=== PATIENT | male | born 1935 | race Caucasian/White ===

== ENCOUNTER 2016-10-11 15:30 | Inpatient (IN) | payer MEDICARE, BC ==
[~2016-10-11] VITALS: Ht 170.2 cm; Wt 95.9 kg
[~2016-10-11 15:30] MED LIST: ALBU6.7H INH; ASPI325T PO; CEFT500T PO; DIGO0.25 PO; FURO1TAB93; GLUC500C3 PO; GLUC750T22 OR; GLUCTAB PO; METO25 PO; NEXI20CA; POTA-243; PRIN10TA; SIMV20TA PO; SPACER; SPIR25TA PO; WARF1TAB PO; ZITH500T PO
[2016-10-11 15:45] VITALS: BP 123/58; PULSE 80; RESP 18; TEMP 97.7; O2SAT 92
--- NOTE | 2016-10-11 15:57 | PD ---
HPI . Low back pain Chief Complaint: Fall Time Seen by Provider: 15:46 Travel History International Travel<30 days: No Contact w/Intl Traveler<30days: No Traveled to known affect area: No History of Present Illness HPI Patient presents with low back pain following a fall. He states that he was up a ladder trimming some trees when the ladder swayed causing him to fall. He estimates that he fell about 10 feet. He is not sure if he landed on his back or on his buttocks. He comes in complaining with low back pain. He denies any other injuries. He describes a sharp pain that is "real bad." He reports neuropathy in his feet. Reports no change in the numbness since the fall. PFSH Past Medical History Atrial Fibrillation: Yes Blood Disorders: No Heart Rhythm Problems: Yes (AFIB) Cancer: Yes (h/o prostate) Cardiovascular Problems: Yes High Cholesterol: Yes Diabetes: Yes Diminished Hearing: No Endocrine: No GERD: Yes Genitourinary: Yes (FREQUENT AND SMALL AMOUNT) Hypertension: Yes (ran out of lisinopril x 2 weeks ago) Immune Disorder: No Musculoskeletal: No Neurologic: No Psychiatric: No Respiratory: No Sleep Apnea: Yes (C-PAP AT HOME) PNEUMOCCOCAL Vaccine (Year): 2009 Past Surgical History Abdominal Surgery: No Body Medical Devices: vantus implant 04/06 Cardiac Surgery: No Prostatectomy: Yes (radical 1998) Other Surgery: Yes (PILONIDAL CYST 1965, PROSTATECTOMY/RADICAL 1998) Social History Alcohol Use: No Tobacco Use: No Substance Use: No Allergies-Medications (Allergen,Severity, Reaction): Coded Allergies: No Known Allergies (Verified , 10/11/16) Reported Meds & Prescriptions Reported Meds & Active Scripts Active Reported Fish Oil ([place]-3 Fatty Acids) 500 Mg Cap Unknown Dose PO TID Vitamin B Complex (B-Complex Vitamins) 1 Tab 1 Tab PO DAILY Warfarin 1 Mg Tab 0.5 Mg PO DAILY@1600 Metoprolol Tartrate 25 Mg Tab 25 Mg PO BID Warfarin 6 Mg Tab 6 Mg PO DAILY@1600 Simvastatin 20 Mg Tab 20 Mg PO DAILY Gabapentin 100 Mg Cap 100 Mg PO TID Aldactone (Spironolactone) 25 Mg Tab 25 Mg PO DAILY Lisinopril 10 Mg Tab 10 Mg PO HS Metformin (Metformin HCl) 500 Mg Tab 500 Mg PO BID With meals Ranitidine (Ranitidine HCl) 150 Mg Tab 150 Mg PO BID K-Tab (Potassium Chloride) 10 Meq Tab 10 Meq PO DAILY Lasix (Furosemide) 40 Mg Tab 40 Mg PO DAILY Review of Systems Except as stated in HPI: all other systems reviewed are Neg HENT: No: Headaches, Lightheadedness Cardiovascular: No: Chest Pain or Discomfort Respiratory: No: Shortness of Breath Gastrointestinal: No: Nausea, Vomiting, Diarrhea, Abdominal Pain Genitourinary: No: Incontinence Musculoskeletal: Positive: Myalgias, Arthralgias Neurologic: Positive: Paresthesia (in his feet) Physical Exam Narrative GENERAL: Healthy-appearing older man in no acute distress. SKIN: Warm and dry. HEAD: Atraumatic. Normocephalic. EYES: Pupils equal and round. Extraocular movements are intact. ENT: No nasal bleeding or discharge. Mucous membranes pink and moist. NECK: Trachea midline. Neck is supple. CARDIOVASCULAR: Regular rate and rhythm. Heart sounds are normal. RESPIRATORY: No accessory muscle use. Lungs are clear with full air movement throughout. GASTROINTESTINAL: Abdomen soft, non-tender, nondistended. MUSCULOSKELETAL: No obvious deformities. No edema. Tender in the low back. Decreased range of motion. NEUROLOGICAL: Awake and alert. No obvious cranial nerve deficits. Motor grossly within normal limits. Normal speech. PSYCHIATRIC: Appropriate mood and affect; insight and judgment normal. Data Data Last Documented VS Vital Signs Date Time Temp Pulse Resp B/P Pulse Ox O2 Delivery O2 Flow Rate FiO2 10/11/16 15:45 97.7 80 18 123/[address] Lumb Spine W/O Contrast (10/11/16 15:50) ^ Saline Lock (10/11/16 15:50) Morphine Inj (Morphine Inj) (10/11/16 16:00) Ondansetron Inj (Zofran Inj) (10/11/16 16:00) Morphine Inj (Morphine Inj) (10/11/16 16:00) Ondansetron Odt (Zofran Odt) (10/11/16 16:00) MDM Medical Decision Making Medical Screen Exam Complete: Yes Emergency Medical Condition: Yes Differential Diagnosis Differential diagnosis includes but is not limited to muscular low back pain, DDD, spinal stenosis, epidural abscess, sciatica, kidney infection or stone. Narrative Course Patient presents complaining with a low back injury secondary to a 10 foot fall. I have ordered an L-spine CT and morphine for pain. L spine CT CONCLUSION: 1. Moderate to severe compression/burst fracture of L2 that appears acute. Mild retropulsion and mild fracture-associated spinal stenosis, slightly eccentric towards the left. No epidural hematoma. 2. Mild chronic appearing wedge deformity of T12 and L1. 3. Mild multilevel degenerative changes as above. No high-grade foraminal or spinal stenosis demonstrated. Physician Communication Physician Communication Dr. Perez, neurosurgery, was consulted. He feels that the patient should have been a trauma alert and requests trauma consult. Diagnosis Primary Impression: L2 vertebral fracture Qualified Code: S32.021A - Closed stable burst fracture of second lumbar vertebra, initial encounter Admitting Information Admitting Physician Requests: Admit Condition: Stable Joanna Norton MD Oct 11, 2016 15:57
[2016-10-11] MEDS ORDERED: MORPHINE SULFATE 8 MG/ML INJ IM ONE (16:00)
[2016-10-11] MEDS ORDERED: MORPHINE SULFATE 8 MG/ML INJ IV PUSH ONE (16:00)
[2016-10-11] MEDS ORDERED: ONDANSETRON HCL 4 MG/2 ML VIAL IV PUSH ONE (16:00)
[2016-10-11] MEDS ORDERED: ONDANSETRON ODT 4 MG TAB PO ONE (16:00)
[2016-10-11] MEDS ORDERED: SIMV20TA PO (16:48)
[2016-10-11] MEDS ORDERED: FURO1TAB60 PO (16:48)
[2016-10-11] MEDS ORDERED: METO25TA3 PO (16:48)
[2016-10-11] MEDS ORDERED: LISI10TA3 PO (16:48)
[2016-10-11] MEDS ORDERED: GABA100C4 PO (16:48)
[2016-10-11] MEDS ORDERED: K-TA10TA PO (16:48)
[2016-10-11] MEDS ORDERED: METF500T PO (16:48)
[2016-10-11] MEDS ORDERED: WARF-60 PO (16:48)
[2016-10-11] MEDS ORDERED: RANI150T PO (16:48)
[2016-10-11] MEDS ORDERED: SPIR25 PO (16:48)
[2016-10-11] MEDS ORDERED: WARF4TAB52 PO (16:59)
[2016-10-11] MEDS ORDERED: FISH500C PO (17:01)
[2016-10-11] MEDS ORDERED: VITATAB11 PO (17:01)
--- NOTE | 2016-10-11 18:37 | RADRPT ---
EXAM DATE/TIME: 10/11/2016 17:24 [facility] COMPARISON: No previous studies available for comparison. INDICATIONS : Fell off ladder today,lower back pain. RADIATION DOSE: 28.77 CTDIvol (mGy) MEDICAL HISTORY : Cardiovascular disease. Hypertension. Carcinoma, prostate.Diabetes SURGICAL HISTORY : Prostatectomy. ENCOUNTER: Initial ACUITY: 1 day PAIN SCALE: 8/10 LOCATION: Lumbar TECHNIQUE: Volumetric scanning of the lumbar spine was performed. Multiplanar reconstructions in the sagittal, coronal and oblique axial planes were performed. Using automated exposure control and adjustment of the mA and/or kV according to patient size, radiation dose was kept as low as reasonably achievable t o obtain optimal diagnostic quality images. FINDINGS: Moderate to severe, acute appearing compression/burst fracture seen of the L2 vertebral body. There i s about 4 mm of retropulsion causing mild fracture-associated spinal stenosis. There is no significan t fracture-associated foraminal stenosis at L1/L2 or L2/L3. Mild, chronic appearing anterior wedging seen of the T12 and L1 vertebral bodies without cortical nabila ak or trabecular disruption. There is a moderate-sized left paracentral disc protrusion at T12/L1 causing mild spinal stenosis but doubt conus compression or transiting nerve root impingement. There are small, broad posterior disc protrusions at the other levels. Mild bilateral foraminal stenosis seen from L2/L3-L5/S1. No signific ant spinal stenosis demonstrated. No evidence of an epidural hematoma. Incidentally seen moderate to large hiatal hernia. CONCLUSION: 1. Moderate to severe compression/burst fracture of L2 that appears acute. Mild retropulsion and mild fracture-associated spinal stenosis, slightly eccentric towards the left. No epidural hematoma. 2. Mild chronic appearing wedge deformity of T12 and L1. 3. Mild multilevel degenerative changes as above. No high-grade foraminal or spinal stenosis demonstr ated. Jm Chong MD on October 11, 2016 at 18:28 Board Certified Radiologist. This report was verified electronically.
[2016-10-11 19:25] LABS: AUTOMATED NEUTROPHIL # 12.2 TH/MM3 (1.8-7.7); BASOPHIL % 0.3 % (0.0-2.0); HEMATOCRIT 38.8 % (39.0-51.0); HEMO FLAGS DIFF FINAL; LYMPH % 10.1 % (9.0-44.0); LYMPHOCYTE # 1.5 TH/MM3 (1.0-4.8); MEAN CELL VOLUME 84.7 FL (80.0-100.0); MEAN CORPUSCULAR HEMOGLOBIN 28.5 PG (27.0-34.0); MEAN CORPUSCULAR HGB CONC 33.7 % (32.0-36.0); MONO % 4.8 % (0.0-8.0); NEUT % 84.8 % (16.0-70.0); PLATELET COUNT 257 TH/MM3 (150-450); RED BLOOD COUNT 4.59 MIL/MM3 (4.50-5.90); RED CELL DISTRIBUTION WIDTH 14.4 % (11.6-17.2); WHITE BLOOD COUNT 14.4 TH/MM3 (4.0-11.0)
--- NOTE | 2016-10-11 19:31 | RADRPT ---
EXAM DATE/TIME: 10/11/2016 19:07 [facility] COMPARISON: No previous studies available for comparison. INDICATIONS : Trauma to chest post fall from ladder today MEDICAL HISTORY : None. SURGICAL HISTORY : None. ENCOUNTER: Initial ACUITY: 1 day PAIN SCORE: 0/10 LOCATION: Bilateral chest FINDINGS: Dense consolidation seen laterally at the left lung base, nonspecific but in the setting of trauma ma y indicate pulmonary contusion and/or hemothorax. A don't see a pneumothorax. Right lung reasonably c lear. Mild cardiomegaly noted. Thoracic aorta is tortuous. No clearly see a fracture. CONCLUSION: Nonspecific opacification laterally of the left lung base. A CT of the chest is suggested, preferably with intravenous contrast. Please see above. Right lung is clear. Jm Chong MD on October 11, 2016 at 19:28 Board Certified Radiologist. This report was verified electronically.
--- NOTE | 2016-10-11 19:33 | RADRPT ---
EXAM DATE/TIME: 10/11/2016 19:04 [facility] COMPARISON: No previous studies available for comparison. INDICATIONS : Trauma to chest post fall from ladder today MEDICAL HISTORY : None. SURGICAL HISTORY : Prostatectomy. ENCOUNTER: Initial ACUITY: 1 day PAIN SCORE: 0/10 LOCATION: Bilateral pelvis FINDINGS: A single frontal view of the pelvis demonstrates no evidence of fracture. The bony pelvic ring is in tact. Bony mineralization is normal. The soft tissues are intact. CONCLUSION: Intact pelvis. Jm Chong MD on October 11, 2016 at 19:31 Board Certified Radiologist. This report was verified electronically.
[2016-10-11 19:38] LABS: INTERNATIONAL NORMALIZED RATIO 2.5 RATIO; PROTHROMBIN TIME - PATIENT 29.1 SEC (9.8-11.6)
[2016-10-11 19:47] VITALS: BP 99/55; PULSE 90; RESP 18; O2SAT 92
[2016-10-11 19:49] LABS: BICARBONATE 25.6 MEQ/L (21.0-32.0); POTASSIUM 4.6 MEQ/L (3.5-5.1)
--- NOTE | 2016-10-11 19:52 | PD.CONS ---
[facility] Service Neurosurgery Consult Requested By Dr Hummel Reason for Consult Fall from a ladder > 10 feet Primary Care Physician Dante Manning, DO History of Present Illness This is a 81 year old male who was up a ladder trimming some trees when the ladder swayed causing him to fall. He estimates that he fell about 10 feet. He is not sure if he landed on his back or on his buttocks. Sudden onset of low back pain. No LOC. N sezire activity. No tongue bitting. Nop incontnence of stool or urine. He comes to the emergency department complaining of severe low back pain. His pain is located in the upper lumbar and thoracolumbar region. Severity 10/10. He describes a sharp, stabbing pain. he has numbness in his lower eextremities and feet, which is chronic. CT lumbar spine showed a L2 fracture. Neurosurtgical consultation was requested. Review of Systems Constitutional: DENIES: Diaphoretic episodes, Fatigue, Fever, Weight gain, Weight loss, Chills, Dizziness, Change in appetite, Night Sweats Endocrine: DENIES: Heat/cold intolerance, Polydipsia, Polyuria, Polyphagia Eyes: DENIES: Blurred vision, Diplopia, Eye inflammation, Eye pain, Vision loss , Photosensitivity, Double Vision Ears, nose, mouth, throat: DENIES: Tinnitus, Hearing loss, Vertigo, Nasal discharge, Oral lesions, Throat pain, Hoarseness, Ear Pain, Running Nose, Epistaxis, Sinus Pain, Toothache, Odynophagia Respiratory: DENIES: Apneas, Cough, Snoring, Wheezing, Hemoptysis, Sputum production, Shortness of breath Cardiovascular: DENIES: Chest pain, Palpitations, Syncope, Dyspnea on Exertion , PND, Lower Extremity Edema, Orthopnea, Claudication Genitourinary: DENIES: Sexual dysfunction, Urinary frequency, Urinary incontinence, Urgency, Hematuria, Dysuria, Nocturia, Penile Discharge, Testicular Pain, Testicular Swelling Musculoskeletal: COMPLAINS OF: Joint pain, Muscle aches, Back pain, DENIES: Stiffness, Joint Swelling, Neck pain Integumentary: DENIES: Abnormal pigmentation, Nail changes, Pruritus, Rash Hematologic/lymphatic: DENIES: Bruising, Lymphadenopathy Immunologic/allergic: DENIES: Eczema, Urticaria Neurologic: COMPLAINS OF: Abnormal gait, Paresthesias, DENIES: Headache, Localized weakness, Seizures, Speech Problems, Tremor, Poor Balance Psychiatric: DENIES: Anxiety, Confusion, Mood changes, Depression, Hallucinations, Agitation, Suicidal Ideation, Homicidal Ideation, Delusions Past Family Social History Allergies: Coded Allergies: No Known Allergies (Verified , 10/11/16) Past Medical History Atrial Fibrillation AFIB prostate Ca High Cholesterol Diabetes mellitus GERD Hypertension Sleep Apnea, C-PAP AT HOME Past Surgical History Prostatectomy PILONIDAL CYST Reported Medications Fish Oil ([place]-3 Fatty Acids) 500 Mg Cap Unknown Dose PO TID Vitamin B Complex (B-Complex Vitamins) 1 Tab 1 Tab PO DAILY Warfarin 1 Mg Tab 0.5 Mg PO DAILY@1600 Metoprolol Tartrate 25 Mg Tab 25 Mg PO BID Warfarin 6 Mg Tab 6 Mg PO DAILY@1600 Simvastatin 20 Mg Tab 20 Mg PO DAILY Gabapentin 100 Mg Cap 100 Mg PO TID Aldactone (Spironolactone) 25 Mg Tab 25 Mg PO DAILY Lisinopril 10 Mg Tab 10 Mg PO HS Metformin (Metformin HCl) 500 Mg Tab 500 Mg PO BID With meals Ranitidine (Ranitidine HCl) 150 Mg Tab 150 Mg PO BID K-Tab (Potassium Chloride) 10 Meq Tab 10 Meq PO DAILY Lasix (Furosemide) 40 Mg Tab 40 Mg PO DAILY Active Ordered Medications Current Medications Morphine Sulfate (Morphine Inj) 8 mg ONCE ONCE IV PUSH ; Start 10/11/16 at 16: 00; Stop 10/11/16 at 16:00; Status DC Ondansetron HCl (Zofran Inj) 4 mg ONCE ONCE IV PUSH ; Start 10/11/16 at 16:00; Stop 10/11/16 at 16:00; Status DC Morphine Sulfate (Morphine Inj) 8 mg ONCE ONCE IM Last administered on 16:47; Start 10/11/16 at 16:00; Stop 10/11/16 at 16:01; Status DC Ondansetron HCl (Zofran Odt) 4 mg ONCE ONCE PO Last administered on 16:47; Start 10/11/16 at 16:00; Stop 10/11/16 at 16:01; Status DC Coumadin Family History Non contributory Social History Alcohol Use: No Tobacco Use: No Substance Use: No Physical Exam Vital Signs Vital Signs Date Time Temp Pulse Resp B/P Pulse Ox O2 Delivery O2 Flow Rate FiO2 10/11/16 15:45 97.7 80 18 123/58 92 Physical Exam He is alert, awake and oriented to time, place and person. Speech is fluent. Higher cognitive functions are normal. Cranial nerve examination demonstrates the pupils to be equal, round, and reactive to light. Extra-ocular movements are intact. Facial motor and sensory function are normal and symmetrical. Gross hearing is intact, bilaterally. The uvula is midline and elevates symmetrically with the soft palate. Sternocleidomastoid and trapezius muscles have normal and symmetrical strength. Other cranial nerves are intact. Neck is soft and supple. Cervical spine has a full range of motion in anterior flexion, extension, lateral bending, and rotation without pain. There is no tenderness to palpation to the spinous processes or paraspinal muscles. Muscle testing reveals normal bulk and tone overall without rigidity, spasticity , fasciculations, or atrophy. Muscle strength is 5/5 in all muscle groups of both upper extremities including deltoid, biceps, triceps, brachioradialis, wrist extension and manager title. In the lower extremities, strength examination is limited with giveaway due to pain. Good strenght in iliopsoas, quadriceps, hamstrings, plantar flexion, dorsiflexion, and extensor hallicus longus. Sensory examination is decreased in both feet Deep tendon reflexes are 2+ and symmetrical in the biceps, triceps, and brachioradialis, bilaterally, in the upper extremities. In the lower extremities , the patellar and Achilles are 2+, bilaterally. There is a bilateral plantar flexion response. Hoffmanns sign is negative. There is no clonus or other abnormal reflexes noted. Cerebellar examination is intact to [id number] test, rapid rhythmic alternating motion. There is no dysmetria, dysdiadochokinesia, truncal ataxia, or tremor. Laboratory Laboratory Tests Test 10/11/16 19:15 White Blood Count 14.4 Red Blood Count 4.59 Hemoglobin 13.1 Hematocrit 38.8 Mean Corpuscular Volume 84.7 Mean Corpuscular Hemoglobin 28.5 Mean Corpuscular Hemoglobin 33.7 Concent Red Cell Distribution Width 14.4 Platelet Count 257 Mean Platelet Volume 7.3 Neutrophils (%) (Auto) 84.8 Lymphocytes (%) (Auto) 10.1 Monocytes (%) (Auto) 4.8 Eosinophils (%) (Auto) 0.0 Basophils (%) (Auto) 0.3 Neutrophils # (Auto) 12.2 Lymphocytes # (Auto) 1.5 Monocytes # (Auto) 0.7 Eosinophils # (Auto) 0.0 Basophils # (Auto) 0.0 CBC Comment DIFF FINAL Differential Comment Result Diagram: 10/11/16 1915 Imaging Last Impressions Chest X-Ray 10/11/16 1854 Signed Impressions: Service Date/Time: Tuesday, October 11, 2016 19:07 - CONCLUSION: Nonspecific opacification laterally of the left lung base. A CT of the chest is suggested, preferably with intravenous contrast. Please see above. Right lung is clear. Jm Chong MD Lumbar Spine CT 10/11/16 1550 Signed Impressions: Service Date/Time: Tuesday, October 11, 2016 17:24 - CONCLUSION: 1. Moderate to severe compression/burst fracture of L2 that appears acute. Mild retropulsion and mild fracture-associated spinal stenosis, slightly eccentric towards the left. No epidural hematoma. 2. Mild chronic appearing wedge deformity of T12 and L1. 3. Mild multilevel degenerative changes as above. No high-grade foraminal or spinal stenosis demonstrated. Jm Chong MD Assessment and Plan Assessment and Plan 1. Severe burst fracture of L2, acute. Mild retropulsion and mild fracture- associated spinal stenosis 2. chronic appearing wedge deformity of T12 and L1. Attending Statement I have reviewed his clinical and radiological studies. This patient clearly meets trauma alert criteria, almost 82 years old, fell from 10 feet with clinical evidence of a spinal fracture. Start neuro checks in a serial fashion. I am concerned that the fracture likely is unstable. Recommend admision to SICU. Follow up MRI ordered. Please consult trauma surgeon as the mechanism of trauma is concerning for other potential missed internal injuries, pulmonary contusion, etc He is anticoagulated with warfarin His INR is elevated. he will need to be corrected for potential surgery Respiratory. pulmonary toilette, nasotracheal suction, and breathing treatments with nebulizers. Lumbar fractures. Recommend a MRI lumbar spine [facility] PT and OT eval Nutrition. Oral diet Renal. monitor closely urine output, BUN and creatinine Endocrine. Monitor serial Acu checks and SSI for tight control ID monitor for signs of infection Protonix for stress ulcer prophylaxis Nicolas hose and SCD's for DVT prophylaxis Further recommendations depending on his clinical evaluation and follow up radiologic studies Mj Perez MD Oct 11, 2016 19:52
[2016-10-11 20:43] VITALS: BP 141/71; PULSE 87; RESP 18; O2SAT 93
[2016-10-11] MEDS ORDERED: IOHEXOL 350 MG/ML 10 ML VIAL (for RAD DIAG) IV ONE (21:14)
[2016-10-11] MEDS ORDERED: CHLORHEXIDINE GLUCONATE 2 % 1 PACK (2 CLOTHS) TOP PRN (21:15)
[2016-10-11] MEDS ORDERED: MISCELLANEOUS NURSING INFORMATION XX SCH (21:15)
[2016-10-11] MEDS ORDERED: SODIUM CHLORIDE 0.9% FLUSH 10 ML FLUSH IV FLUSH PRN (21:15)
--- NOTE | 2016-10-11 21:25 | RADRPT ---
EXAM DATE/TIME: 10/11/2016 21:09 [facility] COMPARISON: No previous studies available for comparison. INDICATIONS : Trauma. Fell off ladder today. RADIATION DOSE: 56.37 CTDIvol (mGy) MEDICAL HISTORY : Cardiovascular disease. Hypertension. Diabetes mellitus type 2. SURGICAL HISTORY : Prostatectomy. ENCOUNTER: Initial ACUITY: 1 day PAIN SCALE: 2/10 LOCATION: cranial TECHNIQUE: Multiple contiguous axial images were obtained of the head. Using automated exposure control and adj ustment of the mA and/or kV according to patient size, radiation dose was kept as low as reasonably a chievable to obtain optimal diagnostic quality images. FINDINGS: CEREBRUM: The ventricles are normal for age. No evidence of midline shift, mass lesion, hemorrhage or acute in farction. No extra-axial fluid collections are seen. POSTERIOR FOSSA: The cerebellum and brainstem are intact. The 4th ventricle is midline. The cerebellopontine angle i s unremarkable. EXTRACRANIAL: The visualized portion of the orbits is intact. SKULL: The calvaria is intact. No evidence of skull fracture. CONCLUSION: No bleed or other acute intracranial abnormality. Jm Chong MD on October 11, 2016 at 21:23 Board Certified Radiologist. This report was verified electronically.
--- NOTE | 2016-10-11 21:31 | RADRPT ---
EXAM DATE/TIME: 10/11/2016 21:09 [facility] COMPARISON: No previous studies available for comparison. INDICATIONS : Trauma. Fell off ladder today RADIATION DOSE: 26.70 CTDIvol (mGy) MEDICAL HISTORY : Cardiovascular disease. Hypertension. Diabetes mellitus type 2. SURGICAL HISTORY : Prostatectomy. ENCOUNTER: Initial ACUITY: 1 day PAIN SCALE: 2/10 LOCATION: neck TECHNIQUE: Volumetric scanning of the cervical spine was performed. Multiplanar reconstructions in the sagittal, coronal and oblique axial planes were performed. Using automated exposure control and adjustment o f the mA and/or kV according to patient size, radiation dose was kept as low as reasonably achievable to obtain optimal diagnostic quality images. FINDINGS: A couple millimeters of degenerative appearing retrolisthesis seen at C3/C4. No fracture or acute reno earing malalignment demonstrated. Moderate disc space narrowing with uncovertebral and facet osteoarthritis seen at each level from C3/ C4-C6/C7. There is moderate right foraminal stenosis at C3/C4 and C4/C5, mild foraminal stenosis at t he other levels. No significant spinal stenosis demonstrated CONCLUSION: Degenerative changes of the cervical spine as above. No fracture or acute malalignment. Jm Chong MD on October 11, 2016 at 21:27 Board Certified Radiologist. This report was verified electronically.
--- NOTE | 2016-10-11 21:35 | RADRPT ---
EXAM DATE/TIME: 10/11/2016 21:17 [facility] COMPARISON: No previous studies available for comparison. INDICATIONS : Trauma. Fell off ladder today IV CONTRAST: 95 cc Omnipaque 350 (iohexol) IV ; Cumulative dose for multiple exams. RADIATION DOSE: 18.52 CTDIvol (mGy) ; Combined studies - Thorax/Abdomen/Pelvis MEDICAL HISTORY : Cardiovascular disease. Hypertension. Diabetes mellitus type 2. SURGICAL HISTORY : Prostatectomy. ENCOUNTER: Initial ACUITY: 1 day PAIN SCALE: 2/10 LOCATION: Bilateral chest TECHNIQUE: Volumetric scanning of the chest was performed. Using automated exposure control and adjustment of t he mA and/or kV according to patient size, radiation dose was kept as low as reasonably achievable to obtain optimal diagnostic quality images. FINDINGS: Old, healed left rib fractures are present. Modestly exuberant callus formation and there is associat ed mild chronic appearing pleural thickening. No acute fracture demonstrated. Mild, bibasilar atelect asis noted. There is panchamber enlargement of the heart. Right and left-sided coronary artery calcification note d. No mediastinal hematoma. There is a moderate-sized hiatal hernia. CONCLUSION: 1. Other than trace bibasilar atelectasis, no acute abnormality demonstrated. 2. Old, healed left rib fractures with callus formation and mild deformity as well as mild, chronic p leural thickening. No acute fracture. 3. Moderate hiatal hernia. 4. Cardiomegaly and coronary artery calcification. Jm Chong MD on October 11, 2016 at 21:30 Board Certified Radiologist. This report was verified electronically.
--- NOTE | 2016-10-11 21:40 | RADRPT ---
EXAM DATE/TIME: 10/11/2016 21:17 [facility] COMPARISON: No previous studies available for comparison. INDICATIONS : Trauma. Fell off ladder today. IV CONTRAST: 95 cc Omnipaque 350 (iohexol) IV ; Cumulative dose for multiple exams. ORAL CONTRAST: No oral contrast ingested. RADIATION DOSE: 18.52 CTDIvol (mGy) ; Combined studies - Thorax/Abdomen/Pelvis MEDICAL HISTORY : Cardiovascular disease. Hypertension. Diabetes mellitus type 2. SURGICAL HISTORY : Prostatectomy. ENCOUNTER: Initial ACUITY: 1 day PAIN SCALE: 8/10 LOCATION: middle back and abdomen TECHNIQUE: Volumetric scanning of the abdomen and pelvis was performed. Using automated exposure control and ad justment of the mA and/or kV according to patient size, radiation dose was kept as low as reasonably achievable to obtain optimal diagnostic quality images. FINDINGS: LOWER LUNGS: The visualized lower lungs are clear. LIVER: Homogeneous density without lesion. There is no dilation of the biliary tree. No calcified gallston es. SPLEEN: Normal size without lesion. PANCREAS: Within normal limits. KIDNEYS: Normal in size and shape. There is no mass, stone or hydronephrosis. ADRENAL GLANDS: Within normal limits. VASCULAR: There is no aortic aneurysm. BOWEL/MESENTERY: The stomach, small bowel, and colon demonstrate no acute abnormality. There is no free intraperitone al air or fluid. ABDOMINAL WALL: Within normal limits. RETROPERITONEUM: There is no lymphadenopathy. BLADDER: 19 mm posterior nodular soft tissue opacities seen, series 6 image 88. REPRODUCTIVE: Previous prostatectomy. INGUINAL: Bilateral fat-containing inguinal hernias are present. The appendix is partly herniated on the right. No other bowel herniation demonstrated. MUSCULOSKELETAL: There is an L2 compression fracture. No other acute abnormalities are seen of the visualized osseous structures. CONCLUSION: 1. No visceral organ injury or other acute abnormality within the abdomen or pelvis. 2. Acute L2 burst fracture. 3. Nodular focus posteriorly of the urinary bladder. This is nonspecific. Patient has had previous pr ostatectomy and a localized area of mildly masslike scarring possible. True mass not excludable by th e CT appearance. Direct visualization with cystoscopy recommended when clinically feasible. 4. Bilateral inguinal hernias containing fat and the appendix on the right and containing fat only on the left. No acute complication demonstrated. Jm Chong MD on October 11, 2016 at 21:34 Board Certified Radiologist. This report was verified electronically.
[2016-10-11] MEDS: HYDROmorphone HCL PF 1 MG/ML VIAL IV PUSH PRN (21:44)
[2016-10-11] MEDS: ONDANSETRON HCL 4 MG/2 ML VIAL IV PRN (21:44)
--- NOTE | 2016-10-11 22:09 | HHI.HP ---
History of Present Illness Primary Care Physician Dante Manning, DO Admission Diagnosis L2 burst fx Diagnoses: (1) L2 vertebral fracture Diagnosis: Principal (2) Hypertension Diagnosis: Secondary (3) Diabetes mellitus Diagnosis: Secondary History of Present Illness pt was trimming trees on a ladder when he lost his balance and fell to the ground injuring his lower back ED xrays show burst fx of L2 Review of Systems Musculoskeletal: COMPLAINS OF: Back pain Past Family Social History Allergies: Coded Allergies: No Known Allergies (Verified , 10/11/16) Past Medical History hypertension a-fib type II diabetes Past Surgical History TURP Vasectomy Active Ordered Medications Current Medications Medications (Trade) Dose Ordered Sig/Rachel Route PRN Reason Start Time Stop Time Status Last Admin Dose Admin Sodium Chloride (NS 1000 ml Inj) 1,000 ml @ 100 mls/hr Q10H IV 10/11/16 21:02 Sodium Chloride (NS Flush) 2 ml UNSCH PRN IV FLUSH FLUSH AFTER USING IV ACCESS 10/11/16 21:15 Sodium Chloride (NS Flush) 2 ml BID IV FLUSH 10/11/16 21:15 Ondansetron HCl (Zofran Inj) 4 mg Q6H PRN IV NAUSEA OR VOMITING 10/11/16 21:15 10/11/16 21:44 Lactulose (Lactulose Liq) 30 ml DAILY PO 10/12/16 09:00 Miscellaneous Information 1 Q361D XX 10/11/16 21:15 Chlorhexidine Gluconate (Chlorhexidine 2% Cloth) 3 pack Taper DAILY@04 TOP 10/12/16 04:00 10/08/17 03:59 Chlorhexidine Gluconate (Chlorhexidine 2% Cloth) 3 pack UNSCH PRN TOP HYGIENIC CARE 10/11/16 21:15 Hydromorphone HCl (Dilaudid Pf Inj) 0.5 mg Q3HR PRN IV PUSH PAIN SCALE 5 TO 10 10/11/16 21:15 10/11/16 21:44 Hydromorphone HCl (Dilaudid Pf Inj) 0.2 mg Q3HR PRN IV PUSH PAIN SCALE 1 TO 5 10/11/16 21:15 Family History father of an [place] mother of old age Social History non smoker rare drinker Physical Exam Vital Signs Vital Signs Date Time Temp Pulse Resp B/P Pulse Ox O2 Delivery O2 Flow Rate FiO2 10/11/16 20:43 87 18 141/71 93 Room Air 10/11/16 19:47 90 18 99/55 92 Nasal Cannula 2 10/11/16 15:45 97.7 80 18 123/58 92 Physical Exam GENERAL: This is a well-nourished, well-developed patient, in no apparent distress. SKIN: No rashes, ecchymoses or lesions. Cool and dry. HEAD: Atraumatic. Normocephalic. No temporal or scalp tenderness. EYES: Pupils equal round and reactive. Extraocular motions intact. No scleral icterus. No injection or drainage. ENT: Nose without bleeding, purulent drainage or septal hematoma. Throat without erythema, tonsillar hypertrophy or exudate. Uvula midline. Airway patent. NECK: Trachea midline. No JVD or lymphadenopathy. Supple, nontender, no meningeal signs. CARDIOVASCULAR: Regular rate and rhythm without murmurs, gallops, or rubs. RESPIRATORY: Clear to auscultation. Breath sounds equal bilaterally. No wheezes , rales, or rhonchi. GASTROINTESTINAL: Abdomen soft, non-tender, nondistended. No hepato-splenomegaly , or palpable masses. No guarding. MUSCULOSKELETAL: Extremities without clubbing, cyanosis, or edema. No joint tenderness, effusion, or edema noted. No calf tenderness. Negative Homans sign bilaterally.pain in lumbar spine non radiating moves both lower extremities well no paeresthesias noted NEUROLOGICAL: Awake and alert. Cranial nerves II through XII intact. Motor and sensory grossly within normal limits. Five out of 5 muscle strength in all muscle groups. Normal speech. Laboratory Laboratory Tests Test 10/11/16 19:15 White Blood Count 14.4 Red Blood Count 4.59 Hemoglobin 13.1 Hematocrit 38.8 Mean Corpuscular Volume 84.7 Mean Corpuscular Hemoglobin 28.5 Mean Corpuscular Hemoglobin 33.7 Concent Red Cell Distribution Width 14.4 Platelet Count 257 Mean Platelet Volume 7.3 Neutrophils (%) (Auto) 84.8 Lymphocytes (%) (Auto) 10.1 Monocytes (%) (Auto) 4.8 Eosinophils (%) (Auto) 0.0 Basophils (%) (Auto) 0.3 Neutrophils # (Auto) 12.2 Lymphocytes # (Auto) 1.5 Monocytes # (Auto) 0.7 Eosinophils # (Auto) 0.0 Basophils # (Auto) 0.0 CBC Comment DIFF FINAL Differential Comment Prothrombin Time 29.1 Prothromb Time International 2.5 Ratio Activated Partial 38.0 Thromboplast Time Sodium Level 137 Potassium Level 4.6 Chloride Level 103 Carbon Dioxide Level 25.6 Anion Gap 8 Blood Urea Nitrogen 20 Creatinine 0.89 Estimat Glomerular Filtration 82 Rate Random Glucose 130 Calcium Level 9.0 Result Diagram: 10/11/16191410/11/161914 Imaging Last 24 hours Impressions Pelvis X-Ray 10/11/161853 Signed Impressions: Service Date/Time: Tuesday, October 11, 2016 19:04 - CONCLUSION: Intact pelvis. Jm Chong MD Chest X-Ray 10/11/161853 Signed Impressions: Service Date/Time: Tuesday, October 11, 2016 19:07 - CONCLUSION: Nonspecific opacification laterally of the left lung base. A CT of the chest is suggested, preferably with intravenous contrast. Please see above. Right lung is clear. Jm Chong MD Lumbar Spine CT 10/11/16 1550 Signed Impressions: Service Date/Time: Tuesday, October 11, 2016 17:24 - CONCLUSION: 1. Moderate to severe compression/burst fracture of L2 that appears acute. Mild retropulsion and mild fracture-associated spinal stenosis, slightly eccentric towards the left. No epidural hematoma. 2. Mild chronic appearing wedge deformity of T12 and L1. 3. Mild multilevel degenerative changes as above. No high-grade foraminal or spinal stenosis demonstrated. Jm Chong MD Head CT 10/11/16 0000 Signed Impressions: Service Date/Time: Tuesday, October 11, 2016 21:09 - CONCLUSION: No bleed or other acute intracranial abnormality. Jm Chong MD Chest CT 10/11/16 0000 Signed Impressions: Service Date/Time: Tuesday, October 11, 2016 21:17 - CONCLUSION: 1. Other than trace bibasilar atelectasis, no acute abnormality demonstrated. 2. Old, healed left rib fractures with callus formation and mild deformity as well as mild, chronic pleural thickening. No acute fracture. 3. Moderate hiatal hernia. 4. Cardiomegaly and coronary artery calcification. Jm Chong MD Cervical Spine CT 10/11/16 0000 Signed Impressions: Service Date/Time: Tuesday, October 11, 2016 21:09 - CONCLUSION: Degenerative changes of the cervical spine as above. No fracture or acute malalignment. Jm Chong MD Abdomen/Pelvis CT 10/11/16 0000 Signed Impressions: Service Date/Time: Tuesday, October 11, 2016 21:17 - CONCLUSION: 1. No visceral organ injury or other acute abnormality within the abdomen or pelvis. 2. Acute L2 burst fracture. 3. Nodular focus posteriorly of the urinary bladder. This is nonspecific. Patient has had previous prostatectomy and a localized area of mildly masslike scarring possible. True mass not excludable by the CT appearance. Direct visualization with cystoscopy recommended when clinically feasible. 4. Bilateral inguinal hernias containing fat and the appendix on the right and containing fat only on the left. No acute complication demonstrated. Jm Chong MD Course pts pain stabilized neuro surgery and trauma consulted pts INR up 2.5 may require FFP if going to OR tonight Assessment and Plan Problem List: (1) L2 vertebral fracture Status: Acute (2) Hypertension Status: Acute (3) Diabetes mellitus Status: Acute (4) A-fib Status: Chronic Plan: fully anticoagulated now on coumadin with inr 2,5 Assessment and Plan neurosurgical consult for L2 burst fx may require FFP if to surgery tonight Discussed Condition With pt and son Discharge Planning may need [facility] term snf [facility] Problem Qualifiers (1) L2 vertebral fracture: Qualified Code: S32.021A - Closed stable burst fracture of second lumbar vertebra, initial encounter (2) Diabetes mellitus: (3) A-fib: Qualified Code: I48.2 - Chronic atrial fibrillation Dante Manning DO Oct 11, 2016 22:09
[2016-10-11 22:17] LABS: BLOOD, URINE NEG (NEG); COMMENT (UR) CULT NOT INDICATED; CULTURE IF INDICATED CULT NOT INDICATED; GLUCOSE,URINE NEG (NEG); KETONE, URINE NEG (NEG); MUCUS URINE FEW /lpf (OCC); NITRITE,URINE NEG (NEG); SQUAMOUS EPITHELIAL CELL URINE <1 /hpf (0-5); URINE COLOR YELLOW (YELLW/STRAW)
[2016-10-11] MEDS: SODIUM CHLOR 0.9% 1000 ML INJ 1,000 ML IV SCH (22:27)
--- NOTE | 2016-10-11 22:27 | HHI.HP ---
History of Present Illness Primary Care Physician Dante Manning, DO Admission Diagnosis L2 burst fx Diagnoses: History of Present Illness Pat was trimming trees on a ladder when he lost his balance and fell to the ground injuring his lower back ED xrays show burst fx of L2.Already seen by the neurosurgeon and trauma assessment requested. Review of Systems Constitutional: DENIES: Diaphoretic episodes, Fatigue, Fever, Weight gain, Weight loss, Chills, Dizziness, Change in appetite, Night Sweats Endocrine: DENIES: Heat/cold intolerance, Polydipsia, Polyuria, Polyphagia Eyes: DENIES: Blurred vision, Diplopia, Eye inflammation, Eye pain, Vision loss , Photosensitivity, Double Vision Ears, nose, mouth, throat: DENIES: Tinnitus, Hearing loss, Vertigo, Nasal discharge, Oral lesions, Throat pain, Hoarseness, Ear Pain, Running Nose, Epistaxis, Sinus Pain, Toothache, Odynophagia Respiratory: DENIES: Apneas, Cough, Snoring, Wheezing, Hemoptysis, Sputum production, Shortness of breath Cardiovascular: DENIES: Chest pain, Palpitations, Syncope, Dyspnea on Exertion , PND, Lower Extremity Edema, Orthopnea, Claudication Gastrointestinal: DENIES: Abdominal pain, Black stools, Bloody stools, Constipation, Diarrhea, Nausea, Vomiting, Difficulty Swallowing, Anorexia Genitourinary: DENIES: Sexual dysfunction, Urinary frequency, Urinary incontinence, Urgency, Hematuria, Dysuria, Nocturia, Penile Discharge, Testicular Pain, Testicular Swelling Musculoskeletal: DENIES: Joint pain, Muscle aches, Stiffness, Joint Swelling, Back pain, Neck pain Integumentary: DENIES: Abnormal pigmentation, Nail changes, Pruritus, Rash Hematologic/lymphatic: DENIES: Bruising, Lymphadenopathy Immunologic/allergic: DENIES: Eczema, Urticaria Neurologic: DENIES: Abnormal gait, Headache, Localized weakness, Paresthesias, Seizures, Speech Problems, Tremor, Poor Balance Psychiatric: DENIES: Anxiety, Confusion, Mood changes, Depression, Hallucinations, Agitation, Suicidal Ideation, Homicidal Ideation, Delusions Past Family Social History Allergies: Coded Allergies: No Known Allergies (Verified , 10/11/16) Past Medical History afib Past Surgical History TURP Reported Medications coumadin Active Ordered Medications Last 24 hours Impressions Pelvis X-Ray 10/11/16 6286 Signed Impressions: Service Date/Time: SundayOctober 11, 2016 19:04 - CONCLUSION: Intact pelvis. Jm Chong MD Chest X-Ray 10/11/16 1524 Signed Impressions: Service Date/Time: Tuesday, October 11, 2016 19:07 - CONCLUSION: Nonspecific opacification laterally of the left lung base. A CT of the chest is suggested, preferably with intravenous contrast. Please see above. Right lung is clear. Jm Chong MD Lumbar Spine CT 10/11/16 1550 Signed Impressions: Service Date/Time: Tuesday, October 11, 2016 17:24 - CONCLUSION: 1. Moderate to severe compression/burst fracture of L2 that appears acute. Mild retropulsion and mild fracture-associated spinal stenosis, slightly eccentric towards the left. No epidural hematoma. 2. Mild chronic appearing wedge deformity of T12 and L1. 3. Mild multilevel degenerative changes as above. No high-grade foraminal or spinal stenosis demonstrated. Jm Chong MD Head CT 10/11/16 0000 Signed Impressions: Service Date/Time: Tuesday, October 11, 2016 21:09 - CONCLUSION: No bleed or other acute intracranial abnormality. Jm Chong MD Chest CT 10/11/16 0000 Signed Impressions: Service Date/Time: Tuesday, October 11, 2016 21:17 - CONCLUSION: 1. Other than trace bibasilar atelectasis, no acute abnormality demonstrated. 2. Old, healed left rib fractures with callus formation and mild deformity as well as mild, chronic pleural thickening. No acute fracture. 3. Moderate hiatal hernia. 4. Cardiomegaly and coronary artery calcification. Jm Chong MD Cervical Spine CT 10/11/16 0000 Signed Impressions: Service Date/Time: Tuesday, October 11, 2016 21:09 - CONCLUSION: Degenerative changes of the cervical spine as above. No fracture or acute malalignment. Jm Chong MD Abdomen/Pelvis CT 10/11/16 0000 Signed Impressions: Service Date/Time: Tuesday, October 11, 2016 21:17 - CONCLUSION: 1. No visceral organ injury or other acute abnormality within the abdomen or pelvis. 2. Acute L2 burst fracture. 3. Nodular focus posteriorly of the urinary bladder. This is nonspecific. Patient has had previous prostatectomy and a localized area of mildly masslike scarring possible. True mass not excludable by the CT appearance. Direct visualization with cystoscopy recommended when clinically feasible. 4. Bilateral inguinal hernias containing fat and the appendix on the right and containing fat only on the left. No acute complication demonstrated. Jm Chong MD Family History father [place] Social History no etoh Physical Exam Vital Signs Vital Signs Date Time Temp Pulse Resp B/P Pulse Ox O2 Delivery O2 Flow Rate FiO2 10/11/16 20:43 87 18 141/71 93 Room Air 10/11/16 19:47 90 18 99/55 92 Nasal Cannula 2 10/11/16 15:45 97.7 80 18 123/58 92 Physical Exam GENERAL: This is a well-nourished, well-developed patient, in no apparent distress. SKIN: No rashes, ecchymoses or lesions. Cool and dry. HEAD: Atraumatic. Normocephalic. No temporal or scalp tenderness. EYES: Pupils equal round and reactive. Extraocular motions intact. No scleral icterus. No injection or drainage. ENT: Nose without bleeding, purulent drainage or septal hematoma. Throat without erythema, tonsillar hypertrophy or exudate. Uvula midline. Airway patent. NECK: Trachea midline. No JVD or lymphadenopathy. Supple, nontender, no meningeal signs. CARDIOVASCULAR: Regular rate and rhythm without murmurs, gallops, or rubs. RESPIRATORY: Clear to auscultation. Breath sounds equal bilaterally. No wheezes , rales, or rhonchi. GASTROINTESTINAL: Abdomen soft, non-tender, nondistended. No hepato-splenomegaly , or palpable masses. No guarding. MUSCULOSKELETAL: back tenderness-upper lumbar spine NEUROLOGICAL: Awake and alert. Cranial nerves II through XII intact. Motor and sensory grossly within normal limits. Five out of 5 muscle strength in all muscle groups. Normal speech. Laboratory Laboratory Tests Test 10/11/16 10/11/16 19:15 21:50 White Blood Count 14.4 Red Blood Count 4.59 Hemoglobin 13.1 Hematocrit 38.8 Mean Corpuscular Volume 84.7 Mean Corpuscular Hemoglobin 28.5 Mean Corpuscular Hemoglobin 33.7 Concent Red Cell Distribution Width 14.4 Platelet Count 257 Mean Platelet Volume 7.3 Neutrophils (%) (Auto) 84.8 Lymphocytes (%) (Auto) 10.1 Monocytes (%) (Auto) 4.8 Eosinophils (%) (Auto) 0.0 Basophils (%) (Auto) 0.3 Neutrophils # (Auto) 12.2 Lymphocytes # (Auto) 1.5 Monocytes # (Auto) 0.7 Eosinophils # (Auto) 0.0 Basophils # (Auto) 0.0 CBC Comment DIFF FINAL Differential Comment Prothrombin Time 29.1 Prothromb Time International 2.5 Ratio Activated Partial 38.0 Thromboplast Time Sodium Level 137 Potassium Level 4.6 Chloride Level 103 Carbon Dioxide Level 25.6 Anion Gap 8 Blood Urea Nitrogen 20 Creatinine 0.89 Estimat Glomerular Filtration 82 Rate Random Glucose 130 Calcium Level 9.0 Urine Color YELLOW Urine Turbidity CLEAR Urine pH 5.0 Urine Specific [place] 1.034 Urine Protein NEG Urine Glucose (UA) NEG Urine Ketones NEG Urine Occult Blood NEG Urine Nitrite NEG Urine Bilirubin NEG Urine Urobilinogen LESS THAN 2.0 Urine Leukocyte Esterase NEG Urine RBC 6 Urine WBC 1 Urine Squamous Epithelial <1 Cells Urine Mucus FEW Microscopic Urinalysis Comment CULT NOT INDICATED Result Diagram: 10/11/16191410/11/161914 Imaging Last 24 hours Impressions Pelvis X-Ray 10/11/161853 Signed Impressions: Service Date/Time: Tuesday, October 11, 2016 19:04 - CONCLUSION: Intact pelvis. Jm Chong MD Chest X-Ray 10/11/161853 Signed Impressions: Service Date/Time: Tuesday, October 11, 2016 19:07 - CONCLUSION: Nonspecific opacification laterally of the left lung base. A CT of the chest is suggested, preferably with intravenous contrast. Please see above. Right lung is clear. Jm Chong MD Lumbar Spine CT 10/11/16 1550 Signed Impressions: Service Date/Time: Tuesday, October 11, 2016 17:24 - CONCLUSION: 1. Moderate to severe compression/burst fracture of L2 that appears acute. Mild retropulsion and mild fracture-associated spinal stenosis, slightly eccentric towards the left. No epidural hematoma. 2. Mild chronic appearing wedge deformity of T12 and L1. 3. Mild multilevel degenerative changes as above. No high-grade foraminal or spinal stenosis demonstrated. Jm Chong MD Head CT 10/11/16 0000 Signed Impressions: Service Date/Time: Tuesday, October 11, 2016 21:09 - CONCLUSION: No bleed or other acute intracranial abnormality. Jm Chong MD Chest CT 10/11/16 Signed Impressions: Service Date/Time: Tuesday, October 11, 2016 21:17 - CONCLUSION: 1. Other than trace bibasilar atelectasis, no acute abnormality demonstrated. 2. Old, healed left rib fractures with callus formation and mild deformity as well as mild, chronic pleural thickening. No acute fracture. 3. Moderate hiatal hernia. 4. Cardiomegaly and coronary artery calcification. Jm Chong MD Cervical Spine CT 10/11/16 Signed Impressions: Service Date/Time: Tuesday, October 11, 2016 21:09 - CONCLUSION: Degenerative changes of the cervical spine as above. No fracture or acute malalignment. Jm Chong MD Abdomen/Pelvis CT 10/11/16 Signed Impressions: Service Date/Time: Tuesday, October 11, 2016 21:17 - CONCLUSION: 1. No visceral organ injury or other acute abnormality within the abdomen or pelvis. 2. Acute L2 burst fracture. 3. Nodular focus posteriorly of the urinary bladder. This is nonspecific. Patient has had previous prostatectomy and a localized area of mildly masslike scarring possible. True mass not excludable by the CT appearance. Direct visualization with cystoscopy recommended when clinically feasible. 4. Bilateral inguinal hernias containing fat and the appendix on the right and containing fat only on the left. No acute complication demonstrated. Jm Chong MD Assessment and Plan Assessment and Plan L2 burst fx neuro intact no other injuries inr 2.5 -coumadin admit to ICU NS on boards MRI L spine pending spinal precautions Pati Berumen MD Oct 11, 2016 22:27
[2016-10-11] MEDS: SODIUM CHLORIDE 0.9% FLUSH 10 ML FLUSH IV FLUSH SCH (22:28)
--- NOTE | 2016-10-11 22:58 | RADRPT ---
EXAM DATE/TIME: 10/11/2016 22:04 [facility] COMPARISON: CT LUMBAR SPINE W/O CONTRAST, October 11, 2016, 17:24. INDICATIONS : Pain. Fell from ladder today, abnormal CT results. MEDICAL HISTORY : Carcinoma, prostate. Diabetes mellitus type 2. Hypertension. Sleep Apnea, Afib, High Cholesterol SURGICAL HISTORY : Prostatectomy. ENCOUNTER: Initial ACUITY: 1 day PAIN SCORE: 8/10 LOCATION: Lumbar TECHNIQUE: Multiplanar multisequence MRI of the lumbar spine was performed without contrast. FINDINGS: Moderate to severe acute superior endplate compression/burst fracture seen of L2. There is about 4 mm of retropulsion contributing to mild spinal stenosis, slightly eccentric towards the left. No eviden ce of transiting nerve root impingement. There is no fracture-associated foraminal or spinal stenosis . The conus is clearly seen, terminates at the level of L1, well above the fracture. Within the theca l sac beginning at the tip of the conus and extending to approximately L2/L3 is intermediate signal i ntensity material and obscuration of the filum terminale. I believe this is related to an intrathecal hematoma. No large epidural hematoma is demonstrated.. T12-L1: The disc is desiccated and has mild loss of height. There is a small posterior disc osteophyte comple x and mild bilateral facet osteoarthritis. Slight effacement of the intra-aspect of the thecal sac wi thout conus or transiting nerve root impingement. Foramina are patent. L1-L2: There is bulging of the disc annulus and mild bilateral facet osteoarthritis without significant fora lois or spinal stenosis. A couple millimeters of degenerative retrolisthesis noted at this level. L2-L3: The disc is desiccated and has slight loss of height. There is a small, broad/diffuse disc protrusion and mild to moderate bilateral facet osteoarthritis. No significant foraminal or spinal stenosis. L3-L4: The disc is desiccated and has mild loss of height. There is a small, broad/diffuse disc protrusion a nd mild to moderate bilateral facet osteoarthritis. Mild encroachment on the lateral recesses, mainly on the left, but no transiting nerve root impingement seen. There is mild bilateral foraminal stenos is. L4-L5: The disc is desiccated and has mild loss of height. There is diffuse bulging of the disc annulus and mild to moderate bilateral facet osteoarthritis. There is mild bilateral foraminal stenosis. L5-S1: The disc is desiccated and has slight loss of height. There is a small posterior disc protrusion and mild to moderate bilateral facet osteoarthritis. Mild bilateral foraminal stenosis. CONCLUSION: 1. Moderate to severe acute compression/burst fracture superiorly of the L2 vertebral body without si gnificant fracture-associated foraminal or spinal stenosis. Very indistinct thecal sac contents from L1 to L2/L3 suggesting intradural blood. No large epidural hematoma. Conus terminus is just below T12 /L1 and above the fracture and presumed intrathecal blood. 2. Other findings are chronic/degenerative without significant foraminal or spinal stenosis. Jm Chong MD on October 11, 2016 at 22:44 Board Certified Radiologist. This report was verified electronically.
[2016-10-11] MEDS ORDERED: FUROSEMIDE 20 MG/2 ML VIAL IV ONE (23:15)
[2016-10-11] MEDS ORDERED: SODIUM CHLOR 0.9% 250 ML INJ 250 ML IV ONE (23:15)
[2016-10-11] MEDS ORDERED: POTASSIUM PHOSPHATE INJ 30 MMOL in SODIUM CHLOR 0.9% 250 ML INJ 250 ML IV PRN (23:45)
[2016-10-11] MEDS ORDERED: MAGNESIUM OXIDE 400 MG TAB PO PRN (23:45)
[2016-10-11] MEDS ORDERED: POTASSIUM CHLORIDE 25 MEQ EFFERVESCENT TAB PO PRN (23:45)
[2016-10-11] MEDS ORDERED: MAGNESIUM SULFATE INJ 2 GM in SODIUM CHLORIDE 0.9% INJ 96 ML IV PRN (23:45)
[2016-10-11] MEDS ORDERED: SODIUM PHOSPHATE INJ 30 MMOL in SODIUM CHLOR 0.9% 250 ML INJ 240 ML IV PRN (23:45)
[2016-10-11] MEDS ORDERED: POTASSIUM CHLOR 40 MEQ PREMIX 100 ML IV PRN ×2 (23:45)
[2016-10-11] MEDS ORDERED: POTASSIUM PHOSPHATE MONOBASIC 500 MG TAB PO PRN (23:45)
[2016-10-11] MEDS ORDERED: MAGNESIUM SULFATE INJ 4 GM in SODIUM CHLORIDE 0.9% INJ 92 ML IV PRN (23:45)
[2016-10-11] MEDS ORDERED: POTASSIUM CHLOR 20 MEQ PREMIX 100 ML IV PRN ×2 (23:45)
[2016-10-11] MEDS ORDERED: POTASSIUM PHOSPHATE MONOBASIC 500 MG TAB PO/TUBE PRN (23:45)
--- NOTE | 2016-10-11 23:47 | PD.CONS ---
[facility] Service Critical Care Medicine Consult Requested By Dr. Berumen Reason for Consult Critical care management following fall from ladder with L2 burst fracture Primary Care Physician Dante Manning, DO History of Present Illness 81-year-old male with past medical history of atrial fibrillation on chronic anticoagulation with warfarin, hypertension, diabetes, peripheral neuropathy, prostate cancer who states that he fell off a ladder at around 11 AM on 10/11 while he was trimming palm trees. He states that he fell forward and is uncertain exactly how he landed but developed low back pain after the fall. He laid down on the couch for several hours but to had persistent pain so presents to the emergency department for evaluation. He does have chronic numbness of his feet related to peripheral neuropathy but states he has no numbness or paresthesias beyond baseline. He was able to ambulate. He does not believe he hit his head or lost consciousness. Dr. Perez was consulted and will provided recommendations. Trauma workup including CT brain/Cspine/Chest/ abd pelvis negative for acute traumatic injury. Past Family Social History Allergies: Coded Allergies: No Known Allergies (Verified , 10/11/16) Past Medical History Atrial fibrillation on chronic N correlation with warfarin Hypertension Diabetes mellitus Hyperlipidemia Peripheral neuropathy GERD Prostate cancer probable Mild dementia He denies history of coronary artery disease or CHF though he is on Lasix and spironolactone. Past Surgical History Prostatectomy in 1999 Pilonidal cyst removal Reported Medications Lisinopril 10 mg by mouth daily at bedtime Warfarin 7 mg by mouth daily Gabapentin 100 g by mouth 3 times a day Metoprolol 25 mg by mouth twice a day Metformin 500 mg by mouth twice a day Ranitidine 150 mg by mouth twice a day Simvastatin 20 mill grams by mouth daily Lasix 40 mg by mouth daily Spironolactone 25 mg by mouth daily Potassium chloride 10 mEq by mouth daily Vitamin D one by mouth daily Family History He is not aware of any significant family medical history. Social History He lives alone. His son and [id number] live in town. He smokes cigarettes for 20 years but quit "a long time ago" Drinks alcohol occasionally Physical Exam Vital Signs Vital Signs Date Time Temp Pulse Resp B/P Pulse Ox O2 Delivery O2 Flow Rate FiO2 10/11/16 20:43 87 18 141/71 93 Room Air 10/11/16 19:47 90 18 99/55 92 Nasal Cannula 2 10/11/16 15:45 97.7 80 18 123/58 92 Physical Exam GENERAL: Very pleasant elderly male who is laying in ED stretcher. SKIN: Warm and dry. HEAD: Atraumatic. Normocephalic. EYES: Pupils equal and round. No scleral icterus. No injection or drainage. ENT: No nasal bleeding or discharge. Mucous membranes pink and moist. Dentures in place. NECK: Trachea midline. No JVD. CARDIOVASCULAR: irregular, afib on monitor, rate 70-80s. No murmurs rubs or gallops. RESPIRATORY: No accessory muscle use. Clear to auscultation. Breath sounds equal bilaterally. GASTROINTESTINAL: Abdomen soft, non-tender, nondistended. bowel sounds present. : No saddle parasthesias. MUSCULOSKELETAL: Extremities without clubbing, cyanosis, or edema. NEUROLOGICAL: Awake and alert. No obvious cranial nerve deficits. sensation decreased in feet bilaterally up to ankles. Normal sensation upper leg. No saddle parasthesias. Strength 5/5 throughout. Oriented to self, hospital, year, president. Has difficulty with memory and appears to have mild dementia; family states he is at baseline Laboratory Laboratory Tests Test 10/11/16 10/11/16 19:15 21:50 White Blood Count 14.4 Red Blood Count 4.59 Hemoglobin 13.1 Hematocrit 38.8 Mean Corpuscular Volume 84.7 Mean Corpuscular Hemoglobin 28.5 Mean Corpuscular Hemoglobin 33.7 Concent Red Cell Distribution Width 14.4 Platelet Count 257 Mean Platelet Volume 7.3 Neutrophils (%) (Auto) 84.8 Lymphocytes (%) (Auto) 10.1 Monocytes (%) (Auto) 4.8 Eosinophils (%) (Auto) 0.0 Basophils (%) (Auto) 0.3 Neutrophils # (Auto) 12.2 Lymphocytes # (Auto) 1.5 Monocytes # (Auto) 0.7 Eosinophils # (Auto) 0.0 Basophils # (Auto) 0.0 CBC Comment DIFF FINAL Differential Comment Prothrombin Time 29.1 Prothromb Time International 2.5 Ratio Activated Partial 38.0 Thromboplast Time Sodium Level 137 Potassium Level 4.6 Chloride Level 103 Carbon Dioxide Level 25.6 Anion Gap 8 Blood Urea Nitrogen 20 Creatinine 0.89 Estimat Glomerular Filtration 82 Rate Random Glucose 130 Calcium Level 9.0 Urine Color YELLOW Urine Turbidity CLEAR Urine pH 5.0 Urine Specific [place] 1.034 Urine Protein NEG Urine Glucose (UA) NEG Urine Ketones NEG Urine Occult Blood NEG Urine Nitrite NEG Urine Bilirubin NEG Urine Urobilinogen LESS THAN 2.0 Urine Leukocyte Esterase NEG Urine RBC 6 Urine WBC 1 Urine Squamous Epithelial <1 Cells Urine Mucus FEW Microscopic Urinalysis Comment CULT NOT INDICATED Result Diagram: 10/11/16191410/11/161914 Assessment and Plan Assessment and Plan NEURO: Fall from 10 foot ladder L2 burst fracture Peripheral neuropathy at baseline Probable Mild dementia CT brain 10/10no acute abnormality CT C-spine 10/10degenerative changes. No fracture CT lumbar spine 10/10 - monitor to severe compression burst fracture of L2. Mild retropulsion of fracture with spinal stenosis. No epidural hematoma. Chronic wedge deformity of T12 and L1. CT MRI lumbar4/11L2 burst fracture without factors associated spinal stenosis. Indistinct thecal sac at L1 to L3 suggest intradural blood. No large epidural hematoma. The conus terminus is at T12/L1 and is above the intrathecal blood. Continue gabapentin 100 mg by mouth 3 times a day Neurochecks every one hour, change to q2 now per discussion with Dr. Perez RESP: Nasal cannula wean as tolerated. Incentive spirometry every hour awake CV: Hypertension Hyperlipidemia Chronic atrial fibrillation on chronic and coagulation with warfarin Cardiomegaly Continue metoprolol 25 mg by mouth twice a day Continue spironolactone 25 mg by mouth daily Continue lisinopril 10 monos by mouth daily at bedtime Continue pravastatin 40 mg by mouth daily Obtain 2-D echo. Obtain baseline EKG Echo 12/16/2006 aortic insufficiency. LV function grossly normal. GI: Reducible Bilateral inguinal hernia Hiatal hernia GERD Nothing by mouth Pepcid as per below FEN/RENAL: Bourne in place. Monitor intake and output. Monitor I/O. Monitor creatinine. Replace electrolytes as indicated per ICU electrolyte replacement protocol. ID: Leukocytosis, probable leukemoid reaction due to trauma UA negative for evidence of infection Monitor for signs and symptoms of infection. HEME: History of prostate cancer status post prostatectomy Coagulopathy, warfarin-induced Hold warfarin. FFP 3 units IV. Follow with Lasix 20 mg IV and monitor respiratory status closely Follow-up INR in a.m. follow-up CBC in a.m. ENDO: Diabetes mellitus Hold metformin Low-dose insulin sliding scale at bedside glucose ac/hs PROPH: He is currently fully anticoagulated on warfarin. SCDs for DVT prophylaxis. Holding warfarin and giving FFP due to acute traumatic injury with intrathecal blood noted on MRI. Famotidine 20 mill grams by mouth twice a day. ACCESS: Peripheral IV providing adequate access at this time. Patient states he wishes for his [id number] Indu Terry to make medical decisions on his behalf if he is unable. She states she has healthcare surrogate form. Patient, son, and daughter in law updated about expected plan of care. Discussed with Dr. Berumen and Dr. Perez Full code Level III consult Mary Salas MD Oct 11, 2016 23:47
[2016-10-12] VITALS (15 sets, daily range): BP systolic 112–139; BP diastolic 58–75; PULSE 80–101; RESP 18–23; TEMP 97.9–99.1; O2SAT 90–98
[2016-10-12] MEDS ORDERED: HYDROmorphone HCL PF 1 MG/ML VIAL IVP PRN
[2016-10-12] MEDS ORDERED: MISCELLANEOUS NURSING INFORMATION XX SCH
[2016-10-12] MEDS ORDERED: SODIUM CHLORIDE 0.9% FLUSH 10 ML FLUSH IV FLUSH PRN
[2016-10-12] MEDS ORDERED: CHLORHEXIDINE GLUCONATE 2 % 1 PACK (2 CLOTHS) TOP PRN
[2016-10-12] MEDS ORDERED: ACETAMINOPHEN/HYDROcodone 325 MG/5 MG TAB PO PRN ×2
[2016-10-12] MEDS ORDERED: ONDANSETRON HCL 4 MG/2 ML VIAL IV PRN
[2016-10-12] MEDS: HYDROmorphone HCL PF 1 MG/ML VIAL IV PUSH PRN ×6 (03:09→23:41)
[2016-10-12] MEDS: ONDANSETRON HCL 4 MG/2 ML VIAL IV PRN (03:09)
[2016-10-12] MEDS ORDERED: CHLORHEXIDINE GLUCONATE 2 % 1 PACK (2 CLOTHS) TOP SCH (04:00)
[2016-10-12] MEDS: CHLORHEXIDINE GLUCONATE 2 % 1 PACK (2 CLOTHS) TOP SCH (04:00)
[2016-10-12] MEDS: INSULIN NovoLIN REGULAR SUPPLEMENTAL SCALE SQ SCH ×4 (06:46→21:00)
[2016-10-12] MEDS: SODIUM CHLOR 0.9% 1000 ML INJ 1,000 ML IV SCH ×3 (07:02→23:00)
[2016-10-12] MEDS: FUROSEMIDE 40 MG TAB PO SCH (07:55)
[2016-10-12] MEDS: METOPROLOL TARTRATE 25 MG TAB PO SCH ×2 (07:56→22:24)
[2016-10-12] MEDS: FAMOTIDINE 20 MG TAB PO SCH ×2 (07:56→22:24)
[2016-10-12] MEDS: GABAPENTIN 100 MG CAP PO SCH ×3 (07:56→17:25)
[2016-10-12] MEDS: POTASSIUM CHLORIDE 10 MEQ CONTROLLED RELEASE TAB PO SCH (07:56)
[2016-10-12] MEDS: LACTULOSE SYRUP 20 GM/30 ML CUP PO SCH (07:56)
[2016-10-12] MEDS: PRAVASTATIN SOD 40 MG TAB PO SCH (07:56)
[2016-10-12] MEDS: SPIRONOLACTONE 25 MG TAB PO SCH (07:56)
[2016-10-12] MEDS: SODIUM CHLORIDE 0.9% FLUSH 10 ML FLUSH IV FLUSH SCH ×2 (07:57→22:24)
[2016-10-12 08:36] LABS: AUTOMATED NEUTROPHIL # 8.5 TH/MM3 (1.8-7.7); BASOPHIL % 0.2 % (0.0-2.0); EOSINOPHIL # 0.1 TH/MM3 (0-0.4); EOSINOPHIL % 1.4 % (0.0-4.0); HEMATOCRIT 34.3 % (39.0-51.0); HEMO FLAGS DIFF FINAL; LYMPH % 9.6 % (9.0-44.0); MEAN CELL VOLUME 84.5 FL (80.0-100.0); MEAN CORPUSCULAR HEMOGLOBIN 28.9 PG (27.0-34.0); MEAN CORPUSCULAR HGB CONC 34.2 % (32.0-36.0); MONO % 7.6 % (0.0-8.0); NEUT % 81.2 % (16.0-70.0); PLATELET COUNT 211 TH/MM3 (150-450); RED BLOOD COUNT 4.06 MIL/MM3 (4.50-5.90); RED CELL DISTRIBUTION WIDTH 14.6 % (11.6-17.2); WHITE BLOOD COUNT 10.5 TH/MM3 (4.0-11.0)
[2016-10-12] MEDS: VITAMIN B COMPLEX/VIT C TAB PO SCH (08:51)
[2016-10-12 08:59] LABS: APTT (PATIENT) 37.2 SEC (24.3-30.1); INTERNATIONAL NORMALIZED RATIO 1.5 RATIO; PROTHROMBIN TIME - PATIENT 17.3 SEC (9.8-11.6)
[2016-10-12] MEDS ORDERED: metFORMIN HCL 500 MG TAB PO SCH (09:00)
[2016-10-12] MEDS: DOCUSATE SODIUM 100 MG CAP PO SCH ×2 (09:00→22:24)
[2016-10-12 09:18] LABS: BICARBONATE 29.2 MEQ/L (21.0-32.0); POTASSIUM 3.5 MEQ/L (3.5-5.1)
--- NOTE | 2016-10-12 12:40 | EC ---
Study Study Date:10/12/2016 STUDY CONCLUSIONS SUMMARY - Left ventricle: The cavity size was normal. Wall thickness was at the upper limits of normal. Systolic function was normal. The estimated ejection fraction was in the range of 55% to 60%. Wall motion was normal; there were no regional wall motion abnormalities. - Aortic valve: Mild regurgitation. - Mitral valve: Mild regurgitation. - Left atrium: The atrium was moderately dilated. - Right atrium: The atrium was moderately dilated. - Tricuspid valve: Mild regurgitation. - Pulmonary arteries: Systolic pressure was severely increased. PA peak pressure: 64mm Hg (S). If LV function is below 40, please consider prescribing an ACEI or ARB or document rationale for non-use. PROCEDURE DATA STUDY STATUS: Elective. Procedure: Transthoracic echocardiography. Image quality was good. Scanning was performed from the parasternal, apical, and subcostal acoustic windows. Study completion: The patient tolerated the procedure well. Transthoracic echocardiography. M-mode, complete 2D, complete spectral Doppler, and color Doppler. Patient status: Inpatient. CARDIAC ANATOMY LEFT VENTRICLE: The cavity size was normal. Wall thickness was at the upper limits of normal. Systolic function was normal. The estimated ejection fraction was in the range of 55% to 60%. Wall motion was normal; there were no regional wall motion abnormalities. AORTIC VALVE: Trileaflet; normal thickness leaflets. Doppler: Transvalvular velocity was within the normal range. There was no stenosis. Mild regurgitation. AORTA: Aortic root: The aortic root was normal in size. MITRAL VALVE: Structurally normal valve. Doppler: Transvalvular velocity was within the normal range. There was no evidence for stenosis. Mild regurgitation. Peak gradient: 3mm Hg (D). LEFT ATRIUM: The atrium was moderately dilated. RIGHT VENTRICLE: The cavity size was normal. Wall thickness was normal. PULMONIC VALVE: Doppler: Transvalvular velocity was within the normal range. There was no evidence for stenosis. No regurgitation. TRICUSPID VALVE: Structurally normal valve. Doppler: Transvalvular velocity was within the normal range. Mild regurgitation. PULMONARY ARTERY: Systolic pressure was severely increased. RIGHT ATRIUM: The atrium was moderately dilated. PERICARDIUM: There was no pericardial effusion. SYSTEMIC VEINS: Inferior vena cava: The vessel was dilated. BASIC MEASUREMENTS ADULT Normal Left ventricle LV internal dimension, ED, chordal level, 48 mm 43-52 PLAX LV internal dimension, ES, chordal level, 34.4 mm 23-38 PLAX Fractional shortening, chordal level, PLAX *28 % >29 LV posterior wall thickness, ED 8.39 mm IVS/LVPW ratio, ED *1.32 <1.3 Ventricular septum Septal thickness, ED 11.1 mm Aortic valve Leaflet separation 22 mm 15-26 Left atrium Anterior-posterior dimension 38 mm Right ventricle RV internal dimension, ED, PLAX 22.3 mm 19-38 BASIC MEASUREMENTS ADULT Normal Aortic valve Leaflet separation 22 mm 15-26 Aorta Root diameter, ED 31 mm 20-37 DOPPLER MEASUREMENTS ADULT Normal Main pulmonary artery Pressure, S *64 mm Hg =30 Mitral valve Peak E-wave velocity 84.9 cm/s Peak gradient, D 3 mm Hg Tricuspid valve Regurgitant peak velocity 383 cm/s Peak RV-RA gradient, S 59 mm Hg Maximal regurgitant velocity 383 cm/s Systemic veins Estimated CVP 5 mm Hg Right ventricle RV pressure, S *64 mm Hg <30 Pulmonic valve Acceleration time 113 ms LEGEND: Mean values are shown as u=mean value. Asterisk (*) aviles values outside specified normal range. Prepared and signed by Edward Ramirez [id number]
--- NOTE | 2016-10-12 15:56 | HHI.NSPN ---
(Kiara Luna) Note Status Status: Progress Note (Kiara Luna) Interval History Interval History This is a 81 year old male who was up a ladder trimming some trees when the ladder swayed causing him to fall. He estimates that he fell about 10 feet. He is not sure if he landed on his back or on his buttocks. Sudden onset of low back pain. No LOC. N sezire activity. No tongue bitting. No incontnence of stool or urine. He comes to the emergency department complaining of severe low back pain. His pain is located in the upper lumbar and thoracolumbar region. Severity 10/10. He describes a sharp, stabbing pain. he has numbness in his lower extremities and feet, which is chronic. CT lumbar spine showed a L2 fracture. Neurosurgical consultation was requested. 10/12: pain stable when not moving. denies new neuro complaint. MRI L spine completed. Received FFP last night as he was previously anticoagulated on Coumadin. (Kiara Luna) Labs, Micro, & Vital Signs Results Date Time Temp Pulse Resp B/P Pulse Ox O2 Delivery O2 Flow Rate FiO2 10/12/16 14:00 86 10/12/16 12:00 97.9 84 18 131/71 90 10/12/16 12:00 84 10/12/16 10:00 90 10/12/16 08:00 84 10/12/16 08:00 98.1 84 23 114/61 90 10/12/16 07:00 92 Nasal Cannula 4.00 10/12/16 06:13 94 Nasal Cannula 4.00 10/12/16 06:13 88 10/12/16 06:13 97.9 99 23 133/68 93 10/12/16 04:39 98.0 86 18 131/75 96 Nasal Cannula 2 10/12/16 04:05 97.9 84 21 137/75 95 Room Air 10/12/16 02:51 98.5 98 20 125/66 98 Nasal Cannula 2 10/12/16 01:47 98.0 93 20 139/70 94 Nasal Cannula 2 10/11/16 20:43 87 18 141/71 93 Room Air 10/11/16 19:47 90 18 99/55 92 Nasal Cannula 2 10/12/16 07:00 Intake Total 1009 ml Output Total 1400 ml Balance -391 ml Constitutional Vital Signs Date Time Temp Pulse Resp B/P Pulse Ox O2 Delivery O2 Flow Rate FiO2 10/12/16 14:00 86 10/12/16 12:00 97.9 84 18 131/71 90 10/12/16 12:00 84 10/12/16 10:00 90 10/12/16 08:00 84 10/12/16 08:00 98.1 84 23 114/61 90 10/12/16 07:00 92 Nasal Cannula 4.00 10/12/16 06:13 94 Nasal Cannula 4.00 10/12/16 06:13 88 10/12/16 06:13 97.9 99 23 133/68 93 10/12/16 04:39 98.0 86 18 131/75 96 Nasal Cannula 2 10/12/16 04:05 97.9 84 21 137/75 95 Room Air 10/12/16 02:51 98.5 98 20 125/66 98 Nasal Cannula 2 10/12/16 01:47 98.0 93 20 139/70 94 Nasal Cannula 2 10/11/16 20:43 87 18 141/71 93 Room Air 10/11/16 19:47 90 18 99/55 92 Nasal Cannula 2 10/12/16 07:00 Intake Total 1009 ml Output Total 1400 ml Balance -391 ml (Kiara Luna) Review of Systems/Exam Exam Mr. Terry is alert, awake and oriented x 3. Speech is fluent. Cranial nerve examination demonstrates the pupils equal, round, and reactive to light. Extra-ocular movements are intact. Facial motor and sensory function are normal and symmetrical. Sternocleidomastoid and trapezius muscles have normal and symmetrical strength. Other cranial nerves are intact. Neck is soft and supple. Muscle strength is 5/5 in all muscle groups of both upper extremities including deltoid, biceps, triceps, brachioradialis, wrist extension and transit bus driver. In the lower extremities, strength examination is limited with giveaway due to pain. Good strength in iliopsoas, quadriceps, hamstrings, plantar flexion, dorsiflexion, and extensor hallicus longus. Sensory examination is decreased in both feet which he reports is chronic due to neuropathy DTRs: In the lower extremities, the patellar and Achilles are 1+, bilaterally. There is a bilateral plantar flexion response. Hoffmanns sign is negative. There is no clonus or other abnormal reflexes noted. Cerebellar examination is intact to [id number] test (Kiara Luna) Medications Current Medications Current Medications Medications (Trade) Dose Ordered Sig/Rachel Route PRN Reason Start Time Stop Time Status Last Admin Dose Admin Sodium Chloride (NS 1000 ml Inj) 1,000 ml @ 100 mls/hr Q10H IV 10/11/16 21:02 10/12/16 07:02 Sodium Chloride (NS Flush) 2 ml UNSCH PRN IV FLUSH FLUSH AFTER USING IV ACCESS 10/11/16 21:15 Sodium Chloride (NS Flush) 2 ml BID IV FLUSH 10/11/16 21:15 10/12/16 07:57 Ondansetron HCl (Zofran Inj) 4 mg Q6H PRN IV NAUSEA OR VOMITING 10/11/16 21:15 10/12/16 03:09 Lactulose (Lactulose Liq) 30 ml DAILY PO 10/12/16 09:00 10/12/16 07:56 Miscellaneous Information 1 [id number] XX 10/11/16 21:15 10/11/16 22:28 Chlorhexidine Gluconate (Chlorhexidine 2% Cloth) 3 pack Taper DAILY@04 TOP 10/12/16 04:00 10/08/17 03:59 Chlorhexidine Gluconate (Chlorhexidine 2% Cloth) 3 pack UNSCH PRN [facility] 10/11/16 21:15 Hydromorphone HCl (Dilaudid Pf Inj) 0.5 mg Q3HR PRN IV PUSH PAIN SCALE 5 TO 10 10/11/16 21:15 10/12/16 05:49 Hydromorphone HCl (Dilaudid Pf Inj) 0.2 mg Q3HR PRN IV PUSH PAIN SCALE 1 TO 5 10/11/16 21:15 10/12/16 07:57 Furosemide (Lasix) 40 mg DAILY PO 10/12/16 09:00 10/12/16 07:55 Gabapentin (Neurontin) 100 mg TID PO 10/12/16 09:00 10/12/16 12:53 Lisinopril (Prinivil) 10 mg HS PO 10/12/16 21:00 Metoprolol Tartrate (Lopressor) 25 mg BID PO 10/12/16 09:00 10/12/16 07:56 Potassium Chloride (KCl) 10 meq DAILY PO 10/12/16 09:00 10/12/16 07:56 Spironolactone (Aldactone) 25 mg DAILY PO 10/12/16 09:00 10/12/16 07:56 Vitamin B Complex/ Vitamin C (Allbee C) 1 tab DAILY PO 10/12/16 09:00 10/12/16 08:51 Famotidine (Pepcid) 20 mg BID PO 10/12/16 09:00 10/12/16 07:56 Pravastatin Sodium 40 mg 40 mg DAILY PO CM 10/12/16 09:00 10/12/16 07:56 Potassium Chloride 100 ml @ 50 mls/hr Q2H PRN IV For Potassium 2.8 - 3.2 mEq/L 10/11/16 23:45 Potassium Chloride (KCl 20 Meq Premix Inj) 100 ml @ 50 mls/hr Q2H PRN IV For Potassium 2.8 - 3.2 mEq/L 10/11/16 23:45 Potassium Bicarb/ Potassium Chloride 50 meq 50 meq UNSCH PRN PO For Potassium 3.3 - 3.5 mEq/L 10/11/16 23:45 Potassium Chloride 100 ml @ 25 mls/hr UNSCH PRN IV For Potassium 3.3 - 3.5 mEq/L 10/11/16 23:45 Potassium Chloride 100 ml @ 50 mls/hr Q2H PRN IV For Potassium 3.3 - 3.5 mEq/L 10/11/16 23:45 Magnesium Sulfate/ Sodium Chloride (Magnesium Sulfate Inj/NS Inj) 100 ml @ 50 mls/hr UNSCH PRN IV For Magnesium 0.9 - 1.1 mg/dL 10/11/16 23:45 Magnesium Oxide 800 mg 800 mg UNSCH PRN PO For Magnesium 1.2 - 1.6 mg/dL 10/11/16 23:45 Magnesium Sulfate/ Sodium Chloride (Magnesium Sulfate Inj/NS Inj) 100 ml @ 50 mls/hr UNSCH PRN IV For Magnesium 1.2 - 1.6 mg/dL 10/11/16 23:45 Potassium Phosphate 2000 mg 2,000 mg Q4H PRN PO For Phosphorus < 2.5 mg/dL 10/11/16 23:45 Sodium Phosphate/ Sodium Chloride (Sodium Phosphate Inj/NS 250 ml Inj) 250 ml @ 42 mls/hr UNSCH PRN IV For Phosphorus < 2.5 mg/dL 10/11/16 23:45 Potassium Phosphate 2000 mg 2,000 mg UNSCH PRN PO/TUBE SEE LABEL COMMENTS 10/11/16 23:45 Potassium Phosphate/Sodium Chloride (Potassium Phosphate Inj/NS 250 ml Inj) 260 ml @ 42 mls/hr UNSCH PRN IV SEE LABEL COMMENTS 10/11/16 23:45 Docusate Sodium (Colace) 100 mg BID PO 10/12/16 09:00 10/12/16 09:00 Magnesium Hydroxide 30 ml 30 ml HS PO 10/12/16 21:00 Sodium Chloride (NS 1000 ml Inj) 1,000 ml @ 100 mls/hr Q10H IV 10/12/16 23:00 Chlorhexidine Gluconate (Hibiclens 4% Top Soln) 1 applic HS TOP 10/12/16 21:00 10/13/16 21:01 (Kiara Luna) Medical Decision Making MDM Remarks 81 y/o male s/p fall off ladder presents with intractable lumbar pain, CT and MRI L spine shows an acute L2 burst fracture with minimal canal retropulsion, nonfocal neurological exam history of A. Fib previously anticoagulated on Coumadin which has been held, s/ p 3 units FFP last night 10/11/16 (Kiara Luna) Plan Plan Remarks dw pt and son MRI and CT lumbar spine findings, pt has unstable L2 burst fracture, Dr. Perez recommend he undergo surgical stabilization plan OR tomorrow for ORIF L2 fx, PT, INR still elevated, Dr. Perez to defer to critical care for reversal NPO tonight keep bed rest HOB flat SCDs and TEDs for dvt prophylaxis consents in chart (Kiara Luna) Attending Statement The exam, history, and the medical decision-making described in the above note were completed with the assistance of the mid-level provider. I reviewed and agree with the findings presented. I attest that I had a [id number] encounter with the patient on the same day, and personally performed and documented my assessment and findings in the medical record. (Mj Perez MD) Kiara Luna Oct 12, 2016 15:56 Mj Perez MD Oct 15, 2016 18:26
--- NOTE | 2016-10-12 16:54 | HHI.CCPN ---
Subjective Remarks/Hospital Course 81-year-old male with past medical history of atrial fibrillation on chronic anticoagulation with warfarin, hypertension, diabetes, peripheral neuropathy, prostate cancer who states that he fell off a ladder at around 11 AM on 10/11 while he was trimming palm trees. He states that he fell forward and is uncertain exactly how he landed but developed low back pain after the fall. He laid down on the couch for several hours but to had persistent pain so presents to the emergency department for evaluation. He does have chronic numbness of his feet related to peripheral neuropathy but states he has no numbness or paresthesias beyond baseline. He was able to ambulate. He does not believe he hit his head or lost consciousness. Dr. Perez was consulted and will provided recommendations. Trauma workup including CT brain/Cspine/Chest/ abd pelvis negative for acute traumatic injury. 10/12: INR 1.5. Will treat with FFP tonight and repeat early a.m. Breathing comfortably Objective Vital Signs Date Time Temp Pulse Resp B/P Pulse Ox O2 Delivery O2 Flow Rate FiO2 10/12/16 14:00 86 10/12/16 12:00 97.9 18 131/71 90 10/12/16 07:00 Nasal Cannula 4.00 Result Diagram: 10/12/1613 10/12/16 0813 Objective Remarks GENERAL: Very pleasant elderly male. SKIN: Warm and dry. HEAD: Atraumatic. Normocephalic. ENT: No nasal bleeding or discharge. Mucous membranes pink and moist. Dentures in place. NECK: Trachea midline. CARDIOVASCULAR: irregular, afib on monitor, rate 70-80s. No murmurs rubs or gallops. No JVD. RESPIRATORY: No accessory muscle use. Clear to auscultation. Breath sounds equal bilaterally. GASTROINTESTINAL: Abdomen soft, non-tender, nondistended. bowel sounds present. MUSCULOSKELETAL: Extremities without clubbing, cyanosis, or edema. Well perfused. NEUROLOGICAL: Awake and alert. No obvious cranial nerve deficits. Sensation decreased in feet bilaterally up to ankles. Normal sensation upper leg. No saddle parasthesias. Strength 5/5 throughout. Oriented to self, hospital, year, president. Has difficulty with memory and appears to have mild dementia; family states he is at baseline A/P Assessment and Plan NEURO: Fall from 10 foot ladder L2 burst fracture Peripheral neuropathy at baseline Probable Mild dementia CT brain 4/11no acute abnormality CT C-spine 10/10degenerative changes. No fracture CT lumbar spine 10/10 - monitor to severe compression burst fracture of L2. Mild retropulsion of fracture with spinal stenosis. No epidural hematoma. Chronic wedge deformity of T12 and L1. CT MRI lumbar11L2 burst fracture without factors associated spinal stenosis. Indistinct thecal sac at L1 to L3 suggest intradural blood. No large epidural hematoma. The conus terminus is at T12/L1 and is above the intrathecal blood. Continue gabapentin 100 mg by mouth 3 times a day Neurochecks every one hour, change to q2 now per discussion with Dr. Perez RESP: Nasal cannula wean as tolerated. Incentive spirometry every hour awake CV: Hypertension Hyperlipidemia Chronic atrial fibrillation on chronic and coagulation with warfarin Cardiomegaly Continue metoprolol 25 mg by mouth twice a day Continue spironolactone 25 mg by mouth daily Continue lisinopril 10 monos by mouth daily at bedtime Continue pravastatin 40 mg by mouth daily Obtain 2-D echo. Obtain baseline EKG Echo 12/16/2006 aortic insufficiency. LV function grossly normal. GI: Reducible Bilateral inguinal hernia Hiatal hernia GERD Nothing by mouth Pepcid as per below FEN/RENAL: Bourne in place. Monitor intake and output. Monitor I/O. Monitor creatinine. Replace electrolytes as indicated per ICU electrolyte replacement protocol. ID: Leukocytosis, probable leukemoid reaction due to trauma UA negative for evidence of infection Monitor for signs and symptoms of infection. HEME: History of prostate cancer status post prostatectomy Coagulopathy, warfarin-induced Hold warfarin. FFP 3 units IV. Follow with Lasix 20 mg IV and monitor respiratory status closely Follow-up INR in a.m. follow-up CBC in a.m. ENDO: Diabetes mellitus Hold metformin Low-dose insulin sliding scale at bedside glucose ac/hs PROPH: He is currently fully anticoagulated on warfarin. SCDs for DVT prophylaxis. Holding warfarin and giving FFP due to acute traumatic injury with intrathecal blood noted on MRI. Famotidine 20 mill grams by mouth twice a day. ACCESS: Peripheral IV providing adequate access at this time. Patient states he wishes for his [id number] Indu Terry to make medical decisions on his behalf if he is unable. She states she has healthcare surrogate form. Patient, son, and daughter in law updated about expected plan of care. Discussed with Dr. Berumen and Dr. Perez Overall impression: Stable for back surgery in a.m. Will recheck coag profile. Santosh Ruiz MD Oct 12, 2016 16:54
--- NOTE | 2016-10-12 18:50 | HHI.PR ---
Subjective Remarks resting quietly moving both feet awaits surgery Objective Vital Signs Date Time Temp Pulse Resp B/P Pulse Ox O2 Delivery O2 Flow Rate FiO2 10/12/16 18:00 88 10/12/16 18:00 20 10/12/16 16:55 97.9 101 19 124/62 94 10/12/16 16:00 97.9 101 19 124/62 94 10/12/16 16:00 101 10/12/16 14:00 86 10/12/16 12:00 97.9 84 18 131/71 90 10/12/16 12:00 84 10/12/16 10:00 90 10/12/16 08:00 84 10/12/16 08:00 98.1 84 23 114/61 90 10/12/16 07:00 92 Nasal Cannula 4.00 10/12/16 06:13 94 Nasal Cannula 4.00 10/12/16 06:13 88 10/12/16 06:13 97.9 99 23 133/68 93 10/12/16 04:39 98.0 86 18 131/75 96 Nasal Cannula 2 10/12/16 04:05 97.9 84 21 137/75 95 Room Air 10/12/16 02:51 98.5 98 20 125/66 98 Nasal Cannula 2 10/12/16 01:47 98.0 93 20 139/70 94 Nasal Cannula 2 10/11/16 20:43 87 18 141/71 93 Room Air 10/11/16 19:47 90 18 99/55 92 Nasal Cannula 2 I/O 10/11/16 10/11/16 10/11/16 10/12/16 10/12/16 10/12/16 07:00 15:00 23:00 07:00 15:00 23:00 Intake Total 1009 ml 1808 ml Output Total 1400 ml 1400 ml Balance -391 ml 408 ml Intake Oral 0 ml 240 ml IV Total 1568 ml FFP 1009 ml Output Urine Total 1400 ml 1400 ml Stool Total 0 ml # Voids 1 Result Diagram: 10/12/1681210/12/16812 Imaging Last 24 hours Impressions Pelvis X-Ray 10/11/161853 Signed Impressions: Service Date/Time: Tuesday, October 11, 2016 19:04 - CONCLUSION: Intact pelvis. Jm Chong MD Chest X-Ray 10/11/161853 Signed Impressions: Service Date/Time: Tuesday, October 11, 2016 19:07 - CONCLUSION: Nonspecific opacification laterally of the left lung base. A CT of the chest is suggested, preferably with intravenous contrast. Please see above. Right lung is clear. Jm Chong MD Last 24 hours Impressions Pelvis X-Ray 10/11/161853 Signed Impressions: Service Date/Time: Tuesday, October 11, 2016 19:04 - CONCLUSION: Intact pelvis. Jm Chong MD Chest X-Ray 10/11/161853 Signed Impressions: Service Date/Time: Tuesday, October 11, 2016 19:07 - CONCLUSION: Nonspecific opacification laterally of the left lung base. A CT of the chest is suggested, preferably with intravenous contrast. Please see above. Right lung is clear. Jm Chong MD Objective Remarks CONSTITUTIONAL/GENERAL: This is an adequately nourished patient, in no apparent distress. TUBES/LINES/DRAINS: SKIN: No jaundice, rashes, or lesions. Ecchymoses on upper extremities. No wounds seen anteriorly. Skin temperature appropriate. Not diaphoretic. HEAD: Atraumatic. Normocephalic. EYES: Pupils equal and round and reactive. Extraocular motions intact. No scleral icterus. No injection or drainage. Fundi not examined. ENT: Hearing grossly normal. Nose without bleeding or purulent drainage. Throat without visible erythema, exudates, masses, or lesions. NECK: Trachea midline. Supple, nontender. No palpable thyroid enlargement or nodularity. CARDIOVASCULAR: Regular rate and rhythm without murmurs, gallops, or rubs. No JVD. Peripheral pulses symmetric. RESPIRATORY/CHEST: Symmetric, unlabored respirations..diminished in bases GASTROINTESTINAL: Abdomen soft, non-tender, nondistended. No hepato-splenomegaly , or palpable masses. No guarding. Bowel sounds present. GENITOURINARY: Without palpable bladder distension. Bourne catheter in place. MUSCULOSKELETAL: Extremities without clubbing, cyanosis, or edema. No joint tenderness or effusion noted. No calf tenderness. No mottling or clubbing. LYMPHATICS: No palpable cervical or supraclavicular adenopathy. NEUROLOGICAL: Awake and alert. Motor and sensory grossly within normal limits. Follows commands. Cognitively sharp. Moves all extremities. PSYCHIATRIC: No obvious anxiety/depression. no apparent hallucinations or other psychotic thought process. Medications and IVs Current Medications Medications (Trade) Dose Ordered Sig/Rachel Route PRN Reason Start Time Stop Time Status Last Admin Dose Admin Sodium Chloride (NS 1000 ml Inj) 1,000 ml @ 100 mls/hr Q10H IV 10/11/16 21:02 10/12/16 17:25 Sodium Chloride (NS Flush) 2 ml UNSCH PRN IV FLUSH FLUSH AFTER USING IV ACCESS 10/11/16 21:15 Sodium Chloride (NS Flush) 2 ml BID IV FLUSH 10/11/16 21:15 10/12/16 07:57 Ondansetron HCl (Zofran Inj) 4 mg Q6H PRN IV NAUSEA OR VOMITING 10/11/16 21:15 10/12/16 03:09 Lactulose (Lactulose Liq) 30 ml DAILY PO 10/12/16 09:00 10/12/16 07:56 Miscellaneous Information 1 Q361D XX 10/11/16 21:15 10/11/16 22:28 Chlorhexidine Gluconate (Chlorhexidine 2% Cloth) 3 pack Taper DAILY@04 TOP 10/12/16 04:00 10/08/17 03:59 Chlorhexidine Gluconate (Chlorhexidine 2% Cloth) 3 pack UNSCH PRN TOP HYGIENIC CARE 10/11/16 21:15 Hydromorphone HCl (Dilaudid Pf Inj) 0.5 mg Q3HR PRN IV PUSH PAIN SCALE 5 TO 10 10/11/16 21:15 10/12/16 05:49 Hydromorphone HCl (Dilaudid Pf Inj) 0.2 mg Q3HR PRN IV PUSH PAIN SCALE 1 TO 5 10/11/16 21:15 10/12/16 17:26 Furosemide (Lasix) 40 mg DAILY PO 10/12/16 09:00 10/12/16 07:55 Gabapentin (Neurontin) 100 mg TID PO 10/12/16 09:00 10/12/16 17:25 Lisinopril (Prinivil) 10 mg HS PO 10/12/16 21:00 Metoprolol Tartrate (Lopressor) 25 mg BID PO 10/12/16 09:00 10/12/16 07:56 Potassium Chloride (KCl) 10 meq DAILY PO 10/12/16 09:00 10/12/16 07:56 Spironolactone (Aldactone) 25 mg DAILY PO 10/12/16 09:00 10/12/16 07:56 Vitamin B Complex/ Vitamin C (Allbee C) 1 tab DAILY PO 10/12/16 09:00 10/12/16 08:51 Famotidine (Pepcid) 20 mg BID PO 10/12/16 09:00 10/12/16 07:56 Pravastatin Sodium 40 mg 40 mg DAILY PO CM 10/12/16 09:00 10/12/16 07:56 Potassium Chloride 100 ml @ 50 mls/hr Q2H PRN IV For Potassium 2.8 - 3.2 mEq/L 10/11/16 23:45 Potassium Chloride (KCl 20 Meq Premix Inj) 100 ml @ 50 mls/hr Q2H PRN IV For Potassium 2.8 - 3.2 mEq/L 10/11/16 23:45 Potassium Bicarb/ Potassium Chloride 50 meq 50 meq UNSCH PRN PO For Potassium 3.3 - 3.5 mEq/L 10/11/16 23:45 Potassium Chloride 100 ml @ 25 mls/hr UNSCH PRN IV For Potassium 3.3 - 3.5 mEq/L 10/11/16 23:45 Potassium Chloride 100 ml @ 50 mls/hr Q2H PRN IV For Potassium 3.3 - 3.5 mEq/L 10/11/16 23:45 Magnesium Sulfate/ Sodium Chloride (Magnesium Sulfate Inj/NS Inj) 100 ml @ 50 mls/hr UNSCH PRN IV For Magnesium 0.9 - 1.1 mg/dL 10/11/16 23:45 Magnesium Oxide 800 mg 800 mg UNSCH PRN PO For Magnesium 1.2 - 1.6 mg/dL 10/11/16 23:45 Magnesium Sulfate/ Sodium Chloride (Magnesium Sulfate Inj/NS Inj) 100 ml @ 50 mls/hr UNSCH PRN IV For Magnesium 1.2 - 1.6 mg/dL 10/11/16 23:45 Potassium Phosphate 2000 mg 2,000 mg Q4H PRN PO For Phosphorus < 2.5 mg/dL 10/11/16 23:45 Sodium Phosphate/ Sodium Chloride (Sodium Phosphate Inj/NS 250 ml Inj) 250 ml @ 42 mls/hr UNSCH PRN IV For Phosphorus < 2.5 mg/dL 10/11/16 23:45 Potassium Phosphate 2000 mg 2,000 mg UNSCH PRN PO/TUBE SEE LABEL COMMENTS 10/11/16 23:45 Potassium Phosphate/Sodium Chloride (Potassium Phosphate Inj/NS 250 ml Inj) 260 ml @ 42 mls/hr UNSCH PRN IV SEE LABEL COMMENTS 10/11/16 23:45 Docusate Sodium (Colace) 100 mg BID PO 10/12/16 09:00 10/12/16 09:00 Magnesium Hydroxide 30 ml 30 ml HS PO 10/12/16 21:00 Sodium Chloride (NS 1000 ml Inj) 1,000 ml @ 100 mls/hr Q10H IV 10/12/16 23:00 Chlorhexidine Gluconate (Hibiclens 4% Top Soln) 1 applic HS TOP 10/12/16 21:00 10/13/16 21:01 Assessment and Plan Problem List: (1) L2 vertebral fracture Status: Acute (2) Hypertension Status: Acute (3) Diabetes mellitus Status: Acute (4) A-fib Status: Chronic Plan: inr now 1.5 Assessment and Plan cxr shows questionable inflt left lung base ct recomended would wait untill lumbar spine is stabilized to asses ct anticipate orif in am Problem Qualifiers (1) L2 vertebral fracture: Qualified Code: S32.021A - Closed stable burst fracture of second lumbar vertebra, initial encounter (2) Diabetes mellitus: (3) A-fib: Qualified Code: I48.2 - Chronic atrial fibrillation Dante Manning DO Oct 12, 2016 18:50
[2016-10-12] MEDS: MAGNESIUM HYDROXIDE SUSP 30 ML CUP PO SCH (21:00)
--- NOTE | 2016-10-12 21:07 | EKG ---
Date Performed: 10/12/2016 Time Performed: 01:46:43 PTAGE: 81 years EKG: ATRIAL FIBRILLATION ST DEVIATION AND MODERATE T-WAVE ABNORMALITY, CONSIDER ANTEROLATERAL IS CHEMIA ABNORMAL ECG PREVIOUS TRACING : 06/08/2011 14.53 Compared to prior tracing no significant change DOCTOR: Choco Starr Interpretating Date/Time 10/12/2016 21:05:36
[2016-10-12] MEDS: LISINOPRIL 10 MG TAB PO SCH (22:24)
[2016-10-13] VITALS (13 sets, daily range): BP systolic 115–149; BP diastolic 59–86; PULSE 74–106; RESP 14–37; TEMP 97.7–98.7; O2SAT 87–98
[2016-10-13] MEDS: SODIUM CHLOR 0.9% 1000 ML INJ 1,000 ML IV SCH ×4 (02:00→19:00)
[2016-10-13] MEDS: HYDROmorphone HCL PF 1 MG/ML VIAL IV PUSH PRN ×2 (02:50→06:16)
[2016-10-13] MEDS: CHLORHEXIDINE GLUCONATE 4% SOLN 120 ML BTL TOP SCH ×2 (03:00→21:00)
[2016-10-13 03:35] LABS: AUTOMATED NEUTROPHIL # 6.4 TH/MM3 (1.8-7.7); BASOPHIL % 0.3 % (0.0-2.0); EOSINOPHIL # 0.3 TH/MM3 (0-0.4); EOSINOPHIL % 2.9 % (0.0-4.0); HEMO FLAGS DIFF FINAL; LYMPH % 18.3 % (9.0-44.0); LYMPHOCYTE # 1.7 TH/MM3 (1.0-4.8); MEAN CELL VOLUME 84.7 FL (80.0-100.0); MEAN CORPUSCULAR HEMOGLOBIN 29.5 PG (27.0-34.0); MEAN CORPUSCULAR HGB CONC 34.9 % (32.0-36.0); NEUT % 70.5 % (16.0-70.0); PLATELET COUNT 175 TH/MM3 (150-450); RED CELL DISTRIBUTION WIDTH 14.2 % (11.6-17.2); WHITE BLOOD COUNT 9.1 TH/MM3 (4.0-11.0)
[2016-10-13] MEDS: CHLORHEXIDINE GLUCONATE 2 % 1 PACK (2 CLOTHS) TOP SCH (03:43)
[2016-10-13 03:45] LABS: INTERNATIONAL NORMALIZED RATIO 1.4 RATIO; PROTHROMBIN TIME - PATIENT 15.9 SEC (9.8-11.6)
[2016-10-13 04:05] LABS: ALT (GPT) 18 U/L (12-78); ANION GAP 5 MEQ/L (5-15); AST (GOT) 16 U/L (15-37); BICARBONATE 31.3 MEQ/L (21.0-32.0); BLOOD UREA NITROGEN 13 MG/DL (7-18); CHLORIDE 102 MEQ/L (98-107); GLOMERULAR FILTRATION RATE 88 ML/MIN (>89); POTASSIUM 3.6 MEQ/L (3.5-5.1); SODIUM (NA) 138 MEQ/L (136-145)
[2016-10-13 04:07] LABS: ALKALINE PHOSPHATASE 74 U/L (45-117); TOTAL BILIRUBIN ADULT 0.8 MG/DL (0.2-1.0)
[2016-10-13] MEDS ORDERED: VANCOMYCIN INJ 1,000 MG in SODIUM CHLOR 0.9% 250 ML INJ 250 ML IV SCH (06:00)
[2016-10-13] MEDS ORDERED: ceFAZolin 2 GM PREMIX 50 ML IV SCH ×2 (06:00→19:00)
[2016-10-13] MEDS: INSULIN NovoLIN REGULAR SUPPLEMENTAL SCALE SQ SCH ×4 (06:18→21:51)
[2016-10-13] MEDS ORDERED: HEPARIN SODIUM - SQ 10,000 UNITS/ML VIAL ONE (07:21)
[2016-10-13] MEDS ORDERED: THROMBIN (TOPICAL) 5,000 UNIT VIAL ONE (07:21)
[2016-10-13] MEDS ORDERED: VANCOMYCIN HCL 1000 MG VIAL ONE (07:21)
[2016-10-13] MEDS ORDERED: GELFOAM SIZE 100 ONE (07:22)
[2016-10-13] MEDS ORDERED: GENTAMICIN SULFATE 80 MG/2 ML VIAL ONE (07:22)
[2016-10-13] MEDS ORDERED: BUPIVACAINE/EPINEPHRINE 0.5% PF 30 ML VIAL ONE (07:22)
[2016-10-13] MEDS ORDERED: GELATIN POWDER 1 GM PACKET ONE (07:23)
[2016-10-13] MEDS ORDERED: SODIUM CHLOR 0.9% 250 ML INJ 250 ML ONE (07:23)
[2016-10-13] MEDS ORDERED: PHYTONADIONE 10 MG/D5W 50 ML IV ONE ×2 (07:45)
[2016-10-13] MEDS: POTASSIUM CHLORIDE 10 MEQ CONTROLLED RELEASE TAB PO SCH (07:58)
[2016-10-13] MEDS: VITAMIN B COMPLEX/VIT C TAB PO SCH (07:58)
[2016-10-13] MEDS: LACTULOSE SYRUP 20 GM/30 ML CUP PO SCH ×2 (07:58→09:00)
[2016-10-13] MEDS: PRAVASTATIN SOD 40 MG TAB PO SCH (07:58)
[2016-10-13] MEDS: FUROSEMIDE 40 MG TAB PO SCH (07:59)
[2016-10-13] MEDS: SPIRONOLACTONE 25 MG TAB PO SCH (07:59)
[2016-10-13] MEDS: DOCUSATE SODIUM 100 MG CAP PO SCH ×2 (07:59→21:51)
[2016-10-13] MEDS: SODIUM CHLORIDE 0.9% FLUSH 10 ML FLUSH IV FLUSH SCH ×2 (07:59→21:00)
[2016-10-13] MEDS: GABAPENTIN 100 MG CAP PO SCH ×3 (07:59→18:00)
[2016-10-13] MEDS: METOPROLOL TARTRATE 25 MG TAB PO SCH ×2 (07:59→21:51)
[2016-10-13] MEDS: FAMOTIDINE 20 MG TAB PO SCH ×2 (07:59→21:51)
--- NOTE | 2016-10-13 11:06 | HHI.PR ---
Subjective Remarks Patient is alert and cooperative. Denies any CP or SOB. Discussed surgery scheduled for today. Objective Vital Signs Date Time Temp Pulse Resp B/P Pulse Ox O2 Delivery O2 Flow Rate FiO2 10/13/16 09:05 97.9 74 29 133/69 98 10/13/16 08:47 98.3 87 24 149/86 97 10/13/16 08:27 95 10/13/16 08:21 98 Venturi Mask 6.00 50 10/13/16 08:12 90 Nasal Cannula 6.00 Humidified 10/13/16 08:00 98.3 87 37 149/86 87 10/13/16 07:31 91 Nasal Cannula 4.00 10/13/16 07:11 23 10/13/16 06:00 90 10/13/16 04:00 80 10/13/16 04:00 98.7 80 22 115/66 96 10/13/16 02:00 84 10/13/16 00:00 98.5 88 14 128/59 94 10/13/16 00:00 88 10/12/16 22:00 99.1 96 21 112/66 93 10/12/16 22:00 96 10/12/16 21:30 99.0 88 22 113/70 96 10/12/16 20:00 94 Nasal Cannula 4.00 10/12/16 20:00 99.0 80 23 129/58 95 10/12/16 20:00 80 10/12/16 20:00 94 Nasal Cannula 4.00 10/12/16 18:00 88 10/12/16 16:55 97.9 101 19 124/62 94 10/12/16 16:00 97.9 101 19 124/62 94 10/12/16 16:00 101 10/12/16 14:00 86 10/12/16 12:00 97.9 84 18 131/71 90 10/12/16 12:00 84 I/O 10/12/16 10/12/16 10/12/16 10/13/16 10/13/16 10/13/16 07:00 15:00 23:00 07:00 15:00 23:00 Intake Total 1009 ml 1808 ml 2001 ml 678 ml Output Total 1400 ml 1400 ml 500 ml 400 ml Balance -391 ml 408 ml 1501 ml 278 ml Intake Oral 0 ml 240 ml 500 ml 0 ml IV Total 1568 ml 819 ml 678 ml FFP 1009 ml 682 ml Output Urine Total 1400 ml 1400 ml 500 ml 400 ml Stool Total 0 ml # Voids 1 # Bowel Movements 0 0 Result Diagram: 10/13/16 0320 10/13/16 0320 Imaging Last 48 hours Impressions Pelvis X-Ray 10/11/161853 Signed Impressions: Service Date/Time: Tuesday, October 11, 2016 19:04 - CONCLUSION: Intact pelvis. Jm Chong MD Chest X-Ray 10/11/161853 Signed Impressions: Service Date/Time: Tuesday, October 11, 2016 19:07 - CONCLUSION: Nonspecific opacification laterally of the left lung base. A CT of the chest is suggested, preferably with intravenous contrast. Please see above. Right lung is clear. Jm Chong MD Lumbar Spine CT 10/11/16 1550 Signed Impressions: Service Date/Time: Tuesday, October 11, 2016 17:24 - CONCLUSION: 1. Moderate to severe compression/burst fracture of L2 that appears acute. Mild retropulsion and mild fracture-associated spinal stenosis, slightly eccentric towards the left. No epidural hematoma. 2. Mild chronic appearing wedge deformity of T12 and L1. 3. Mild multilevel degenerative changes as above. No high-grade foraminal or spinal stenosis demonstrated. Jm Chong MD Objective Remarks GENERAL: Very pleasant elderly male. SKIN: Warm and dry. HEAD: Atraumatic. Normocephalic. ENT: No nasal bleeding or discharge. Mucous membranes pink and moist. Dentures in place NECK: Trachea midline. CARDIOVASCULAR: irregular, afib on monitor. No murmurs rubs or gallops. No JVD. RESPIRATORY: No accessory muscle use. Clear to auscultation. Breath sounds equal bilaterally. GASTROINTESTINAL: Abdomen soft, non-tender, nondistended. bowel sounds present. MUSCULOSKELETAL: Extremities without clubbing, cyanosis, or edema. Well perfused. NEUROLOGICAL: Awake and alert. No obvious cranial nerve deficits. Sensation decreased in feet bilaterally up to ankles. Normal sensation upper leg.Strength 5/5 throughout. Oriented to self, hospital, year, president. Has difficulty with memory and appears to have mild dementia; family states he is at baseline Medications and IVs Current Medications Medications (Trade) Dose Ordered Sig/Rachel Route Start Time Stop Time Status Last Admin (NS 1000 ml Inj) 1,000 ml @ 100 mls/hr Q10H IV 10/11/16 21:02 10/13/16 02:00 (NS Flush) 2 ml UNSCH PRN IV FLUSH 10/11/16 21:15 (NS Flush) 2 ml BID IV FLUSH 10/11/16 21:15 10/13/16 07:59 (Zofran Inj) 4 mg Q6H PRN IV 10/11/16 21:15 10/12/16 03:09 (Lactulose Liq) 30 ml DAILY PO 10/12/16 09:00 10/13/16 07:58 Miscellaneous Information 1 Q361D XX 10/11/16 21:15 10/11/16 22:28 (Chlorhexidine 2% Cloth) 3 pack Taper DAILY@04 TOP 10/12/16 04:00 10/08/17 03:59 (Chlorhexidine 2% Cloth) 3 pack UNSCH PRN TOP 10/11/16 21:15 (Dilaudid Pf Inj) 0.5 mg Q3HR PRN IV PUSH 10/11/16 21:15 10/12/16 05:49 (Dilaudid Pf Inj) 0.2 mg Q3HR PRN IV PUSH 10/11/16 21:15 10/13/16 06:16 (Lasix) 40 mg DAILY PO 10/12/16 09:00 10/13/16 07:59 (Neurontin) 100 mg TID PO 10/12/16 09:00 10/13/16 07:59 (Prinivil) 10 mg HS PO 10/12/16 21:00 10/12/16 22:24 (Lopressor) 25 mg BID PO 10/12/16 09:00 10/13/16 07:59 (KCl) 10 meq DAILY PO 10/12/16 09:00 10/13/16 07:58 (Aldactone) 25 mg DAILY PO 10/12/16 09:00 10/13/16 07:59 (Allbee C) 1 tab DAILY PO 10/12/16 09:00 10/13/16 07:58 (Pepcid) 20 mg BID PO 10/12/16 09:00 10/13/16 07:59 Pravastatin Sodium 40 mg 40 mg DAILY PO 10/12/16 09:00 10/13/16 07:58 Potassium Chloride 100 ml @ 50 mls/hr Q2H PRN IV 10/11/16 23:45 (KCl 20 Meq Premix Inj) 100 ml @ 50 mls/hr Q2H PRN IV 10/11/16 23:45 Potassium Bicarb/ Potassium Chloride 50 meq 50 meq UNSCH PRN PO 10/11/16 23:45 Potassium Chloride 100 ml @ 25 mls/hr UNSCH PRN IV 10/11/16 23:45 Potassium Chloride 100 ml @ 50 mls/hr Q2H PRN IV 10/11/16 23:45 (Magnesium Sulfate Inj/NS Inj) 100 ml @ 50 mls/hr UNSCH PRN IV 10/11/16 23:45 Magnesium Oxide 800 mg 800 mg UNSCH PRN PO 10/11/16 23:45 (Magnesium Sulfate Inj/NS Inj) 100 ml @ 50 mls/hr UNSCH PRN IV 10/11/16 23:45 Potassium Phosphate 2000 mg 2,000 mg Q4H PRN PO 10/11/16 23:45 (Sodium Phosphate Inj/NS 250 ml Inj) 250 ml @ 42 mls/hr UNSCH PRN IV 10/11/16 23:45 Potassium Phosphate 2000 mg 2,000 mg UNSCH PRN PO/TUBE 10/11/16 23:45 (Potassium Phosphate Inj/NS 250 ml Inj) 260 ml @ 42 mls/hr UNSCH PRN IV 10/11/16 23:45 (Colace) 100 mg BID PO 10/12/16 09:00 10/13/16 07:59 Magnesium Hydroxide 30 ml 30 ml HS PO 10/12/16 21:00 (NS 1000 ml Inj) 1,000 ml @ 100 mls/hr Q10H IV 10/12/16 23:00 10/13/16 08:02 (Hibiclens 4% Top Soln) 1 applic HS TOP 10/12/16 21:00 10/13/16 21:01 10/13/16 03:00 Assessment and Plan Problem List: (1) L2 vertebral fracture Status: Acute Plan: Plan for surgery today. INR is 1.4 Vitamin K and FFP given with recheck in preparation for surgery. Patient is afebrile is continued on antibiotics. (2) Diabetes mellitus Status: Chronic Plan: BS all under 150. Metformin on hold (3) Hypertension Status: Chronic Plan: Continue current treatment well controlled at 133/69 (4) A-fib Status: Chronic (5) GERD (gastroesophageal reflux disease) Status: Chronic Plan: Continue H2 shanell asymptomatic Assessment and Plan Assessment and plan discussed with Dr. Manning Problem Qualifiers (1) L2 vertebral fracture: Qualified Code: S32.021A - Closed stable burst fracture of second lumbar vertebra, initial encounter (2) Diabetes mellitus: (3) A-fib: Qualified Code: I48.2 - Chronic atrial fibrillation Ninoska Brasher Oct 13, 2016 11:06
[2016-10-13 11:36] LABS: INTERNATIONAL NORMALIZED RATIO 1.2 RATIO
[2016-10-13] MEDS ORDERED: MIDAZOLAM HCL 2 MG/2 ML VIAL ONE (11:55)
[2016-10-13] MEDS ORDERED: ACETAMINOPHEN 1000 MG/100 ML VIAL IV ONE (11:55)
[2016-10-13] MEDS ORDERED: fentaNYL CITRATE 250 MCG/5 ML AMP ONE (12:12)
--- NOTE | 2016-10-13 12:45 | OTSOAPIP ---
RECEIVED OCCUPATIONAL THERAPY ORDERS FROM SWETHA TRUJILLO. PATIENT IS CURRENTLY OFF FLOOR FOR SURGERY, UNABLE TO INITIATE EVALUATION. WILL FOLLOW UP WITH PATIENT NEXT DAY. INTERDISCIPLINARY COMMUNICATION: REVIEWED ELECTRONIC MEDICAL RECORD Therapist: Taina Sanchez OTR/L Signature on file
[2016-10-13] MEDS ORDERED: PHENYLEPH/NS 1000 MCG/10 ML SYR IV ONE (14:43)
[2016-10-13] MEDS ORDERED: ONDANSETRON HCL 4 MG/2 ML VIAL IV PUSH ONE (14:43)
[2016-10-13] MEDS ORDERED: PROPOFOL 200 MG/20 ML AMP IV ONE (14:43)
[2016-10-13] MEDS ORDERED: LACTATED RINGER'S 1000 ML INJ 1,000 ML IV ONE (14:44)
--- NOTE | 2016-10-13 16:17 | PD.OP ---
Operative Report Date of Surgery: Oct 13, 2016 Preoperative Diagnosis: L2 burst fracture Postoperative Diagnosis: L2 burst fracture Procedure: L2 laminectomy, Open reduction internal fixation of L2 fracture, T12-L4 posterolateral fusion using autologous iliac crest bone graft and demineralized bone matrix, T12 to L2 segmental instrumental fixation using transpedicular screws and rods, harvesting of iliac crest bone graft, microsurgical dissection Anesthesia: general Surgeon: Mj Perez Corduroy Cutting Supervisor(s): Paula Tellez Operation and Findings: INDICATIONS FOR THE SURGICAL PROCEDURE Mr Terry is a 81 year-old male who fell from a ladder and presented with severe mechanical back pain related to an unstable burst L2 spinal fracture. A surgical decompression with reduction of the fracture and arthrodhesis were indicated as the most appropriate treatment. The [id number] details of the procedure, indications, alternatives, risks and potential complications were fully discussed with the patient. The patient fully understood. All questions were answered. No guarantees were given. The patient voiced requesting the procedure and provided informed consents. The patient had been offered the alternative of delaying the procedure and continuing with nonsurgical management. DETAILS OF THE SURGICAL PROCEDURE Prior to the procedure,the surgical incision was marked in the preoperative surgical holding room, and the procedure, risks, and potential complications revisited with the patient. Placement of electrodes for intraoperative neurophysiological monitoring was completed. The patient was taken to the operative room, and following induction of general anesthesia, endotracheal intubation was performed. A Bourne catheter bilateral Nicolas and sequential compression devices were placed and kept throughout the procedure. The patient was carefully rolled into the prone position over a Bala table with a gell rolls. All pressure points were carefully padded with eggcrate mattress. The eyes were tapped shut after ointment was applied by the anesthesiologist to prevent corneal abrasion. A Chey hugger was placed over the expossed lower body to maintain control of the core body temperature. The electrophysiological team placed the needles and electrodes in their proper location and baseline SSEP's and motor evoked potentials were registered. The thoracic lumbar region was prepped and draped in the usual sterile fashion. A localizing X-ray was performed with the C-arm and the fracture was localized. A medial incision was outlined from the spinous process of T12 down to L4. Surgical Approach Once the patient was positioned, a localizing cross-table lateral x-ray was performed with a C-arm. Two paramedian small incisions were outlined on the skin approximately 3cm from the midline. The skin incisions were made with a # 10 blade. Small bleeders were controlled with the cautery. The dissection was then carried out into deper planes and through the thoracolumbar fascia with a Bovie. The intermuscular septum was identified and the myscles were blunted dissected along the septum. The facets and transverse process of T12 down to L4. Instrumental fixation At this point in the procedure, placement of bilateral transpedicular screws was necessary for stabilization of the spine. Initially, the entry point for the screw was selected anatomically at the junction of the facet, with the transverse process, and the pars interarticularis at L4 and L5. This was started with a Giamshetti needle followed by the use of a beatty wire. A tap was used to create the threads for the screws. Finally bilateral transpedicular screws were carefully placed bilaterally at T12 down to L4 under fluoroscopic visualization. A left side unilateral screw was placed at L2. An appropriate purchase was achieved with all screws. The position of each screw was assessed anatomically with an AP, lateral, oblique Xrays. An intraoperative scan view of the spine was then performed using the iso-centric c-arm. Each lumbar screw was then assessed electrophysiologically with a nerve stimulator. Open reduction of the fracture Once all screws were in position, the operative microscope was draped in the usual sterile fashion and brought to the field. The rest of the surgical procedure was performed using microdissection technique with the exception of the closure. Under the operative microscope, a laminectomy was performed at L2 and L3. It was necessary to drill the facet entrance to the pedicle in order to allow access to the anterior surface of the thecal sac without retraction on the spinal cord. E pidural veins were coagulated with the bipolar and incised with the microscissors. The retropulsed bone was assessed with an nerve hook. There was no significant compression of the dural sac. A shoe impactor was placed on the anterior epidural space to impact fragments into the vertebral body under fluoroscopic guidance. HARVESTING OF ILIAC CREST BONE An incision was then made over the patient's right posterior iliac crest. The fascia was carefully opened with a Bovie and the posterior iliac crest was exposed. A small cortical window was created with an osteotome. Cancellous bone was then harvested, to be used during the interbody arthrodesis and the posterolateral fusion. Once an appropriate amount of bone was obtained, the incision was irrigated with antibiotic solution and hemostasis secured by packing the iliac crest with Surgicel. The cortical window was then repositioned and secured using 0 Vicryl sutures. The incision was irrigated and the fascia was closed with interrupted 0 Vicryl sutures. The subcutaneous tissue was approximated with 3-0 Vicryl sutures. Posterolateral fusion Then, the lateral gutters of the spine, facets and transverse processes were carefully decorticated with a TPS drill in preparation for the posterior lateral fusion. The incision was thoroughly irrigated with antibiotic solution. The posterolateral fusion was performed by carefully packing the gutters of the spine T12 down to L4 with a autologous iliac crest bone graft combined with demineralized bone matrix. Completion of the Procedure The rods were brought to the field. Sequential application of the cap was achieved which allowed for further correction of the kyphosis. Final tightening of all screws was achieved with a torque wrench. The incision was thoroughly irrigated with several liters of antibiotic solution. The decompression was reassessed with an nerve hook and found to be appropriate. Seven mm Bala-Gasca drain was left on the epidural space and was then externalized through a separate stab incision. The incision was then closed in layers. 0 Vicryl with interrupted sutures were used to close the thoracolumbar fascia. The superficial fascia was closed with 0 Vicryl sutures. Three-0 Vicryl was used to close the subcutaneous tissue. The skin was closed with 4-0 running subcuticular Vicryl. Dermabond was applied to the skin. The drain was secured 3-0 nylon. At the end of the procedure the sponges, needles, and instrument counts were all correct. Estimated blood loss was 200 to 250 cc's. No complications occurred. The patient received prophylactic antibiotics. The patient was then extubated and transferred to the recovery room in stable condition. The entire procedure was performed using electrophysiological monitor of the electromyogram, evoked potential and sphincters. No intraoperative abnormalities were detected. Mj Perez MD Oct 13, 2016 16:17 Mj Perez MD Oct 13, 2016 16:17
--- NOTE | 2016-10-13 17:19 | HHI.CCPN ---
Subjective Remarks/Hospital Course 81-year-old male with past medical history of atrial fibrillation on chronic anticoagulation with warfarin, hypertension, diabetes, peripheral neuropathy, prostate cancer who states that he fell off a ladder at around 11 AM on 10/11 while he was trimming palm trees. He states that he fell forward and is uncertain exactly how he landed but developed low back pain after the fall. He laid down on the couch for several hours but to had persistent pain so presents to the emergency department for evaluation. He does have chronic numbness of his feet related to peripheral neuropathy but states he has no numbness or paresthesias beyond baseline. He was able to ambulate. He does not believe he hit his head or lost consciousness. Dr. Perez was consulted and will provided recommendations. Trauma workup including CT brain/Cspine/Chest/ abd pelvis negative for acute traumatic injury. 10/12: INR 1.5. Will treat with FFP tonight and repeat early a.m. Breathing comfortably. 10/13: Coags corrected, to OR for back repair. Objective Vital Signs Date Time Temp Pulse Resp B/P Pulse Ox O2 Delivery O2 Flow Rate FiO2 10/13/16 09:05 97.9 74 29 133/69 98 10/13/16 08:21 Venturi Mask 6.00 50 Intake and Output 10/12/16 10/12/16 10/13/16 08:00 16:00 00:00 Intake Total 1009 ml 1808 ml 2001 ml Output Total 1400 ml 1400 ml 500 ml Balance -391 ml 408 ml 1501 ml Result Diagram: 10/13/16 0320 10/13/16 0320 Objective Remarks GENERAL: Very pleasant elderly male. SKIN: Warm and dry. HEAD: Atraumatic. Normocephalic. ENT: No nasal bleeding or discharge. Mucous membranes pink and moist. Dentures in place. NECK: Trachea midline. CARDIOVASCULAR: irregular, afib on monitor, rate 70-80s. No murmurs rubs or gallops. No JVD. RESPIRATORY: No accessory muscle use. Clear to auscultation. Breath sounds equal bilaterally. GASTROINTESTINAL: Abdomen soft, non-tender, nondistended. bowel sounds present. MUSCULOSKELETAL: Extremities without clubbing, cyanosis, or edema. Well perfused. NEUROLOGICAL: Awake and alert. No obvious cranial nerve deficits. Sensation decreased in feet bilaterally up to ankles. Normal sensation upper leg. No saddle parasthesias. Strength 5/5 throughout. Oriented to self, hospital, year, president. No change in mental status. A/P Assessment and Plan NEURO: Fall from 10 foot ladder L2 burst fracture Peripheral neuropathy at baseline Probable Mild dementia CT brain 10/10no acute abnormality CT C-spine 10/10degenerative changes. No fracture CT lumbar spine 10/10 - monitor to severe compression burst fracture of L2. Mild retropulsion of fracture with spinal stenosis. No epidural hematoma. Chronic wedge deformity of T12 and L1. CT MRI lumbar4/11L2 burst fracture without factors associated spinal stenosis. Indistinct thecal sac at L1 to L3 suggest intradural blood. No large epidural hematoma. The conus terminus is at T12/L1 and is above the intrathecal blood. Continue gabapentin 100 mg by mouth 3 times a day Neurochecks every one hour, change to q2 now per discussion with Dr. Perez RESP: Nasal cannula wean as tolerated. Incentive spirometry every hour awake CV: Hypertension Hyperlipidemia Chronic atrial fibrillation on chronic and coagulation with warfarin Cardiomegaly Continue metoprolol 25 mg by mouth twice a day Continue spironolactone 25 mg by mouth daily Continue lisinopril 10 monos by mouth daily at bedtime Continue pravastatin 40 mg by mouth daily Obtain 2-D echo. Obtain baseline EKG Echo 12/16/2006 aortic insufficiency. LV function grossly normal. GI: Reducible Bilateral inguinal hernia Hiatal hernia GERD Nothing by mouth Pepcid as per below FEN/RENAL: Bourne in place. Monitor intake and output. Monitor I/O. Monitor creatinine. Replace electrolytes as indicated per ICU electrolyte replacement protocol. ID: Leukocytosis, probable leukemoid reaction due to trauma UA negative for evidence of infection Monitor for signs and symptoms of infection. HEME: History of prostate cancer status post prostatectomy Coagulopathy, warfarin-induced Hold warfarin. FFP 3 units IV. Follow with Lasix 20 mg IV and monitor respiratory status closely Follow-up INR in a.m. follow-up CBC in a.m. ENDO: Diabetes mellitus Hold metformin Low-dose insulin sliding scale at bedside glucose ac/hs PROPH: He is currently fully anticoagulated on warfarin. SCDs for DVT prophylaxis. Holding warfarin and giving FFP due to acute traumatic injury with intrathecal blood noted on MRI. Famotidine 20 mill grams by mouth twice a day. ACCESS: Peripheral IV providing adequate access at this time. Patient states he wishes for his [id number] Indu Terry to make medical decisions on his behalf if he is unable. She states she has healthcare surrogate form. Patient, son, and daughter in law updated about expected plan of care. Discussed with Dr. Berumen and Dr. Perez Overall impression: Stable for back surgery. Will recheck coag profile. Santosh Ruiz MD Oct 13, 2016 17:19
[2016-10-13] MEDS ORDERED: *morphine SULFATE 8 MG/ML PERIprocedure ONLY ONE (18:25)
[2016-10-13] MEDS ORDERED: MORPHINE SULFATE 4 MG/ML INJ IV PUSH PRN (19:00)
[2016-10-13] MEDS ORDERED: ACETAMINOPHEN 325 MG TAB PO PRN (19:00)
[2016-10-13] MEDS ORDERED: HYDROmorphone HCL PCA 6 MG/30 ML IV SCH (19:00)
[2016-10-13] MEDS ORDERED: diphenhydrAMINE HCL 50 MG/ML VIAL IV PRN (19:00)
[2016-10-13] MEDS ORDERED: NALOXONE HCL 0.4 MG/ML AMP IV PRN (19:00)
[2016-10-13] MEDS ORDERED: SODIUM CHLORIDE 0.9% FLUSH 5 ML FLUSH IVF PRN (19:00)
[2016-10-13] MEDS: NS + KCL 20 MEQ INJ 1,000 ML IV SCH (20:32)
[2016-10-13] MEDS: MORPHINE SULFATE 4 MG/ML INJ IV PUSH PRN (20:33)
--- NOTE | 2016-10-13 20:51 | RADRPT ---
EXAM DATE/TIME: 10/13/2016 13:01 [facility] COMPARISON: MRI LUMBAR SPINE W/O CONTRAST, October 11, 2016, 22:04. INDICATIONS : Orif L2 with screws and rods placement T12 to L4. MEDICAL HISTORY : Carcinoma, prostatic. Hypertension Cardiovascular disease. compression/burst fracture of L2 SURGICAL HISTORY : Prostatectomy. ENCOUNTER: Subsequent ACUITY: 2 days PAIN SCORE: Non-responsive. LOCATION: Lumbar spine. FINDINGS: 2 projection limited digital examination of the thoracolumbar junction is performed. This reveals pos terior hardware fusion from what I believe is T12 to L4 crossing a fracture deformity at L2. A single left-sided pedicle screw is present at the L2 level. Bilateral pedicle screws are present at the rem aining levels secured with parallel longitudinal bars. The hardware appears intact throughout. Alignm ent is anatomic. CONCLUSION: Satisfactory operative appearance Jm Saldivar MD on October 13, 2016 at 20:47 Board Certified Radiologist. This report was verified electronically.
[2016-10-13 20:57] LABS: HEMATOCRIT 33.6 % (39.0-51.0); MEAN CELL VOLUME 85.6 FL (80.0-100.0); MEAN CORPUSCULAR HEMOGLOBIN 28.9 PG (27.0-34.0); MEAN CORPUSCULAR HGB CONC 33.8 % (32.0-36.0); PLATELET COUNT 185 TH/MM3 (150-450); RED BLOOD COUNT 3.93 MIL/MM3 (4.50-5.90); REVIEW FLAG FINAL; WHITE BLOOD COUNT 13.2 TH/MM3 (4.0-11.0)
[2016-10-13] MEDS: SODIUM CHLORIDE 0.9% FLUSH 5 ML FLUSH IVF SCH (21:00)
[2016-10-13] MEDS: MAGNESIUM HYDROXIDE SUSP 30 ML CUP PO SCH (21:00)
[2016-10-13 21:13] LABS: BICARBONATE 26.1 MEQ/L (21.0-32.0); POTASSIUM 3.8 MEQ/L (3.5-5.1)
[2016-10-13] MEDS: ceFAZolin 2 GM PREMIX 50 ML IV SCH (21:51)
[2016-10-13] MEDS: LISINOPRIL 10 MG TAB PO SCH (21:51)
[2016-10-13] MEDS: PCA - TOTAL MG DILAUDID DELIVERED PER SHIFT SCH (22:00)
[2016-10-14] VITALS (17 sets, daily range): BP systolic 107–131; BP diastolic 72–88; PULSE 78–100; RESP 15–24; TEMP 96.9–99.5; O2SAT 93–100
[2016-10-14] MEDS: MORPHINE SULFATE 4 MG/ML INJ IV PUSH PRN ×2 (00:14→02:35)
[2016-10-14] MEDS: CHLORHEXIDINE GLUCONATE 2 % 1 PACK (2 CLOTHS) TOP SCH (04:00)
[2016-10-14] MEDS: HYDROmorphone HCL PF 1 MG/ML VIAL IV PUSH PRN (04:51)
[2016-10-14 04:53] LABS: AUTOMATED NEUTROPHIL # 8.7 TH/MM3 (1.8-7.7); BASOPHIL % 0.1 % (0.0-2.0); HEMATOCRIT 34.5 % (39.0-51.0); HEMO FLAGS DIFF FINAL; LYMPH % 6.2 % (9.0-44.0); LYMPHOCYTE # 0.6 TH/MM3 (1.0-4.8); MEAN CELL VOLUME 86.2 FL (80.0-100.0); MEAN CORPUSCULAR HEMOGLOBIN 29.3 PG (27.0-34.0); MONO % 5.2 % (0.0-8.0); NEUT % 88.5 % (16.0-70.0); PLATELET COUNT 175 TH/MM3 (150-450); WHITE BLOOD COUNT 9.9 TH/MM3 (4.0-11.0)
[2016-10-14] MEDS: NS + KCL 20 MEQ INJ 1,000 ML IV SCH ×2 (04:59→16:43)
[2016-10-14] MEDS: ceFAZolin 2 GM PREMIX 50 ML IV SCH ×2 (04:59→12:56)
[2016-10-14] MEDS: SODIUM CHLOR 0.9% 1000 ML INJ 1,000 ML IV SCH (05:00)
[2016-10-14 05:20] LABS: ALKALINE PHOSPHATASE 79 U/L (45-117); ALT (GPT) 24 U/L (12-78); ANION GAP 7 MEQ/L (5-15); AST (GOT) 71 U/L (15-37); BICARBONATE 28.9 MEQ/L (21.0-32.0); BLOOD UREA NITROGEN 16 MG/DL (7-18); CHLORIDE 103 MEQ/L (98-107); GLOMERULAR FILTRATION RATE 89 ML/MIN (>89); MAGNESIUM 2.2 MG/DL (1.5-2.5); POTASSIUM 4.6 MEQ/L (3.5-5.1); SODIUM (NA) 139 MEQ/L (136-145); TOTAL BILIRUBIN ADULT 0.7 MG/DL (0.2-1.0)
[2016-10-14] MEDS: PCA - TOTAL MG DILAUDID DELIVERED PER SHIFT SCH ×3 (06:00→22:00)
--- NOTE | 2016-10-14 06:30 | RADRPT ---
EXAM DATE/TIME: 10/14/2016 05:08 [facility] COMPARISON: CHEST SINGLE AP, October 11, 2016, 19:07. INDICATIONS : Shortness of breath, possible pulmonary disease. MEDICAL HISTORY : None. SURGICAL HISTORY : None. ENCOUNTER: Subsequent ACUITY: 4 - 6 days PAIN SCORE: Non-responsive. LOCATION: Bilateral chest FINDINGS: The cardiac silhouette is enlarged in transverse diameter. There is left lower lobe atelectasis versu s pneumonia. A small left sided effusion is present. The right lung is free of acute parenchymal opac ity. CONCLUSION: 1. The cardiac silhouette is enlarged in transverse diameter. 2. Left lower lobe atelectasis versus pneumonia. 3. There has been no significant change when compared to the prior exam. Cresencio Parekh MD on October 14, 2016 at 6:28 Board Certified Radiologist. This report was verified electronically.
[2016-10-14] MEDS: INSULIN NovoLIN REGULAR SUPPLEMENTAL SCALE SQ SCH ×4 (06:48→21:25)
[2016-10-14] MEDS: SODIUM CHLORIDE 0.9% FLUSH 5 ML FLUSH IVF SCH ×2 (08:17→20:51)
[2016-10-14] MEDS: SODIUM CHLORIDE 0.9% FLUSH 10 ML FLUSH IV FLUSH SCH ×2 (08:17→20:51)
[2016-10-14] MEDS: POTASSIUM CHLORIDE 10 MEQ CONTROLLED RELEASE TAB PO SCH (08:17)
[2016-10-14] MEDS: VITAMIN B COMPLEX/VIT C TAB PO SCH (08:18)
[2016-10-14] MEDS: METOPROLOL TARTRATE 25 MG TAB PO SCH ×2 (08:18→20:50)
[2016-10-14] MEDS: LACTULOSE SYRUP 20 GM/30 ML CUP PO SCH (08:18)
[2016-10-14] MEDS: GABAPENTIN 100 MG CAP PO SCH ×3 (08:18→16:43)
[2016-10-14] MEDS: SPIRONOLACTONE 25 MG TAB PO SCH (08:18)
[2016-10-14] MEDS: PRAVASTATIN SOD 40 MG TAB PO SCH (08:18)
[2016-10-14] MEDS: FUROSEMIDE 40 MG TAB PO SCH (08:18)
[2016-10-14] MEDS: FAMOTIDINE 20 MG TAB PO SCH ×2 (08:18→20:51)
[2016-10-14] MEDS: DOCUSATE SODIUM 100 MG CAP PO SCH ×2 (08:18→20:50)
[2016-10-14] MEDS ORDERED: PANTOPRAZOLE SODIUM 40 MG VIAL IVP SCH (09:00)
--- NOTE | 2016-10-14 12:23 | HHI.PR ---
Subjective Remarks resting quietly post op seems to be having some confusion with morphineand dilauudid Objective Vital Signs Date Time Temp Pulse Resp B/P Pulse Ox O2 Delivery O2 Flow Rate FiO2 10/14/16 10:00 92 10/14/16 08:00 99.5 98 23 128/76 97 10/14/16 08:00 97 Nasal Cannula 4.00 Humidified 10/14/16 08:00 100 10/14/16 07:39 95 Nasal Cannula 5.00 10/14/16 06:00 85 10/14/16 05:21 15 10/14/16 04:03 99 40 10/14/16 04:00 85 10/14/16 04:00 97.7 85 15 123/72 100 10/14/16 02:40 15 10/14/16 02:00 78 10/14/16 01:09 99 50 10/14/16 00:00 87 10/14/16 00:00 96.9 87 17 131/88 100 Arterial Line 10/13/16 22:00 106 10/13/16 20:00 97.7 105 18 97 122/71 10/13/16 19:20 95 50 10/13/16 19:15 95 50 10/13/16 19:15 95 15.00 100 10/13/16 19:05 98.8 108 20 101/64 98 Bi-Pap 50 10/13/16 19:00 108 20 101/64 98 Bi-Pap 50 10/13/16 19:00 97 Bi-Pap 50 10/13/16 18:45 111 20 122/77 98 Bi-Pap 50 10/13/16 18:30 99 20 112/82 96 Bi-Pap 50 10/13/16 18:15 98 20 124/63 95 Bi-Pap 50 10/13/16 18:00 106 20 142/79 97 Bi-Pap 50 10/13/16 17:45 109 20 108/66 97 Bi-Pap 50 10/13/16 17:30 100 20 98/63 97 Bi-Pap 50 10/13/16 17:27 97 50 10/13/16 17:15 102 20 116/67 94 Bi-Pap 50 10/13/16 17:11 98.1 94 20 115/66 93 Bi-Pap 50 I/O 10/13/16 10/13/16 10/13/16 10/14/1617 4/15/17 07:00 15:00 23:00 07:00 15:00 23:00 Intake Total 678 ml 5984 ml 734 ml Output Total 400 ml 275 ml 3245 ml 210 ml Balance 278 ml -275 ml 2739 ml 524 ml Intake Oral 0 ml IV Total 678 ml 1184 ml 734 ml Other 4800 ml Output Urine Total 400 ml 275 ml 1025 ml 200 ml Drainage Total 20 ml 10 ml Estimated Blood Loss 600 ml Other 1600 ml # Bowel Movements 0 0 0 Result Diagram: 10/14/16 0336 10/14/16 0336 Imaging Last 24 hours Impressions Chest X-Ray 10/14/16 0600 Signed Impressions: Service Date/Time: Friday, October 14, 2016 05:08 - CONCLUSION: 1. The cardiac silhouette is enlarged in transverse diameter. 2. Left lower lobe atelectasis versus pneumonia. 3. There has been no significant change when compared to the prior exam. Cresencio Parekh MD Procedures stabilazation of lumbar burst fx Objective Remarks CONSTITUTIONAL/GENERAL: This is an adequately nourished patient, in no apparent distress. TUBES/LINES/DRAINS: SKIN: No jaundice, rashes, or lesions. Ecchymoses on upper extremities. No wounds seen anteriorly. Skin temperature appropriate. Not diaphoretic. HEAD: Atraumatic. Normocephalic. EYES: Pupils equal and round and reactive. Extraocular motions intact. No scleral icterus. No injection or drainage. Fundi not examined. ENT: Hearing grossly normal. Nose without bleeding or purulent drainage. Throat without visible erythema, exudates, masses, or lesions. NECK: Trachea midline. Supple, nontender. No palpable thyroid enlargement or nodularity. CARDIOVASCULAR: Regular rate and rhythm without murmurs, gallops, or rubs. No JVD. Peripheral pulses symmetric. RESPIRATORY/CHEST: Symmetric, unlabored respirations..diminished in bases GASTROINTESTINAL: Abdomen soft, non-tender, nondistended. No hepato-splenomegaly , or palpable masses. No guarding. Bowel sounds present. GENITOURINARY: Without palpable bladder distension. Bourne catheter in place. MUSCULOSKELETAL: Extremities without clubbing, cyanosis, or edema. No joint tenderness or effusion noted. No calf tenderness. No mottling or clubbing.recent surgery lumbar spine LYMPHATICS: No palpable cervical or supraclavicular adenopathy. NEUROLOGICAL: Awake and alert. Motor and sensory grossly within normal limits. Follows commands. some hallucinations. Moves all extremities. PSYCHIATRIC: confused Medications and IVs Current Medications Medications (Trade) Dose Ordered Sig/Rachel Route PRN Reason Start Time Stop Time Status Last Admin Dose Admin Sodium Chloride (NS Flush) 2 ml UNSCH PRN IV FLUSH FLUSH AFTER USING IV ACCESS 10/11/16 21:15 Sodium Chloride (NS Flush) 2 ml BID IV FLUSH 10/11/16 21:15 10/14/16 08:17 Ondansetron HCl (Zofran Inj) 4 mg Q6H PRN IV NAUSEA OR VOMITING 10/11/16 21:15 10/12/16 03:09 Lactulose (Lactulose Liq) 30 ml DAILY PO 10/12/16 09:00 10/14/16 08:18 Miscellaneous Information 1 [id number] XX 10/11/16 21:15 10/11/16 22:28 Chlorhexidine Gluconate (Chlorhexidine 2% Cloth) 3 pack Taper DAILY@04 TOP 10/12/16 04:00 10/08/17 03:59 10/14/16 04:00 Chlorhexidine Gluconate (Chlorhexidine 2% Cloth) 3 pack UNSCH PRN TOP HYGIENIC CARE 10/11/16 21:15 Hydromorphone HCl (Dilaudid Pf Inj) 0.5 mg Q3HR PRN IV PUSH PAIN SCALE 5 TO 10 10/11/16 21:15 10/12/16 05:49 Hydromorphone HCl (Dilaudid Pf Inj) 0.2 mg Q3HR PRN IV PUSH PAIN SCALE 1 TO 5 10/11/16 21:15 10/14/16 04:51 Furosemide (Lasix) 40 mg DAILY PO 10/12/16 09:00 10/14/16 08:18 Gabapentin (Neurontin) 100 mg TID PO 10/12/16 09:00 10/14/16 08:18 Lisinopril (Prinivil) 10 mg HS PO 10/12/16 21:00 10/13/16 21:51 Metoprolol Tartrate (Lopressor) 25 mg BID PO 10/12/16 09:00 10/14/16 08:18 Potassium Chloride (KCl) 10 meq DAILY PO 10/12/16 09:00 10/14/16 08:17 Spironolactone (Aldactone) 25 mg DAILY PO 10/12/16 09:00 10/14/16 08:18 Vitamin B Complex/ Vitamin C (Allbee C) 1 tab DAILY PO 10/12/16 09:00 10/14/16 08:18 Famotidine (Pepcid) 20 mg BID PO 10/12/16 09:00 10/14/16 08:18 Pravastatin Sodium 40 mg 40 mg DAILY PO CM 10/12/16 09:00 10/14/16 08:18 Potassium Chloride 100 ml @ 50 mls/hr Q2H PRN IV For Potassium 2.8 - 3.2 mEq/L 10/11/16 23:45 Potassium Chloride (KCl 20 Meq Premix Inj) 100 ml @ 50 mls/hr Q2H PRN IV For Potassium 2.8 - 3.2 mEq/L 10/11/16 23:45 Potassium Bicarb/ Potassium Chloride 50 meq 50 meq UNSCH PRN PO For Potassium 3.3 - 3.5 mEq/L 10/11/16 23:45 Potassium Chloride 100 ml @ 25 mls/hr UNSCH PRN IV For Potassium 3.3 - 3.5 mEq/L 10/11/16 23:45 Potassium Chloride 100 ml @ 50 mls/hr Q2H PRN IV For Potassium 3.3 - 3.5 mEq/L 10/11/16 23:45 Magnesium Sulfate/ Sodium Chloride (Magnesium Sulfate Inj/NS Inj) 100 ml @ 50 mls/hr UNSCH PRN IV For Magnesium 0.9 - 1.1 mg/dL 10/11/16 23:45 Magnesium Oxide 800 mg 800 mg UNSCH PRN PO For Magnesium 1.2 - 1.6 mg/dL 10/11/16 23:45 Magnesium Sulfate/ Sodium Chloride (Magnesium Sulfate Inj/NS Inj) 100 ml @ 50 mls/hr UNSCH PRN IV For Magnesium 1.2 - 1.6 mg/dL 10/11/16 23:45 Potassium Phosphate 2000 mg 2,000 mg Q4H PRN PO For Phosphorus < 2.5 mg/dL 10/11/16 23:45 Sodium Phosphate/ Sodium Chloride (Sodium Phosphate Inj/NS 250 ml Inj) 250 ml @ 42 mls/hr UNSCH PRN IV For Phosphorus < 2.5 mg/dL 10/11/16 23:45 Potassium Phosphate 2000 mg 2,000 mg UNSCH PRN PO/TUBE SEE LABEL COMMENTS 10/11/16 23:45 Potassium Phosphate/Sodium Chloride (Potassium Phosphate Inj/NS 250 ml Inj) 260 ml @ 42 mls/hr UNSCH PRN IV SEE LABEL COMMENTS 10/11/16 23:45 Docusate Sodium (Colace) 100 mg BID PO 10/12/16 09:00 10/14/16 08:18 Magnesium Hydroxide 30 ml 30 ml HS PO 10/12/16 21:00 Potassium Chloride/Sodium Chloride (NS + KCl 20 Meq Inj) 1,000 ml @ 100 mls/hr Q10H IV 10/13/16 18:48 10/14/16 04:59 IV Flush (NS Flush) 2 ml UNSCH PRN IVF FLUSH AFTER USING IV ACCESS 10/13/16 19:00 IV Flush (NS Flush) 2 ml BID IVF 10/13/16 21:00 10/13/16 21:00 Morphine Sulfate (Morphine Inj) 2 mg Q2H PRN IV PUSH PAIN SCALE 1 TO 6 10/13/16 19:00 10/14/16 02:35 Morphine Sulfate (Morphine Inj) 4 mg Q2H PRN IV PUSH PAIN SCALE 7 TO 10 10/13/16 19:00 10/14/16 08:19 Acetaminophen (Tylenol) 650 mg Q4H PRN PO TEMPERATURE > 101.5 F 10/13/16 19:00 Naloxone HCl (Narcan Inj) 0.4 mg UNSCH PRN IV RESPIRATORY RATE LESS THAN 10 10/13/16 19:00 Diphenhydramine HCl (Benadryl Inj) 25 mg Q6H PRN IV ITCHING 10/13/16 19:00 Hydromorphone HCl (Dilaudid STRAP SEWER Inj) 6 mg UNSCH IV 10/13/16 19:00 STRAP SEWER Dosage Infused (Pha) 1 1 Q8HR .XX 10/13/16 22:00 Cefazolin Sodium/ Dextrose (Ancef 2 Gm Premix) 50 ml @ 100 mls/hr Q8H IV 10/13/16 21:00 10/14/16 13:29 10/14/16 04:59 Assessment and Plan Problem List: (1) L2 vertebral fracture Status: Acute (2) Hypertension Status: Chronic (3) Diabetes mellitus Status: Chronic (4) A-fib Status: Chronic Plan: inr now 1.5 Assessment and Plan cxr shows questionable inflt left lung base ct recomended would wait untill lumbar spine is stabilized to asses ct anticipate orif in am post op day 1 stable will add po percocet for pain and attempt to avoid MS and Dilaudid Discussed Condition With patient Problem Qualifiers (1) L2 vertebral fracture: Qualified Code: S32.021A - Closed stable burst fracture of second lumbar vertebra, initial encounter (2) Diabetes mellitus: (3) A-fib: Qualified Code: I48.2 - Chronic atrial fibrillation Dante Manning DO Oct 14, 2016 12:23
--- NOTE | 2016-10-14 12:32 | HHI.CCPN ---
Subjective Remarks/Hospital Course 81-year-old male with past medical history of atrial fibrillation on chronic anticoagulation with warfarin, hypertension, diabetes, peripheral neuropathy, prostate cancer who states that he fell off a ladder at around 11 AM on 10/11 while he was trimming palm trees. He states that he fell forward and is uncertain exactly how he landed but developed low back pain after the fall. He laid down on the couch for several hours but to had persistent pain so presents to the emergency department for evaluation. He does have chronic numbness of his feet related to peripheral neuropathy but states he has no numbness or paresthesias beyond baseline. He was able to ambulate. He does not believe he hit his head or lost consciousness. Dr. Perez was consulted and will provided recommendations. Trauma workup including CT brain/Cspine/Chest/ abd pelvis negative for acute traumatic injury. 10/12: INR 1.5. Will treat with FFP tonight and repeat early a.m. Breathing comfortably. 10/13: Coags corrected, to OR for back repair. 10/14: Extubated after back repair. Breathing comfortably this morning. CXR with small bilateral effusions and LLL atelectasis. Objective Vital Signs Date Time Temp Pulse Resp B/P Pulse Ox O2 Delivery O2 Flow Rate FiO2 10/14/16 10:00 92 10/14/16 08:00 99.5 23 128/76 97 10/14/16 08:00 Nasal Cannula 4.00 Humidified 10/14/16 04:03 40 Intake and Output 10/13/16 10/13/16 10/14/16 08:00 16:00 00:00 Intake Total 678 ml 5984 ml Output Total 400 ml 275 ml 3245 ml Balance 278 ml -275 ml 2739 ml Result Diagram: 10/14/16 0336 10/14/16 0336 Objective Remarks GENERAL: Elderly male. SKIN: Warm and dry. HEAD: Atraumatic. Normocephalic. ENT: No nasal bleeding or discharge. Mucous membranes pink and moist. Dentures in place. NECK: Trachea midline. Airway widely patent. CARDIOVASCULAR: irregular, afib on monitor, rate 70-80s. No murmurs rubs or gallops. No JVD. RESPIRATORY: Clear to auscultation. Breath sounds equal bilaterally. No wheezes opr crackles. GASTROINTESTINAL: Abdomen soft, non-tender, nondistended. bowel sounds present. MUSCULOSKELETAL: Extremities without clubbing, cyanosis, or edema. Well perfused. NEUROLOGICAL: Awake and alert. No obvious cranial nerve deficits. Sensation decreased in feet bilaterally up to ankles. Normal sensation upper leg. Strength 5/5 throughout. Oriented to self, hospital, year, president. No change in mental status. A/P Assessment and Plan NEURO: Fall from 10 foot ladder L2 burst fracture Peripheral neuropathy at baseline Probable Mild dementia CT brain 10/10no acute abnormality CT C-spine 10/10degenerative changes. No fracture CT lumbar spine 10/10 - monitor to severe compression burst fracture of L2. Mild retropulsion of fracture with spinal stenosis. No epidural hematoma. Chronic wedge deformity of T12 and L1. CT MRI lumbar4/11L2 burst fracture without factors associated spinal stenosis. Indistinct thecal sac at L1 to L3 suggest intradural blood. No large epidural hematoma. The conus terminus is at T12/L1 and is above the intrathecal blood. Continue gabapentin 100 mg by mouth 3 times a day Neurochecks every one hour, change to q2 now per discussion with Dr. Perez RESP: Nasal cannula wean as tolerated. Incentive spirometry every hour awake CV: Hypertension Hyperlipidemia Chronic atrial fibrillation on chronic and coagulation with warfarin Cardiomegaly Continue metoprolol 25 mg by mouth twice a day Continue spironolactone 25 mg by mouth daily Continue lisinopril 10 monos by mouth daily at bedtime Continue pravastatin 40 mg by mouth daily Obtain 2-D echo. Obtain baseline EKG Echo 12/16/2006 aortic insufficiency. LV function grossly normal. GI: Reducible Bilateral inguinal hernia Hiatal hernia GERD Nothing by mouth Pepcid as per below FEN/RENAL: Bourne in place. Monitor intake and output. Monitor I/O. Monitor creatinine. Replace electrolytes as indicated per ICU electrolyte replacement protocol. ID: Leukocytosis, probable leukemoid reaction due to trauma UA negative for evidence of infection Monitor for signs and symptoms of infection. HEME: History of prostate cancer status post prostatectomy Coagulopathy, warfarin-induced Hold warfarin. FFP 3 units IV. Follow with Lasix 20 mg IV and monitor respiratory status closely Follow-up INR in a.m. follow-up CBC in a.m. ENDO: Diabetes mellitus Hold metformin Low-dose insulin sliding scale at bedside glucose ac/hs PROPH: He is currently fully anticoagulated on warfarin. SCDs for DVT prophylaxis. Holding warfarin and giving FFP due to acute traumatic injury with intrathecal blood noted on MRI. Famotidine 20 mill grams by mouth twice a day. ACCESS: Peripheral IV providing adequate access at this time. Patient states he wishes for his [id number] Indu Terry to make medical decisions on his behalf if he is unable. She states she has healthcare surrogate form. Patient, son, and daughter in law updated about expected plan of care. Discussed with Dr. Berumen and Dr. Perez Overall impression: Stable hemodynamics after back surgery. Cough effort acceptable. Santosh Ruiz MD Oct 14, 2016 12:32
--- NOTE | 2016-10-14 12:55 | HHI.NSPN ---
(Kiara Luna) Note Status Status: Progress Note (Kiara Luna) Interval History Interval History This is a 81 year old male who was up a ladder trimming some trees when the ladder swayed causing him to fall. He estimates that he fell about 10 feet. He is not sure if he landed on his back or on his buttocks. Sudden onset of low back pain. No LOC. N sezire activity. No tongue bitting. No incontnence of stool or urine. He comes to the emergency department complaining of severe low back pain. His pain is located in the upper lumbar and thoracolumbar region. Severity 10/10. He describes a sharp, stabbing pain. he has numbness in his lower extremities and feet, which is chronic. CT lumbar spine showed a L2 fracture. Neurosurgical consultation was requested. 10/12: pain stable when not moving. denies new neuro complaint. MRI L spine completed. Received FFP last night as he was previously anticoagulated on Coumadin. 10/14: POD 1 s/p ORIF L2 fx, mildly confused, required CPAP last night (Kiara Luna) Labs, Micro, & Vital Signs Results Date Time Temp Pulse Resp B/P Pulse Ox O2 Delivery O2 Flow Rate FiO2 10/14/16 10:00 92 10/14/16 08:00 99.5 98 23 128/76 97 10/14/16 08:00 97 Nasal Cannula 4.00 Humidified 10/14/16 08:00 100 10/14/16 07:39 95 Nasal Cannula 5.00 10/14/16 06:00 85 10/14/16 05:21 15 10/14/16 04:03 99 40 10/14/16 04:00 85 10/14/16 04:00 97.7 85 15 123/72 100 10/14/16 02:40 15 10/14/16 02:00 78 10/14/16 01:09 99 50 10/14/16 00:00 87 10/14/16 00:00 96.9 87 17 131/88 100 Arterial Line 10/13/16 22:00 106 10/13/16 20:00 97.7 105 18 97 122/71 10/13/16 19:20 95 50 10/13/16 19:15 95 50 10/13/16 19:15 95 15.00 100 10/13/16 19:05 98.8 108 20 101/64 98 Bi-Pap 50 10/13/16 19:00 108 20 101/64 98 Bi-Pap 50 10/13/16 19:00 97 Bi-Pap 50 10/13/16 18:45 111 20 122/77 98 Bi-Pap 50 10/13/16 18:30 99 20 112/82 96 Bi-Pap 50 10/13/16 18:15 98 20 124/63 95 Bi-Pap 50 10/13/16 18:00 106 20 142/79 97 Bi-Pap 50 10/13/16 17:45 109 20 108/66 97 Bi-Pap 50 10/13/16 17:30 100 20 98/63 97 Bi-Pap 50 10/13/16 17:27 97 50 10/13/16 17:15 102 20 116/67 94 Bi-Pap 50 10/13/16 17:11 98.1 94 20 115/66 93 Bi-Pap 50 10/14/16 07:00 Intake Total 6718 ml Output Total 3730 ml Balance 2988 ml Constitutional Vital Signs Date Time Temp Pulse Resp B/P Pulse Ox O2 Delivery O2 Flow Rate FiO2 10/14/16 10:00 92 10/14/16 08:00 99.5 98 23 128/76 97 10/14/16 08:00 97 Nasal Cannula 4.00 Humidified 10/14/16 08:00 100 10/14/16 07:39 95 Nasal Cannula 5.00 10/14/16 06:00 85 10/14/16 05:21 15 10/14/16 04:03 99 40 10/14/16 04:00 85 10/14/16 04:00 97.7 85 15 123/72 100 10/14/16 02:40 15 10/14/16 02:00 78 10/14/16 01:09 99 50 10/14/16 00:00 87 10/14/16 00:00 96.9 87 17 131/88 100 Arterial Line 10/13/16 22:00 106 10/13/16 20:00 97.7 105 18 97 122/71 10/13/16 19:20 95 50 10/13/16 19:15 95 50 10/13/16 19:15 95 15.00 100 10/13/16 19:05 98.8 108 20 101/64 98 Bi-Pap 50 10/13/16 19:00 108 20 101/64 98 Bi-Pap 50 10/13/16 19:00 97 Bi-Pap 50 10/13/16 18:45 111 20 122/77 98 Bi-Pap 50 10/13/16 18:30 99 20 112/82 96 Bi-Pap 50 10/13/16 18:15 98 20 124/63 95 Bi-Pap 50 10/13/16 18:00 106 20 142/79 97 Bi-Pap 50 10/13/16 17:45 109 20 108/66 97 Bi-Pap 50 10/13/16 17:30 100 20 98/63 97 Bi-Pap 50 10/13/16 17:27 97 50 10/13/16 17:15 102 20 116/67 94 Bi-Pap 50 10/13/16 17:11 98.1 94 20 115/66 93 Bi-Pap 50 10/14/16 07:00 Intake Total 6718 ml Output Total 3730 ml Balance 2988 ml (Kiara Luna) Review of Systems/Exam Exam Mr. Terry is alert, follows simple commands. Mildly confused. Wound with dressing on, TRINIDAD drain in place. Cranial nerve examination: pupils equal, round, and reactive to light. Facial motor are normal and symmetrical. Neck is soft and supple. Motor: moves major muscle groups of lower extremities well, proximal strength limited due to surgical pain Sensory examination is decreased in both feet which he reports is chronic due to neuropathy bilateral plantar flexion response. no ankle clonus (Kiara Luna) Medications Current Medications Current Medications Medications (Trade) Dose Ordered Sig/Rachel Route PRN Reason Start Time Stop Time Status Last Admin Dose Admin Sodium Chloride (NS Flush) 2 ml UNSCH PRN IV FLUSH FLUSH AFTER USING IV ACCESS 10/11/16 21:15 Sodium Chloride (NS Flush) 2 ml BID IV FLUSH 10/11/16 21:15 10/14/16 08:17 Ondansetron HCl (Zofran Inj) 4 mg Q6H PRN IV NAUSEA OR VOMITING 10/11/16 21:15 10/12/16 03:09 Lactulose (Lactulose Liq) 30 ml DAILY PO 10/12/16 09:00 10/14/16 08:18 Miscellaneous Information 1 Q361D XX 10/11/16 21:15 10/11/16 22:28 Chlorhexidine Gluconate (Chlorhexidine 2% Cloth) 3 pack Taper DAILY@04 TOP 10/12/16 04:00 10/08/17 03:59 10/14/16 04:00 Chlorhexidine Gluconate (Chlorhexidine 2% Cloth) 3 pack UNSCH PRN TOP HYGIENIC CARE 10/11/16 21:15 Hydromorphone HCl (Dilaudid Pf Inj) 0.5 mg Q3HR PRN IV PUSH PAIN SCALE 5 TO 10 10/11/16 21:15 10/12/16 05:49 Hydromorphone HCl (Dilaudid Pf Inj) 0.2 mg Q3HR PRN IV PUSH PAIN SCALE 1 TO 5 10/11/16 21:15 10/14/16 04:51 Furosemide (Lasix) 40 mg DAILY PO 10/12/16 09:00 10/14/16 08:18 Gabapentin (Neurontin) 100 mg TID PO 10/12/16 09:00 10/14/16 08:18 Lisinopril (Prinivil) 10 mg HS PO 10/12/16 21:00 10/13/16 21:51 Metoprolol Tartrate (Lopressor) 25 mg BID PO 10/12/16 09:00 10/14/16 08:18 Potassium Chloride (KCl) 10 meq DAILY PO 10/12/16 09:00 10/14/16 08:17 Spironolactone (Aldactone) 25 mg DAILY PO 10/12/16 09:00 10/14/16 08:18 Vitamin B Complex/ Vitamin C (Allbee C) 1 tab DAILY PO 10/12/16 09:00 10/14/16 08:18 Famotidine (Pepcid) 20 mg BID PO 10/12/16 09:00 10/14/16 08:18 Pravastatin Sodium 40 mg 40 mg DAILY PO CM 10/12/16 09:00 10/14/16 08:18 Potassium Chloride 100 ml @ 50 mls/hr Q2H PRN IV For Potassium 2.8 - 3.2 mEq/L 10/11/16 23:45 Potassium Chloride (KCl 20 Meq Premix Inj) 100 ml @ 50 mls/hr Q2H PRN IV For Potassium 2.8 - 3.2 mEq/L 10/11/16 23:45 Potassium Bicarb/ Potassium Chloride 50 meq 50 meq UNSCH PRN PO For Potassium 3.3 - 3.5 mEq/L 10/11/16 23:45 Potassium Chloride 100 ml @ 25 mls/hr UNSCH PRN IV For Potassium 3.3 - 3.5 mEq/L 10/11/16 23:45 Potassium Chloride 100 ml @ 50 mls/hr Q2H PRN IV For Potassium 3.3 - 3.5 mEq/L 10/11/16 23:45 Magnesium Sulfate/ Sodium Chloride (Magnesium Sulfate Inj/NS Inj) 100 ml @ 50 mls/hr UNSCH PRN IV For Magnesium 0.9 - 1.1 mg/dL 10/11/16 23:45 Magnesium Oxide 800 mg 800 mg UNSCH PRN PO For Magnesium 1.2 - 1.6 mg/dL 10/11/16 23:45 Magnesium Sulfate/ Sodium Chloride (Magnesium Sulfate Inj/NS Inj) 100 ml @ 50 mls/hr UNSCH PRN IV For Magnesium 1.2 - 1.6 mg/dL 10/11/16 23:45 Potassium Phosphate 2000 mg 2,000 mg Q4H PRN PO For Phosphorus < 2.5 mg/dL 10/11/16 23:45 Sodium Phosphate/ Sodium Chloride (Sodium Phosphate Inj/NS 250 ml Inj) 250 ml @ 42 mls/hr UNSCH PRN IV For Phosphorus < 2.5 mg/dL 10/11/16 23:45 Potassium Phosphate 2000 mg 2,000 mg UNSCH PRN PO/TUBE SEE LABEL COMMENTS 10/11/16 23:45 Potassium Phosphate/Sodium Chloride (Potassium Phosphate Inj/NS 250 ml Inj) 260 ml @ 42 mls/hr UNSCH PRN IV SEE LABEL COMMENTS 10/11/16 23:45 Docusate Sodium (Colace) 100 mg BID PO 10/12/16 09:00 10/14/16 08:18 Magnesium Hydroxide 30 ml 30 ml HS PO 10/12/16 21:00 Potassium Chloride/Sodium Chloride (NS + KCl 20 Meq Inj) 1,000 ml @ 100 mls/hr Q10H IV 10/13/16 18:48 10/14/16 04:59 IV Flush (NS Flush) 2 ml UNSCH PRN IVF FLUSH AFTER USING IV ACCESS 10/13/16 19:00 IV Flush (NS Flush) 2 ml BID IVF 10/13/16 21:00 10/13/16 21:00 Morphine Sulfate (Morphine Inj) 2 mg Q2H PRN IV PUSH PAIN SCALE 1 TO 6 10/13/16 19:00 10/14/16 02:35 Morphine Sulfate (Morphine Inj) 4 mg Q2H PRN IV PUSH PAIN SCALE 7 TO 10 10/13/16 19:00 10/14/16 08:19 Acetaminophen (Tylenol) 650 mg Q4H PRN PO TEMPERATURE > 101.5 F 10/13/16 19:00 Naloxone HCl (Narcan Inj) 0.4 mg UNSCH PRN IV RESPIRATORY RATE LESS THAN 10 10/13/16 19:00 Diphenhydramine HCl (Benadryl Inj) 25 mg Q6H PRN IV ITCHING 10/13/16 19:00 Hydromorphone HCl (Dilaudid WEB MERCHANT Inj) 6 mg UNSCH IV 10/13/16 19:00 WEB MERCHANT Dosage Infused (Pha) 1 1 Q8HR .XX 10/13/16 22:00 Cefazolin Sodium/ Dextrose (Ancef 2 Gm Premix) 50 ml @ 100 mls/hr Q8H IV 10/13/16 21:00 10/14/16 13:29 10/14/16 04:59 Oxycodone/ Acetaminophen (Percocet 10-325 Mg) 1 tab Q4H PRN PO PAIN SCALE 1 TO 7 10/14/16 12:45 (Kiara Luna) Medical Decision Making MDM Remarks 81 y/o male s/p fall off ladder presents with intractable lumbar pain,with acute L2 burst fracture with minimal canal retropulsion, nonfocal neurological exam s/p ORIF L2 fracture with T12 to L4 posterolateral fixation 10/13/16 (Kiara Luna) Plan Plan Remarks cont pain mgt prn with IV Dilauded or oral pain medications cont neuro checks in ISC ok OOB with TLSO, ok to elevate HOB clear to start diet nonchemical dvt prophylaxis for now (Kiara Luna) Attending Statement The exam, history, and the medical decision-making described in the above note were completed with the assistance of the mid-level provider. I reviewed and agree with the findings presented. I attest that I had a [id number] encounter with the patient on the same day, and personally performed and documented my assessment and findings in the medical record. (Mj Perez MD) Kiara Luna Oct 14, 2016 12:55 Mj Perez MD Oct 14, 2016 17:21
[2016-10-14] MEDS: oxyCODONE/ACETAMINOPHEN 10 MG/325 MG TAB PO PRN ×2 (16:44→21:25)
[2016-10-14] MEDS: MAGNESIUM HYDROXIDE SUSP 30 ML CUP PO SCH (20:51)
[2016-10-14] MEDS: LISINOPRIL 10 MG TAB PO SCH (20:51)
[2016-10-15] VITALS (14 sets, daily range): BP systolic 107–137; BP diastolic 55–71; PULSE 85–103; RESP 17–25; TEMP 97.4–98.3; O2SAT 92–98
[2016-10-15] MEDS: NS + KCL 20 MEQ INJ 1,000 ML IV SCH (00:32)
[2016-10-15] MEDS: oxyCODONE/ACETAMINOPHEN 10 MG/325 MG TAB PO PRN ×4 (02:25→20:16)
[2016-10-15] MEDS: CHLORHEXIDINE GLUCONATE 2 % 1 PACK (2 CLOTHS) TOP SCH (04:00)
[2016-10-15 04:14] LABS: AUTOMATED NEUTROPHIL # 7.1 TH/MM3 (1.8-7.7); BASOPHIL % 0.2 % (0.0-2.0); EOSINOPHIL # 0.1 TH/MM3 (0-0.4); HEMATOCRIT 30.7 % (39.0-51.0); HEMO FLAGS DIFF FINAL; LYMPH % 11.3 % (9.0-44.0); MEAN CELL VOLUME 85.1 FL (80.0-100.0); MEAN CORPUSCULAR HEMOGLOBIN 29.8 PG (27.0-34.0); MEAN CORPUSCULAR HGB CONC 35.1 % (32.0-36.0); MONO % 9.6 % (0.0-8.0); NEUT % 77.9 % (16.0-70.0); PLATELET COUNT 195 TH/MM3 (150-450); RED CELL DISTRIBUTION WIDTH 14.1 % (11.6-17.2); WHITE BLOOD COUNT 9.1 TH/MM3 (4.0-11.0)
[2016-10-15 04:36] LABS: ALT (GPT) 19 U/L (12-78); ANION GAP 7 MEQ/L (5-15); AST (GOT) 66 U/L (15-37); BICARBONATE 29.5 MEQ/L (21.0-32.0); BLOOD UREA NITROGEN 21 MG/DL (7-18); CHLORIDE 107 MEQ/L (98-107); GLOMERULAR FILTRATION RATE 112 ML/MIN (>89); MAGNESIUM 2.5 MG/DL (1.5-2.5); POTASSIUM 4.2 MEQ/L (3.5-5.1); SODIUM (NA) 143 MEQ/L (136-145)
[2016-10-15 04:38] LABS: ALKALINE PHOSPHATASE 72 U/L (45-117); TOTAL BILIRUBIN ADULT 0.5 MG/DL (0.2-1.0)
[2016-10-15] MEDS: PCA - TOTAL MG DILAUDID DELIVERED PER SHIFT SCH (06:00)
[2016-10-15] MEDS: INSULIN NovoLIN REGULAR SUPPLEMENTAL SCALE SQ SCH ×4 (06:44→19:45)
--- NOTE | 2016-10-15 06:47 | HHI.PR ---
Subjective Remarks resting quietly post op some intermittant confusion questioning daughter reveals that he does have periods of forgetfulness and some frustration at home Objective Vital Signs Date Time Temp Pulse Resp B/P Pulse Ox O2 Delivery O2 Flow Rate FiO2 10/15/16 04:00 87 10/15/16 04:00 97.4 87 18 107/67 95 10/15/16 03:25 21 10/15/16 02:00 88 10/15/16 00:00 85 10/15/16 00:00 97.5 85 25 118/58 92 10/14/16 22:00 83 10/14/16 21:37 96 Nasal Cannula 3.00 10/14/16 20:00 94 10/14/16 20:00 97.6 94 21 107/72 93 10/14/16 19:00 93 Nasal Cannula 4.00 Humidified 10/14/16 18:14 85 10/14/16 16:25 90 10/14/16 16:00 97.9 90 24 107/73 94 10/14/16 14:00 90 10/14/16 12:00 97.9 82 22 122/72 94 10/14/16 12:00 82 10/14/16 10:00 92 10/14/16 08:00 99.5 98 23 128/76 97 10/14/16 08:00 97 Nasal Cannula 4.00 Humidified 10/14/16 08:00 100 10/14/16 07:39 95 Nasal Cannula 5.00 I/O 10/14/16 10/14/16 10/14/16 10/15/16 10/15/16 10/15/16 07:00 15:00 23:00 07:00 15:00 23:00 Intake Total 734 ml 992 ml 1070 ml Output Total 210 ml 501 ml 300 ml Balance 524 ml 491 ml 770 ml Intake Oral 240 ml 240 ml IV Total 734 ml 752 ml 830 ml Output Urine Total 200 ml 500 ml 300 ml Drainage Total 10 ml 1 ml # Bowel Movements 0 0 0 Result Diagram: 10/15/16 0330 10/15/16 0330 Procedures stabilazation of lumbar burst fx Objective Remarks CONSTITUTIONAL/GENERAL: This is an adequately nourished patient, in no apparent distress. TUBES/LINES/DRAINS: SKIN: No jaundice, rashes, or lesions. Ecchymoses on upper extremities. No wounds seen anteriorly. Skin temperature appropriate. Not diaphoretic. HEAD: Atraumatic. Normocephalic. EYES: Pupils equal and round and reactive. Extraocular motions intact. No scleral icterus. No injection or drainage. Fundi not examined. ENT: Hearing grossly normal. Nose without bleeding or purulent drainage. Throat without visible erythema, exudates, masses, or lesions. NECK: Trachea midline. Supple, nontender. No palpable thyroid enlargement or nodularity. CARDIOVASCULAR: Regular rate and rhythm without murmurs, gallops, or rubs. No JVD. Peripheral pulses symmetric. RESPIRATORY/CHEST: Symmetric, unlabored respirations..diminished in bases GASTROINTESTINAL: Abdomen soft, non-tender, nondistended. No hepato-splenomegaly , or palpable masses. No guarding. Bowel sounds present. GENITOURINARY: Without palpable bladder distension. Bourne catheter in place. MUSCULOSKELETAL: Extremities without clubbing, cyanosis, or edema. No joint tenderness or effusion noted. No calf tenderness. No mottling or clubbing.recent surgery lumbar spine LYMPHATICS: No palpable cervical or supraclavicular adenopathy. NEUROLOGICAL: Awake and alert. Motor and sensory grossly within normal limits. Follows commands. some hallucinations. Moves all extremities. PSYCHIATRIC: confused Medications and IVs Current Medications Medications (Trade) Dose Ordered Sig/Rachel Route PRN Reason Start Time Stop Time Status Last Admin Dose Admin Sodium Chloride (NS Flush) 2 ml UNSCH PRN IV FLUSH FLUSH AFTER USING IV ACCESS 10/11/16 21:15 Sodium Chloride (NS Flush) 2 ml BID IV FLUSH 10/11/16 21:15 10/14/16 20:51 Ondansetron HCl (Zofran Inj) 4 mg Q6H PRN IV NAUSEA OR VOMITING 10/11/16 21:15 10/12/16 03:09 Lactulose (Lactulose Liq) 30 ml DAILY PO 10/12/16 09:00 10/14/16 08:18 Miscellaneous Information 1 Q361D XX 10/11/16 21:15 10/11/16 22:28 Chlorhexidine Gluconate (Chlorhexidine 2% Cloth) 3 pack Taper DAILY@04 TOP 10/12/16 04:00 10/08/17 03:59 10/15/16 04:00 Chlorhexidine Gluconate (Chlorhexidine 2% Cloth) 3 pack UNSCH PRN TOP HYGIENIC CARE 10/11/16 21:15 Hydromorphone HCl (Dilaudid Pf Inj) 0.5 mg Q3HR PRN IV PUSH PAIN SCALE 5 TO 10 10/11/16 21:15 10/12/16 05:49 Hydromorphone HCl (Dilaudid Pf Inj) 0.2 mg Q3HR PRN IV PUSH PAIN SCALE 1 TO 5 10/11/16 21:15 10/14/16 04:51 Furosemide (Lasix) 40 mg DAILY PO 10/12/16 09:00 10/14/16 08:18 Gabapentin (Neurontin) 100 mg TID PO 10/12/16 09:00 10/14/16 16:43 Lisinopril (Prinivil) 10 mg HS PO 10/12/16 21:00 10/14/16 20:51 Metoprolol Tartrate (Lopressor) 25 mg BID PO 10/12/16 09:00 10/14/16 20:50 Potassium Chloride (KCl) 10 meq DAILY PO 10/12/16 09:00 10/14/16 08:17 Spironolactone (Aldactone) 25 mg DAILY PO 10/12/16 09:00 10/14/16 08:18 Vitamin B Complex/ Vitamin C (Allbee C) 1 tab DAILY PO 10/12/16 09:00 10/14/16 08:18 Famotidine (Pepcid) 20 mg BID PO 10/12/16 09:00 10/14/16 20:51 Pravastatin Sodium 40 mg 40 mg DAILY PO CM 10/12/16 09:00 10/14/16 08:18 Potassium Chloride 100 ml @ 50 mls/hr Q2H PRN IV For Potassium 2.8 - 3.2 mEq/L 10/11/16 23:45 Potassium Chloride (KCl 20 Meq Premix Inj) 100 ml @ 50 mls/hr Q2H PRN IV For Potassium 2.8 - 3.2 mEq/L 10/11/16 23:45 Potassium Bicarb/ Potassium Chloride 50 meq 50 meq UNSCH PRN PO For Potassium 3.3 - 3.5 mEq/L 10/11/16 23:45 Potassium Chloride 100 ml @ 25 mls/hr UNSCH PRN IV For Potassium 3.3 - 3.5 mEq/L 10/11/16 23:45 Potassium Chloride 100 ml @ 50 mls/hr Q2H PRN IV For Potassium 3.3 - 3.5 mEq/L 10/11/16 23:45 Magnesium Sulfate/ Sodium Chloride (Magnesium Sulfate Inj/NS Inj) 100 ml @ 50 mls/hr UNSCH PRN IV For Magnesium 0.9 - 1.1 mg/dL 10/11/16 23:45 Magnesium Oxide 800 mg 800 mg UNSCH PRN PO For Magnesium 1.2 - 1.6 mg/dL 10/11/16 23:45 Magnesium Sulfate/ Sodium Chloride (Magnesium Sulfate Inj/NS Inj) 100 ml @ 50 mls/hr UNSCH PRN IV For Magnesium 1.2 - 1.6 mg/dL 10/11/16 23:45 Potassium Phosphate 2000 mg 2,000 mg Q4H PRN PO For Phosphorus < 2.5 mg/dL 10/11/16 23:45 Sodium Phosphate/ Sodium Chloride (Sodium Phosphate Inj/NS 250 ml Inj) 250 ml @ 42 mls/hr UNSCH PRN IV For Phosphorus < 2.5 mg/dL 10/11/16 23:45 Potassium Phosphate 2000 mg 2,000 mg UNSCH PRN PO/TUBE SEE LABEL COMMENTS 10/11/16 23:45 Potassium Phosphate/Sodium Chloride (Potassium Phosphate Inj/NS 250 ml Inj) 260 ml @ 42 mls/hr UNSCH PRN IV SEE LABEL COMMENTS 10/11/16 23:45 Docusate Sodium (Colace) 100 mg BID PO 10/12/16 09:00 10/14/16 20:50 Magnesium Hydroxide 30 ml 30 ml HS PO 10/12/16 21:00 10/14/16 20:51 Potassium Chloride/Sodium Chloride (NS + KCl 20 Meq Inj) 1,000 ml @ 100 mls/hr Q10H IV 10/13/16 18:48 10/15/16 00:32 IV Flush (NS Flush) 2 ml UNSCH PRN IVF FLUSH AFTER USING IV ACCESS 10/13/16 19:00 IV Flush (NS Flush) 2 ml BID IVF 10/13/16 21:00 10/14/16 20:51 Morphine Sulfate (Morphine Inj) 2 mg Q2H PRN IV PUSH PAIN SCALE 1 TO 6 10/13/16 19:00 10/14/16 02:35 Morphine Sulfate (Morphine Inj) 4 mg Q2H PRN IV PUSH PAIN SCALE 7 TO 10 10/13/16 19:00 10/14/16 08:19 Acetaminophen (Tylenol) 650 mg Q4H PRN PO TEMPERATURE > 101.5 F 10/13/16 19:00 Naloxone HCl (Narcan Inj) 0.4 mg UNSCH PRN IV RESPIRATORY RATE LESS THAN 10 10/13/16 19:00 Diphenhydramine HCl (Benadryl Inj) 25 mg Q6H PRN IV ITCHING 10/13/16 19:00 Hydromorphone HCl (Dilaudid DROP FORGE OPERATOR Inj) 6 mg UNSCH IV 10/13/16 19:00 DROP FORGE OPERATOR Dosage Infused (Pha) 1 Q8HR .XX 10/13/16 22:00 Oxycodone/ Acetaminophen (Percocet 10-325 Mg) 1 tab Q4H PRN PO PAIN SCALE 1 TO 7 10/14/16 12:45 10/15/16 02:25 Assessment and Plan Problem List: (1) L2 vertebral fracture Status: Acute (2) Hypertension Status: Chronic (3) Diabetes mellitus Status: Chronic (4) A-fib Status: Chronic Plan: inr now 1.5 Assessment and Plan cxr shows questionable inflt left lung base ct recomended would wait untill lumbar spine is stabilized to asses ct anticipate orif in am post op day 1 stable will add po percocet for pain and attempt to avoid MS and Dilaudid post op day 2 some confusion morphine and dilaudid minimized will follow may be early dementia as he does have some problems at home prior to this fall Problem Qualifiers (1) L2 vertebral fracture: Qualified Code: S32.021A - Closed stable burst fracture of second lumbar vertebra, initial encounter (2) Diabetes mellitus: (3) A-fib: Qualified Code: I48.2 - Chronic atrial fibrillation Dante Manning DO Oct 15, 2016 06:47
[2016-10-15] MEDS: FUROSEMIDE 40 MG TAB PO SCH (08:25)
[2016-10-15] MEDS: FAMOTIDINE 20 MG TAB PO SCH ×2 (08:25→20:16)
[2016-10-15] MEDS: DOCUSATE SODIUM 100 MG CAP PO SCH ×2 (08:25→20:16)
[2016-10-15] MEDS: GABAPENTIN 100 MG CAP PO SCH ×3 (08:25→18:15)
[2016-10-15] MEDS: POTASSIUM CHLORIDE 10 MEQ CONTROLLED RELEASE TAB PO SCH (08:25)
[2016-10-15] MEDS: VITAMIN B COMPLEX/VIT C TAB PO SCH (08:26)
[2016-10-15] MEDS: LACTULOSE SYRUP 20 GM/30 ML CUP PO SCH (08:26)
[2016-10-15] MEDS: PRAVASTATIN SOD 40 MG TAB PO SCH (08:26)
[2016-10-15] MEDS: SPIRONOLACTONE 25 MG TAB PO SCH (08:26)
[2016-10-15] MEDS: METOPROLOL TARTRATE 25 MG TAB PO SCH ×2 (08:26→20:16)
[2016-10-15] MEDS ORDERED: BISACODYL 10 MG SUPP RECTAL ONE (08:45)
[2016-10-15] MEDS ORDERED: BISACODYL EC 5 MG TABEC PO ONE (08:45)
[2016-10-15] MEDS: SODIUM CHLORIDE 0.9% FLUSH 5 ML FLUSH IVF SCH ×2 (09:00→20:16)
[2016-10-15] MEDS: SODIUM CHLORIDE 0.9% FLUSH 10 ML FLUSH IV FLUSH SCH ×6 (09:39→20:16)
--- NOTE | 2016-10-15 12:02 | HHI.NSPN ---
(Kiara Luna) Note Status Status: Progress Note (Kiara Luna) Interval History Interval History This is a 81 year old male who was up a ladder trimming some trees when the ladder swayed causing him to fall. He estimates that he fell about 10 feet. He is not sure if he landed on his back or on his buttocks. Sudden onset of low back pain. No LOC. N sezire activity. No tongue bitting. No incontnence of stool or urine. He comes to the emergency department complaining of severe low back pain. His pain is located in the upper lumbar and thoracolumbar region. Severity 10/10. He describes a sharp, stabbing pain. he has numbness in his lower extremities and feet, which is chronic. CT lumbar spine showed a L2 fracture. Neurosurgical consultation was requested. 10/12: pain stable when not moving. denies new neuro complaint. MRI L spine completed. Received FFP last night as he was previously anticoagulated on Coumadin. 10/14: POD 1 s/p ORIF L2 fx, mildly confused, required CPAP last night 10/15: POD 2, stable confusion, coughing up phlegm daughter reports has chronic hx of phlegm in the am, lumbar pain with movement (Kiara Luna) Labs, Micro, & Vital Signs Results Date Time Temp Pulse Resp B/P Pulse Ox O2 Delivery O2 Flow Rate FiO2 10/15/16 10:00 88 10/15/16 08:18 98 Nasal Cannula 3.00 10/15/16 08:00 97.7 98 24 137/55 93 10/15/16 08:00 98 10/15/16 07:00 100 Nasal Cannula 4.00 Humidified 10/15/16 06:00 90 10/15/16 04:00 87 10/15/16 04:00 97.4 87 18 107/67 95 10/15/16 03:25 21 10/15/16 02:00 88 10/15/16 00:00 85 10/15/16 00:00 97.5 85 25 118/58 92 10/14/16 22:00 83 10/14/16 21:37 96 Nasal Cannula 3.00 10/14/16 20:00 94 10/14/16 20:00 97.6 94 21 107/72 93 10/14/16 19:00 93 Nasal Cannula 4.00 Humidified 10/14/16 18:14 85 10/14/16 16:25 90 10/14/16 16:00 97.9 90 24 107/73 94 10/14/16 14:00 90 10/14/16 12:00 97.9 82 22 122/72 94 10/14/16 12:00 82 10/15/16 07:00 Intake Total 2974 ml Output Total 1027 ml Balance 1947 ml Constitutional Vital Signs Date Time Temp Pulse Resp B/P Pulse Ox O2 Delivery O2 Flow Rate FiO2 10/15/16 10:00 88 10/15/16 08:18 98 Nasal Cannula 3.00 10/15/16 08:00 97.7 98 24 137/55 93 10/15/16 08:00 98 10/15/16 07:00 100 Nasal Cannula 4.00 Humidified 10/15/16 06:00 90 10/15/16 04:00 87 10/15/16 04:00 97.4 87 18 107/67 95 10/15/16 03:25 21 10/15/16 02:00 88 10/15/16 00:00 85 10/15/16 00:00 97.5 85 25 118/58 92 10/14/16 22:00 83 10/14/16 21:37 96 Nasal Cannula 3.00 10/14/16 20:00 94 10/14/16 20:00 97.6 94 21 107/72 93 10/14/16 19:00 93 Nasal Cannula 4.00 Humidified 10/14/16 18:14 85 10/14/16 16:25 90 10/14/16 16:00 97.9 90 24 107/73 94 10/14/16 14:00 90 10/14/16 12:00 97.9 82 22 122/72 94 10/14/16 12:00 82 10/15/16 07:00 Intake Total 2974 ml Output Total 1027 ml Balance 1947 ml (Kiara Luna) Review of Systems/Exam Exam Mr. Terry is alert, oriented to name and year, follows simple commands. Mildly confused. Wound with dressing on, TRINIDAD drain in place. Cranial nerve examination: pupils equal, round, and reactive to light. Facial motor are normal and symmetrical. Neck is soft and supple. Motor: moves major muscle groups of lower extremities well, proximal strength limited due to surgical pain Sensory examination is decreased in both feet which he reports is chronic due to neuropathy bilateral plantar flexion response. no ankle clonus (Kiara Luna) Medications Current Medications Current Medications Medications (Trade) Dose Ordered Sig/Rachel Route PRN Reason Start Time Stop Time Status Last Admin Dose Admin Sodium Chloride (NS Flush) 2 ml UNSCH PRN IV FLUSH FLUSH AFTER USING IV ACCESS 10/11/16 21:15 Sodium Chloride (NS Flush) 2 ml BID IV FLUSH 10/11/16 21:15 10/15/16 09:39 Ondansetron HCl (Zofran Inj) 4 mg Q6H PRN IV NAUSEA OR VOMITING 10/11/16 21:15 10/12/16 03:09 Lactulose (Lactulose Liq) 30 ml DAILY PO 10/12/16 09:00 10/15/16 08:26 Miscellaneous Information 1 Q361D XX 10/11/16 21:15 10/11/16 22:28 Chlorhexidine Gluconate (Chlorhexidine 2% Cloth) 3 pack Taper DAILY@04 TOP 10/12/16 04:00 10/08/17 03:59 10/15/16 04:00 Chlorhexidine Gluconate (Chlorhexidine 2% Cloth) 3 pack UNSCH PRN TOP HYGIENIC CARE 10/11/16 21:15 Hydromorphone HCl (Dilaudid Pf Inj) 0.5 mg Q3HR PRN IV PUSH PAIN SCALE 5 TO 10 10/11/16 21:15 10/12/16 05:49 Hydromorphone HCl (Dilaudid Pf Inj) 0.2 mg Q3HR PRN IV PUSH PAIN SCALE 1 TO 5 10/11/16 21:15 10/14/16 04:51 Furosemide (Lasix) 40 mg DAILY PO 10/12/16 09:00 10/15/16 08:25 Gabapentin (Neurontin) 100 mg TID PO 10/12/16 09:00 10/15/16 08:25 Lisinopril (Prinivil) 10 mg HS PO 10/12/16 21:00 10/14/16 20:51 Metoprolol Tartrate (Lopressor) 25 mg BID PO 10/12/16 09:00 10/15/16 08:26 Potassium Chloride (KCl) 10 meq DAILY PO 10/12/16 09:00 10/15/16 08:25 Spironolactone (Aldactone) 25 mg DAILY PO 10/12/16 09:00 10/15/16 08:26 Vitamin B Complex/ Vitamin C (Allbee C) 1 tab DAILY PO 10/12/16 09:00 10/15/16 08:26 Famotidine (Pepcid) 20 mg BID PO 10/12/16 09:00 10/15/16 08:25 Pravastatin Sodium 40 mg 40 mg DAILY PO CM 10/12/16 09:00 10/15/16 08:26 Potassium Chloride 100 ml @ 50 mls/hr Q2H PRN IV For Potassium 2.8 - 3.2 mEq/L 10/11/16 23:45 Potassium Chloride (KCl 20 Meq Premix Inj) 100 ml @ 50 mls/hr Q2H PRN IV For Potassium 2.8 - 3.2 mEq/L 10/11/16 23:45 Potassium Bicarb/ Potassium Chloride 50 meq 50 meq UNSCH PRN PO For Potassium 3.3 - 3.5 mEq/L 10/11/16 23:45 Potassium Chloride 100 ml @ 25 mls/hr UNSCH PRN IV For Potassium 3.3 - 3.5 mEq/L 10/11/16 23:45 Potassium Chloride 100 ml @ 50 mls/hr Q2H PRN IV For Potassium 3.3 - 3.5 mEq/L 10/11/16 23:45 Magnesium Sulfate/ Sodium Chloride (Magnesium Sulfate Inj/NS Inj) 100 ml @ 50 mls/hr UNSCH PRN IV For Magnesium 0.9 - 1.1 mg/dL 10/11/16 23:45 Magnesium Oxide 800 mg 800 mg UNSCH PRN PO For Magnesium 1.2 - 1.6 mg/dL 10/11/16 23:45 Magnesium Sulfate/ Sodium Chloride (Magnesium Sulfate Inj/NS Inj) 100 ml @ 50 mls/hr UNSCH PRN IV For Magnesium 1.2 - 1.6 mg/dL 10/11/16 23:45 Potassium Phosphate 2000 mg 2,000 mg Q4H PRN PO For Phosphorus < 2.5 mg/dL 10/11/16 23:45 Sodium Phosphate/ Sodium Chloride (Sodium Phosphate Inj/NS 250 ml Inj) 250 ml @ 42 mls/hr UNSCH PRN IV For Phosphorus < 2.5 mg/dL 10/11/16 23:45 Potassium Phosphate 2000 mg 2,000 mg UNSCH PRN PO/TUBE SEE LABEL COMMENTS 10/11/16 23:45 Potassium Phosphate/Sodium Chloride (Potassium Phosphate Inj/NS 250 ml Inj) 260 ml @ 42 mls/hr UNSCH PRN IV SEE LABEL COMMENTS 10/11/16 23:45 Docusate Sodium (Colace) 100 mg BID PO 10/12/16 09:00 10/15/16 08:25 Magnesium Hydroxide (Milk Of Magnmode Liq) 30 ml HS PO 10/12/16 21:00 10/14/16 20:51 IV Flush (NS Flush) 2 ml UNSCH PRN IVF FLUSH AFTER USING IV ACCESS 10/13/16 19:00 IV Flush (NS Flush) 2 ml BID IVF 10/13/16 21:00 10/14/16 20:51 Morphine Sulfate (Morphine Inj) 2 mg Q2H PRN IV PUSH PAIN SCALE 1 TO 6 10/13/16 19:00 10/14/16 02:35 Morphine Sulfate (Morphine Inj) 4 mg Q2H PRN IV PUSH PAIN SCALE 7 TO 10 10/13/16 19:00 10/14/16 08:19 Acetaminophen (Tylenol) 650 mg Q4H PRN PO TEMPERATURE > 101.5 F 10/13/16 19:00 Oxycodone/ Acetaminophen (Percocet 10-325 Mg) 1 tab Q4H PRN PO PAIN SCALE 1 TO 7 10/14/16 12:45 10/15/16 08:26 (Kiara Luna) Medical Decision Making MDM Remarks 81 y/o male s/p fall off ladder presents with intractable lumbar pain,with acute L2 burst fracture with minimal canal retropulsion, s/p ORIF L2 fracture with T12 to L4 posterolateral fixation 10/13/16 (Kiara Luna) Plan Plan Remarks cont pain mgt prn with IV Dilauded or oral pain medications cont neuro checks in ISC cont PT, OOB with TLSO, encouraged mobilization nonchemical dvt prophylaxis cont IS every hour (Kiara Luna) Attending Statement The exam, history, and the medical decision-making described in the above note were completed with the assistance of the mid-level provider. I reviewed and agree with the findings presented. I attest that I had a [id number] encounter with the patient on the same day, and personally performed and documented my assessment and findings in the medical record. (Mj Perez MD) Kiara Luna Oct 15, 2016 12:02 Mj Perez MD Oct 15, 2016 18:32
--- NOTE | 2016-10-15 13:57 | HHI.CCPN ---
Subjective Brief History 81-year-old male working on the latter doing something fell off of the ladder and sustained a burst L2 fracture for which he underwent posterior fusion by Dr. Perez. Patient remained in the ICU for the last few days and will be transferred to floor today 24 Hour Review/Hospital Course Stable over last 24 hours still has a fair amount of pain in the lower lumbar area Incision clean and dry Transferred to floor Objective Vital Signs Date Time Temp Pulse Resp B/P Pulse Ox O2 Delivery O2 Flow Rate FiO2 10/15/16 10:00 88 10/15/16 08:18 98 Nasal Cannula 3.00 10/15/16 08:00 97.7 24 137/55 10/14/16 04:03 40 Intake and Output 10/14/16 10/14/16 10/15/16 08:00 16:00 00:00 Intake Total 734 ml 992 ml 1070 ml Output Total 210 ml 501 ml 300 ml Balance 524 ml 491 ml 770 ml Result Diagram: 10/15/16 0330 10/15/16 0330 Exam RECEIVING SPECIALIST Alert oriented Slightly demented Hemodynamic/Cardiac Hemodynamically intact Pulmonary/Respiratory Bilateral good breath sounds Abdomen/GI Nutrition Abdomen soft active bowel sounds Assessment and Plan Attestation The exam, history, and the medical decision-making described in the above note were completed with the assistance of the mid-level provider. I reviewed and agree with the findings presented. I attest that I had a [id number] encounter with the patient on the same day, and personally performed and documented my assessment and findings in the medical record. Critical care time 38 minutes. Ysabel Rene MD Oct 15, 2016 13:57
--- NOTE | 2016-10-15 14:05 | HHI.CCPN ---
Subjective Remarks/Hospital Course 81-year-old male with past medical history of atrial fibrillation on chronic anticoagulation with warfarin, hypertension, diabetes, peripheral neuropathy, prostate cancer who states that he fell off a ladder at around 11 AM on 10/11 while he was trimming palm trees. He states that he fell forward and is uncertain exactly how he landed but developed low back pain after the fall. He laid down on the couch for several hours but to had persistent pain so presents to the emergency department for evaluation. He does have chronic numbness of his feet related to peripheral neuropathy but states he has no numbness or paresthesias beyond baseline. He was able to ambulate. He does not believe he hit his head or lost consciousness. Dr. Perez was consulted and will provided recommendations. Trauma workup including CT brain/Cspine/Chest/ abd pelvis negative for acute traumatic injury. 10/12: INR 1.5. Will treat with FFP tonight and repeat early a.m. Breathing comfortably. 10/13: Coags corrected, to OR for back repair. 10/14: Extubated after back repair. Breathing comfortably this morning. CXR with small bilateral effusions and LLL atelectasis. 10/15: Breathing comfortably. C/o elsi ache with PT. Advised patient to ask for PRN saez medicine prior to PT Objective Vital Signs Date Time Temp Pulse Resp B/P Pulse Ox O2 Delivery O2 Flow Rate FiO2 10/15/16 10:00 88 10/15/16 08:18 98 Nasal Cannula 3.00 10/15/16 08:00 97.7 24 137/55 10/14/16 04:03 40 Intake and Output 10/14/16 10/14/16 10/15/16 08:00 16:00 00:00 Intake Total 734 ml 992 ml 1070 ml Output Total 210 ml 501 ml 300 ml Balance 524 ml 491 ml 770 ml Result Diagram: 10/15/16 03310/15/16 033 Objective Remarks GENERAL: Elderly male. SKIN: Warm and dry. HEAD: Atraumatic. Normocephalic. ENT: No nasal bleeding or discharge. Mucous membranes pink and moist. Dentures in place. NECK: Trachea midline. Airway widely patent. CARDIOVASCULAR: irregular, afib on monitor, rate 70-80s. No murmurs rubs or gallops. No JVD. RESPIRATORY: Clear to auscultation. Breath sounds equal bilaterally. No wheezes opr crackles. GASTROINTESTINAL: Abdomen soft, non-tender, nondistended. bowel sounds present. MUSCULOSKELETAL: Extremities without clubbing, cyanosis, or edema. Well perfused. NEUROLOGICAL: Awake and alert. No obvious cranial nerve deficits. Sensation decreased in feet bilaterally up to ankles. Normal sensation upper leg. Strength 5/5 throughout. Oriented to self, hospital, year, president. No change A/P Assessment and Plan NEURO: Fall from 10 foot ladder L2 burst fracture Peripheral neuropathy at baseline Probable Mild dementia CT brain 10/10no acute abnormality CT C-spine 10/10degenerative changes. No fracture CT lumbar spine 10/10 - monitor to severe compression burst fracture of L2. Mild retropulsion of fracture with spinal stenosis. No epidural hematoma. Chronic wedge deformity of T12 and L1. CT MRI lumbar4/11L2 burst fracture without factors associated spinal stenosis. Indistinct thecal sac at L1 to L3 suggest intradural blood. No large epidural hematoma. The conus terminus is at T12/L1 and is above the intrathecal blood. Continue gabapentin 100 mg by mouth 3 times a day Neurochecks every one hour, change to q2 now per discussion with Dr. Perez s/p ORIF L2 fracture with T12 to L4 posterolateral fixation 10/13/16 Continue PT, OOB with TLSO brace per N/S RESP: Nasal cannula wean as tolerated. Incentive spirometry every hour awake. EzPAP, Acapella CV: Hypertension Hyperlipidemia Chronic atrial fibrillation on chronic and coagulation with warfarin Cardiomegaly Continue metoprolol 25 mg by mouth twice a day Continue spironolactone 25 mg by mouth daily Continue lisinopril 10 monos by mouth daily at bedtime Continue pravastatin 40 mg by mouth daily Obtain 2-D echo. Obtain baseline EKG Echo 12/16/2006 aortic insufficiency. LV function grossly normal. GI: Reducible Bilateral inguinal hernia Hiatal hernia GERD Diet as tolerated Pepcid FEN/RENAL: Bourne in place. Monitor intake and output. Monitor I/O. Monitor creatinine. Replace electrolytes as indicated per ICU electrolyte replacement protocol. ID: Leukocytosis, probable leukemoid reaction due to trauma UA negative for evidence of infection Monitor for signs and symptoms of infection. HEME: History of prostate cancer status post prostatectomy Coagulopathy, warfarin-induced Hold warfarin. FFP 3 units IV. s/p Lasix 20 mg IV and monitor respiratory status closely Follow-up INR in a.m. follow-up CBC in a.m. ENDO: Diabetes mellitus Hold metformin Low-dose insulin sliding scale at bedside glucose ac/hs PROPH: He is currently fully anticoagulated on warfarin. SCDs for DVT prophylaxis. Holding warfarin and giving FFP due to acute traumatic injury with intrathecal blood noted on MRI. Famotidine 20 mill grams by mouth twice a day. ACCESS: Peripheral IV providing adequate access at this time. Patient states he wishes for his [id number] Indu Terry to make medical decisions on his behalf if he is unable. She states she has healthcare surrogate form. Patient, son, and daughter in law updated about expected plan of care. Discussed with Dr. Berumen and Dr. Perez Overall impression: Stable hemodynamics after back surgery. Cough effort acceptable. Level 2/ Dr. Lopez following as primary. CCM will sign off and follow as needed from 10/16/16 Matt Oneal MD Oct 15, 2016 14:05
[2016-10-15] MEDS: LISINOPRIL 10 MG TAB PO SCH (20:16)
[2016-10-15] MEDS: MAGNESIUM HYDROXIDE SUSP 30 ML CUP PO SCH (20:16)
[2016-10-16] VITALS (14 sets, daily range): BP systolic 96–155; BP diastolic 53–90; PULSE 75–114; RESP 10–26; TEMP 97.6–98.6; O2SAT 92–98
[2016-10-16] MEDS: oxyCODONE/ACETAMINOPHEN 10 MG/325 MG TAB PO PRN ×5 (00:06→21:09)
[2016-10-16] MEDS: CHLORHEXIDINE GLUCONATE 2 % 1 PACK (2 CLOTHS) TOP SCH (03:11)
[2016-10-16 05:04] LABS: AUTOMATED NEUTROPHIL # 5.4 TH/MM3 (1.8-7.7); BASOPHIL % 0.2 % (0.0-2.0); EOSINOPHIL # 0.2 TH/MM3 (0-0.4); EOSINOPHIL % 2.8 % (0.0-4.0); HEMATOCRIT 31.5 % (39.0-51.0); HEMO FLAGS DIFF FINAL; LYMPH % 19.7 % (9.0-44.0); LYMPHOCYTE # 1.6 TH/MM3 (1.0-4.8); MEAN CORPUSCULAR HEMOGLOBIN 28.9 PG (27.0-34.0); MEAN CORPUSCULAR HGB CONC 33.6 % (32.0-36.0); MONO % 9.6 % (0.0-8.0); NEUT % 67.7 % (16.0-70.0); PLATELET COUNT 196 TH/MM3 (150-450); RED BLOOD COUNT 3.67 MIL/MM3 (4.50-5.90); RED CELL DISTRIBUTION WIDTH 14.2 % (11.6-17.2); WHITE BLOOD COUNT 7.9 TH/MM3 (4.0-11.0)
[2016-10-16 05:20] LABS: ALKALINE PHOSPHATASE 64 U/L (45-117); ALT (GPT) 18 U/L (12-78); ANION GAP 5 MEQ/L (5-15); AST (GOT) 49 U/L (15-37); BICARBONATE 31.8 MEQ/L (21.0-32.0); BLOOD UREA NITROGEN 19 MG/DL (7-18); CHLORIDE 102 MEQ/L (98-107); GLOMERULAR FILTRATION RATE 102 ML/MIN (>89); MAGNESIUM 2.4 MG/DL (1.5-2.5); POTASSIUM 4.2 MEQ/L (3.5-5.1); SODIUM (NA) 139 MEQ/L (136-145); TOTAL BILIRUBIN ADULT 0.7 MG/DL (0.2-1.0)
[2016-10-16] MEDS: INSULIN NovoLIN REGULAR SUPPLEMENTAL SCALE SQ SCH ×4 (05:23→21:00)
[2016-10-16] MEDS: GABAPENTIN 100 MG CAP PO SCH ×3 (08:08→17:04)
[2016-10-16] MEDS: PRAVASTATIN SOD 40 MG TAB PO SCH (08:08)
[2016-10-16] MEDS: FUROSEMIDE 40 MG TAB PO SCH (08:08)
[2016-10-16] MEDS: SPIRONOLACTONE 25 MG TAB PO SCH (08:08)
[2016-10-16] MEDS: POTASSIUM CHLORIDE 10 MEQ CONTROLLED RELEASE TAB PO SCH (08:08)
[2016-10-16] MEDS: LACTULOSE SYRUP 20 GM/30 ML CUP PO SCH (08:08)
[2016-10-16] MEDS: DOCUSATE SODIUM 100 MG CAP PO SCH ×2 (08:08→21:09)
[2016-10-16] MEDS: FAMOTIDINE 20 MG TAB PO SCH ×2 (08:08→21:08)
[2016-10-16] MEDS: METOPROLOL TARTRATE 25 MG TAB PO SCH ×2 (08:08→21:09)
[2016-10-16] MEDS: SODIUM CHLORIDE 0.9% FLUSH 5 ML FLUSH IVF SCH ×2 (08:09→21:00)
[2016-10-16] MEDS: SODIUM CHLORIDE 0.9% FLUSH 10 ML FLUSH IV FLUSH SCH (08:09)
[2016-10-16] MEDS: VITAMIN B COMPLEX/VIT C TAB PO SCH (09:00)
--- NOTE | 2016-10-16 10:23 | HHI.NSPN ---
(Kiara Luna) Note Status Status: Progress Note (Kiara Luna) Interval History Interval History This is a 81 year old male who was up a ladder trimming some trees when the ladder swayed causing him to fall. He estimates that he fell about 10 feet. He is not sure if he landed on his back or on his buttocks. Sudden onset of low back pain. No LOC. N sezire activity. No tongue bitting. No incontnence of stool or urine. He comes to the emergency department complaining of severe low back pain. His pain is located in the upper lumbar and thoracolumbar region. Severity 10/10. He describes a sharp, stabbing pain. he has numbness in his lower extremities and feet, which is chronic. CT lumbar spine showed a L2 fracture. Neurosurgical consultation was requested. 10/12: pain stable when not moving. denies new neuro complaint. MRI L spine completed. Received FFP last night as he was previously anticoagulated on Coumadin. 10/14: POD 1 s/p ORIF L2 fx, mildly confused, required CPAP last night 10/15: POD 2, stable confusion, coughing up phlegm daughter reports has chronic hx of phlegm in the am, lumbar pain with movement 10/16: POD 3, stable confusion, coughing improved today (Kiara Luna) Labs, Micro, & Vital Signs Results Date Time Temp Pulse Resp B/P Pulse Ox O2 Delivery O2 Flow Rate FiO2 10/16/16 07:19 98 Nasal Cannula 3.00 10/16/16 06:00 82 10/16/16 04:00 97.6 88 26 134/90 92 10/16/16 04:00 84 10/16/16 02:00 97 10/16/16 00:00 94 10/16/16 00:00 98.6 88 23 123/69 94 10/15/16 22:00 103 10/15/16 20:49 97 Nasal Cannula 3.00 10/15/16 20:00 98.3 98 17 137/71 96 10/15/16 20:00 89 10/15/16 19:00 95 Nasal Cannula 4.00 Humidified 10/15/16 18:00 98 10/15/16 16:00 102 10/15/16 16:00 97.9 102 20 120/71 95 10/15/16 14:00 98 10/15/16 12:00 98 10/15/16 12:00 97.8 96 22 120/68 95 10/16/16 07:00 Intake Total 1719 ml Output Total 2107 ml Balance -388 ml Constitutional Vital Signs Date Time Temp Pulse Resp B/P Pulse Ox O2 Delivery O2 Flow Rate FiO2 10/16/16 07:19 98 Nasal Cannula 3.00 10/16/16 06:00 82 10/16/16 04:00 97.6 88 26 134/90 92 10/16/16 04:00 84 10/16/16 02:00 97 10/16/16 00:00 94 10/16/16 00:00 98.6 88 23 123/69 94 10/15/16 22:00 103 10/15/16 20:49 97 Nasal Cannula 3.00 10/15/16 20:00 98.3 98 17 137/71 96 10/15/16 20:00 89 10/15/16 19:00 95 Nasal Cannula 4.00 Humidified 10/15/16 18:00 98 10/15/16 16:00 102 10/15/16 16:00 97.9 102 20 120/71 95 10/15/16 14:00 98 10/15/16 12:00 98 10/15/16 12:00 97.8 96 22 120/68 95 10/16/16 07:00 Intake Total 1719 ml Output Total 2107 ml Balance -388 ml (Kiara Luna) Review of Systems/Exam Exam Mr. Terry is alert, oriented to name and year, not to place, follows simple commands. Mildly confused. Feeding himself breakfast. TRINIDAD drain minimal drainage Cranial nerve examination: pupils equal, round, and reactive to light. Facial motor are normal and symmetrical. Neck is soft and supple. Motor: moves major muscle groups of lower extremities well, proximal strength continues to be limited due to surgical pain Sensory examination is decreased in both feet which he reports is chronic due to neuropathy bilateral plantar flexion response. no ankle clonus (Kiara Luna) Medications Current Medications Current Medications Medications (Trade) Dose Ordered Sig/Rachel Route PRN Reason Start Time Stop Time Status Last Admin Dose Admin Sodium Chloride (NS Flush) 2 ml UNSCH PRN IV FLUSH FLUSH AFTER USING IV ACCESS 10/11/16 21:15 Sodium Chloride (NS Flush) 2 ml BID IV FLUSH 10/11/16 21:15 10/16/16 08:09 Ondansetron HCl (Zofran Inj) 4 mg Q6H PRN IV NAUSEA OR VOMITING 10/11/16 21:15 10/12/16 03:09 Lactulose (Lactulose Liq) 30 ml DAILY PO 10/12/16 09:00 10/15/16 08:26 Miscellaneous Information 1 Q361D XX 10/11/16 21:15 10/11/16 22:28 Chlorhexidine Gluconate (Chlorhexidine 2% Cloth) 3 pack Taper DAILY@04 TOP 10/12/16 04:00 10/08/17 03:59 10/16/16 03:11 Chlorhexidine Gluconate (Chlorhexidine 2% Cloth) 3 pack UNSCH PRN TOP HYGIENIC CARE 10/11/16 21:15 Hydromorphone HCl (Dilaudid Pf Inj) 0.5 mg Q3HR PRN IV PUSH PAIN SCALE 5 TO 10 10/11/16 21:15 10/12/16 05:49 Hydromorphone HCl (Dilaudid Pf Inj) 0.2 mg Q3HR PRN IV PUSH PAIN SCALE 1 TO 5 10/11/16 21:15 10/14/16 04:51 Furosemide (Lasix) 40 mg DAILY PO 10/12/16 09:00 10/16/16 08:08 Gabapentin (Neurontin) 100 mg TID PO 10/12/16 09:00 10/16/16 08:08 Lisinopril (Prinivil) 10 mg HS PO 10/12/16 21:00 10/15/16 20:16 Metoprolol Tartrate (Lopressor) 25 mg BID PO 10/12/16 09:00 10/16/16 08:08 Potassium Chloride (KCl) 10 meq DAILY PO 10/12/16 09:00 10/16/16 08:08 Spironolactone (Aldactone) 25 mg DAILY PO 10/12/16 09:00 10/16/16 08:08 Vitamin B Complex/ Vitamin C (Allbee C) 1 tab DAILY PO 10/12/16 09:00 10/15/16 08:26 Famotidine (Pepcid) 20 mg BID PO 10/12/16 09:00 10/16/16 08:08 Pravastatin Sodium 40 mg 40 mg DAILY PO CM 10/12/16 09:00 10/16/16 08:08 Potassium Chloride 100 ml @ 50 mls/hr Q2H PRN IV For Potassium 2.8 - 3.2 mEq/L 10/11/16 23:45 Potassium Chloride (KCl 20 Meq Premix Inj) 100 ml @ 50 mls/hr Q2H PRN IV For Potassium 2.8 - 3.2 mEq/L 10/11/16 23:45 Potassium Bicarb/ Potassium Chloride 50 meq 50 meq UNSCH PRN PO For Potassium 3.3 - 3.5 mEq/L 10/11/16 23:45 Potassium Chloride 100 ml @ 25 mls/hr UNSCH PRN IV For Potassium 3.3 - 3.5 mEq/L 10/11/16 23:45 Potassium Chloride 100 ml @ 50 mls/hr Q2H PRN IV For Potassium 3.3 - 3.5 mEq/L 10/11/16 23:45 Magnesium Sulfate/ Sodium Chloride (Magnesium Sulfate Inj/NS Inj) 100 ml @ 50 mls/hr UNSCH PRN IV For Magnesium 0.9 - 1.1 mg/dL 10/11/16 23:45 Magnesium Oxide 800 mg 800 mg UNSCH PRN PO For Magnesium 1.2 - 1.6 mg/dL 10/11/16 23:45 Magnesium Sulfate/ Sodium Chloride (Magnesium Sulfate Inj/NS Inj) 100 ml @ 50 mls/hr UNSCH PRN IV For Magnesium 1.2 - 1.6 mg/dL 10/11/16 23:45 Potassium Phosphate 2000 mg 2,000 mg Q4H PRN PO For Phosphorus < 2.5 mg/dL 10/11/16 23:45 Sodium Phosphate/ Sodium Chloride (Sodium Phosphate Inj/NS 250 ml Inj) 250 ml @ 42 mls/hr UNSCH PRN IV For Phosphorus < 2.5 mg/dL 10/11/16 23:45 Potassium Phosphate 2000 mg 2,000 mg UNSCH PRN PO/TUBE SEE LABEL COMMENTS 10/11/16 23:45 Potassium Phosphate/Sodium Chloride (Potassium Phosphate Inj/NS 250 ml Inj) 260 ml @ 42 mls/hr UNSCH PRN IV SEE LABEL COMMENTS 10/11/16 23:45 Docusate Sodium (Colace) 100 mg BID PO 10/12/16 09:00 10/16/16 08:08 Magnesium Hydroxide (Milk Of Magnesia Liq) 30 ml HS PO 10/12/16 21:00 10/15/16 20:16 IV Flush (NS Flush) 2 ml UNSCH PRN IVF FLUSH AFTER USING IV ACCESS 10/13/16 19:00 IV Flush (NS Flush) 2 ml BID IVF 10/13/16 21:00 10/16/16 08:09 Morphine Sulfate (Morphine Inj) 2 mg Q2H PRN IV PUSH PAIN SCALE 1 TO 6 10/13/16 19:00 10/14/16 02:35 Morphine Sulfate (Morphine Inj) 4 mg Q2H PRN IV PUSH PAIN SCALE 7 TO 10 10/13/16 19:00 10/14/16 08:19 Acetaminophen (Tylenol) 650 mg Q4H PRN PO TEMPERATURE > 101.5 F 10/13/16 19:00 Oxycodone/ Acetaminophen (Percocet 10-325 Mg) 1 tab Q4H PRN PO PAIN SCALE 1 TO 7 10/14/16 12:45 10/16/16 08:21 (Kiara Luna) Medical Decision Making MDM Remarks 81 y/o male s/p fall off ladder presents with intractable lumbar pain,with acute L2 burst fracture with minimal canal retropulsion, s/p ORIF L2 fracture with T12 to L4 posterolateral fixation 10/13/16 (Kiara Luna) Plan Plan Remarks cont currenc care, cont pain control prn cont PT, OOB with TLSO, encouraged mobilization - goal to stand out of bed today dc TRINIDAD drain clear to start lovenox for dvt prophylaxis clear to transfer out of unit, 6N near nursing station only (Kiara Luna) Attending Statement The exam, history, and the medical decision-making described in the above note were completed with the assistance of the mid-level provider. I reviewed and agree with the findings presented. I attest that I had a [id number] encounter with the patient on the same day, and personally performed and documented my assessment and findings in the medical record. (Mj Perez MD) Kiara Luna Oct 16, 2016 10:23 Mj Perez MD Oct 17, 2016 12:22
--- NOTE | 2016-10-16 14:38 | HHI.CCPN ---
Subjective Brief History HOOPA: This is a 81-year-old male with past medical history of atrial fibrillation on chronic anticoagulation with warfarin, hypertension, diabetes, peripheral neuropathy, prostate cancer who states that he fell off a ladder at around 11 AM on 10/11 while he was trimming palm trees. He states that he fell forward and is uncertain exactly how he landed but developed low back pain after the fall. He laid down on the couch for several hours but to had persistent pain so presents to the emergency department for evaluation. He does have chronic numbness of his feet related to peripheral neuropathy but states he has no numbness or paresthesias beyond baseline. He was able to ambulate. He does not believe he hit his head or lost consciousness. Dr. Perez was consulted and will provided recommendations. Trauma workup including CT brain/Cspine/Chest/abd pelvis negative for acute traumatic injury. PMHx: Afib. Prostate CA. HLD, DM. HTN. CPAP INJURIES: L2 compression/burst fx (mild retropulsion w/ associated spinal stenosis) T12 chronic wedge deformity Procedures: 10/13: ORIF L2 fx. L4 posterior fixation. 24 Hour Review/Hospital Course 10/12: INR 1.5. Will treat with FFP tonight and repeat early a.m. Breathing comfortably. 10/13/2016 Coags corrected, to OR for back repair. 10/14/2016 Extubated after back repair. Breathing comfortably this morning. CXR with small bilateral effusions and LLL atelectasis. 10/15/2016 Breathing comfortably. C/o back ache with PT. Advised patient to ask for PRN pain medicine prior to PT Stable over last 24 hours still has a fair amount of pain in the lower lumbar area Incision clean and dry Transferred to floor 10/16/2016 PTD: 5 Patient sitting up in bed, in no acute distress. Patient remains very confused today. Only on O2 via nasal cannula at this point. Plan for transferred to the [facility] floor with a room close to the nursing station for close monitoring due to his confusion. Objective Vital Signs Date Time Temp Pulse Resp B/P Pulse Ox O2 Delivery O2 Flow Rate FiO2 10/16/16 14:00 93 10/16/16 12:00 98.2 20 96/53 97 10/16/16 07:19 Nasal Cannula 3.00 10/14/16 04:03 40 Intake and Output 10/15/16 10/15/16 10/16/16 08:00 16:00 00:00 Intake Total 912 ml 963 ml 546 ml Output Total 226 ml 1502 ml 300 ml Balance 686 ml -539 ml 246 ml Result Diagram: 10/16/16 0420 10/16/16 0420 Imaging Last Impressions Chest X-Ray 10/14/16 0600 Signed Impressions: Service Date/Time: Friday, October 14, 2016 05:08 - CONCLUSION: 1. The cardiac silhouette is enlarged in transverse diameter. 2. Left lower lobe atelectasis versus pneumonia. 3. There has been no significant change when compared to the prior exam. Cresencio Parekh MD Lumbar Spine X-Ray 10/13/16 0000 Signed Impressions: Service Date/Time: Thursday, October 13, 2016 13:01 - CONCLUSION: Satisfactory operative appearance Jm Saldivar MD Pelvis X-Ray 10/11/16 1854 Signed Impressions: Service Date/Time: Tuesday, October 11, 2016 19:04 - CONCLUSION: Intact pelvis. Jm Chong MD Lumbar Spine CT 10/11/16 1550 Signed Impressions: Service Date/Time: Tuesday, October 11, 2016 17:24 - CONCLUSION: 1. Moderate to severe compression/burst fracture of L2 that appears acute. Mild retropulsion and mild fracture-associated spinal stenosis, slightly eccentric towards the left. No epidural hematoma. 2. Mild chronic appearing wedge deformity of T12 and L1. 3. Mild multilevel degenerative changes as above. No high-grade foraminal or spinal stenosis demonstrated. Jm Chong MD Lumbar Spine MRI 10/11/16 0000 Signed Impressions: Service Date/Time: Tuesday, October 11, 2016 22:04 - CONCLUSION: 1. Moderate to severe acute compression/burst fracture superiorly of the L2 vertebral body without significant fracture-associated foraminal or spinal stenosis. Very indistinct thecal sac contents from L1 to L2/L3 suggesting intradural blood. No large epidural hematoma. Conus terminus is just below T12/L1 and above the fracture and presumed intrathecal blood. 2. Other findings are chronic/degenerative without significant foraminal or spinal stenosis. Jm Chong MD Head CT 10/11/16 0000 Signed Impressions: Service Date/Time: Tuesday, October 11, 2016 21:09 - CONCLUSION: No bleed or other acute intracranial abnormality. Jm Chong MD Chest CT 10/11/16 0000 Signed Impressions: Service Date/Time: Tuesday, October 11, 2016 21:17 - CONCLUSION: 1. Other than trace bibasilar atelectasis, no acute abnormality demonstrated. 2. Old, healed left rib fractures with callus formation and mild deformity as well as mild, chronic pleural thickening. No acute fracture. 3. Moderate hiatal hernia. 4. Cardiomegaly and coronary artery calcification. Jm Chong MD Cervical Spine CT 10/11/16 0000 Signed Impressions: Service Date/Time: Tuesday, October 11, 2016 21:09 - CONCLUSION: Degenerative changes of the cervical spine as above. No fracture or acute malalignment. Jm Chong MD Abdomen/Pelvis CT 10/11/16 0000 Signed Impressions: Service Date/Time: Tuesday, October 11, 2016 21:17 - CONCLUSION: 1. No visceral organ injury or other acute abnormality within the abdomen or pelvis. 2. Acute L2 burst fracture. 3. Nodular focus posteriorly of the urinary bladder. This is nonspecific. Patient has had previous prostatectomy and a localized area of mildly masslike scarring possible. True mass not excludable by the CT appearance. Direct visualization with cystoscopy recommended when clinically feasible. 4. Bilateral inguinal hernias containing fat and the appendix on the right and containing fat only on the left. No acute complication demonstrated. Jm Chong MD Objective Remarks GENERAL: This is a 81-year-old male sitting up in bed. Confused SKIN: Warm and dry. HEAD: Atraumatic. Normocephalic. EYES: PERRLA ENT: No nasal bleeding or discharge. Mucous membranes pink and moist. NECK: Trachea midline. No JVD. CARDIOVASCULAR: Regular rate and rhythm. RESPIRATORY: No accessory muscle use. Lungs are clear to auscultation. Breath sounds equal bilaterally. No distress or dyspnea. GASTROINTESTINAL: BS + x 4 quads. Abdomen soft, non-tender, nondistended. Bourne catheter in place to bedside drainage bag with clear yellow urine. MUSCULOSKELETAL: Extremities without cyanosis, or edema. + peripheral pulses x 4 extremities. Warm with good capillary refill and sensation. MAEW. NEUROLOGICAL: Awake and alert. Normal speech and pattern, however confused. Urinary Catheter Assessment Urinary Catheter: Yes Assessment to: Continue Bourne insert reason: Measure Accurate Output Vascular Central Line Catheter Vascular Central Line Catheter: No Assessment and Plan Assessment: (1) L2 vertebral fracture ICD Code: S32.029A Status: Acute (2) A-fib ICD Code: I48.91 Status: Chronic (3) HLD (hyperlipidemia) ICD Code: E78.5 Status: Acute (4) Diabetes mellitus ICD Code: E11.9 Status: Chronic (5) GERD (gastroesophageal reflux disease) ICD Code: K21.9 Status: Chronic (6) Hypertension ICD Code: I10 Status: Chronic Plan HOOPA: This is a 81-year-old male who sustained a fall of approximately 10 feet. INJURIES: L2 compression/burst fx (mild retropulsion w/ associated spinal stenosis) T12 chronic wedge deformity Procedures: 10/13: ORIF L2 fracture. L4 posterior fixation Consults: CCM. Neurosurgery. Diet: Regular diet. Tolerating po diet. Encourage good po intake with each meal. Pulmonary: Encourage good pulmonary toileting. IS at bedside and pt encouraged to use. Rationale for use explained to patient, and verbalized understanding. PAIN Management: Percocet po. Morphine IV for breakthrough pain. Neurontin po Activity: OOB. PT and OT ordered. TLSO brace when out of bed. GI prophylaxis: Pepcid po Bowel regimen: Colace and MOM. Lactulose daily. LBM: 10/16 DVT prophylaxis: Mechanical VTE with SCDs. Chemical management TBD. (No Lovenox yet as per neurosurgery.) DC Planning: Case management consulted for assistance with final discharge disposition. Patient will most likely need placement. Emotional support provided to patient and family at bedside and plan of care discussed. Discussed with RN and at bedside on rounds . Patient is hemodynamically stable in the ICU, therefore he can be transferred and managed on the med/surg floor in a room close to the nursing station due to his confusion. Problem Qualifiers (1) L2 vertebral fracture: Qualified Code: S32.021A - Closed stable burst fracture of second lumbar vertebra, initial encounter (2) A-fib: Qualified Code: I48.2 - Chronic atrial fibrillation (3) Diabetes mellitus: Brittany Young Oct 16, 2016 14:38
--- NOTE | 2016-10-16 14:40 | HHI.PR ---
Subjective Remarks resting quietly post op some intermittant confusion slept better last pm Objective Vital Signs Date Time Temp Pulse Resp B/P Pulse Ox O2 Delivery O2 Flow Rate FiO2 10/16/16 14:00 93 10/16/16 12:00 98.2 84 20 96/53 97 10/16/16 12:00 75 10/16/16 10:00 88 10/16/16 08:00 98.2 94 10 131/69 96 10/16/16 08:00 114 10/16/16 07:19 98 Nasal Cannula 3.00 10/16/16 07:00 96 Nasal Cannula 4.00 Humidified 10/16/16 06:00 82 10/16/16 04:00 97.6 88 26 134/90 92 10/16/16 04:00 84 10/16/16 02:00 97 10/16/16 00:00 94 10/16/16 00:00 98.6 88 23 123/69 94 10/15/16 22:00 103 10/15/16 20:49 97 Nasal Cannula 3.00 10/15/16 20:00 98.3 98 17 137/71 96 10/15/16 20:00 89 10/15/16 19:00 95 Nasal Cannula 4.00 Humidified 10/15/16 18:00 98 10/15/16 16:00 102 10/15/16 16:00 97.9 102 20 120/71 95 I/O 10/15/16 10/15/16 10/15/16 10/16/16 10/16/16 10/16/16 07:00 15:00 23:00 07:00 15:00 23:00 Intake Total 912 ml 963 ml 546 ml 210 ml 240 ml Output Total 226 ml 1502 ml 300 ml 305 ml 750 ml Balance 686 ml -539 ml 246 ml -95 ml -510 ml Intake Oral 120 ml 210 ml 546 ml 210 ml 240 ml IV Total 792 ml 753 ml Output Urine Total 225 ml 1500 ml 300 ml 300 ml 750 ml Drainage Total 1 ml 2 ml 0 ml 5 ml 0 ml # Bowel Movements 0 0 1 1 0 Result Diagram: 10/16/16 04210/16/16 0420 Procedures stabilazation of lumbar burst fx Objective Remarks CONSTITUTIONAL/GENERAL: This is an adequately nourished patient, in no apparent distress. TUBES/LINES/DRAINS: SKIN: No jaundice, rashes, or lesions. Ecchymoses on upper extremities. No wounds seen anteriorly. Skin temperature appropriate. Not diaphoretic. HEAD: Atraumatic. Normocephalic. EYES: Pupils equal and round and reactive. Extraocular motions intact. No scleral icterus. No injection or drainage. Fundi not examined. ENT: Hearing grossly normal. Nose without bleeding or purulent drainage. Throat without visible erythema, exudates, masses, or lesions. NECK: Trachea midline. Supple, nontender. No palpable thyroid enlargement or nodularity. CARDIOVASCULAR: Regular rate and rhythm without murmurs, gallops, or rubs. No JVD. Peripheral pulses symmetric. RESPIRATORY/CHEST: Symmetric, unlabored respirations..diminished in bases GASTROINTESTINAL: Abdomen soft, non-tender, nondistended. No hepato-splenomegaly , or palpable masses. No guarding. Bowel sounds present. GENITOURINARY: Without palpable bladder distension. Bourne catheter in place. MUSCULOSKELETAL: Extremities without clubbing, cyanosis, or edema. No joint tenderness or effusion noted. No calf tenderness. No mottling or clubbing.recent surgery lumbar spine LYMPHATICS: No palpable cervical or supraclavicular adenopathy. NEUROLOGICAL: Awake and alert. Motor and sensory grossly within normal limits. Follows commands. some hallucinations. Moves all extremities. PSYCHIATRIC:occasionally mildly confused Medications and IVs Current Medications Medications (Trade) Dose Ordered Sig/Rachel Route PRN Reason Start Time Stop Time Status Last Admin Dose Admin Sodium Chloride (NS Flush) 2 ml UNSCH PRN IV FLUSH FLUSH AFTER USING IV ACCESS 10/11/16 21:15 Sodium Chloride (NS Flush) 2 ml BID IV FLUSH 10/11/16 21:15 10/16/16 08:09 Ondansetron HCl (Zofran Inj) 4 mg Q6H PRN IV NAUSEA OR VOMITING 10/11/16 21:15 10/12/16 03:09 Lactulose (Lactulose Liq) 30 ml DAILY PO 10/12/16 09:00 10/15/16 08:26 Miscellaneous Information 1 Q361D XX 10/11/16 21:15 10/11/16 22:28 Chlorhexidine Gluconate (Chlorhexidine 2% Cloth) 3 pack Taper DAILY@04 TOP 10/12/16 04:00 10/08/17 03:59 10/16/16 03:11 Chlorhexidine Gluconate (Chlorhexidine 2% Cloth) 3 pack UNSCH PRN TOP HYGIENIC CARE 10/11/16 21:15 Hydromorphone HCl (Dilaudid Pf Inj) 0.5 mg Q3HR PRN IV PUSH PAIN SCALE 5 TO 10 10/11/16 21:15 10/12/16 05:49 Hydromorphone HCl (Dilaudid Pf Inj) 0.2 mg Q3HR PRN IV PUSH PAIN SCALE 1 TO 5 10/11/16 21:15 10/14/16 04:51 Furosemide (Lasix) 40 mg DAILY PO 10/12/16 09:00 10/16/16 08:08 Gabapentin (Neurontin) 100 mg TID PO 10/12/16 09:00 10/16/16 13:38 Lisinopril (Prinivil) 10 mg HS PO 10/12/16 21:00 10/15/16 20:16 Metoprolol Tartrate (Lopressor) 25 mg BID PO 10/12/16 09:00 10/16/16 08:08 Potassium Chloride (KCl) 10 meq DAILY PO 10/12/16 09:00 10/16/16 08:08 Spironolactone (Aldactone) 25 mg DAILY PO 10/12/16 09:00 10/16/16 08:08 Vitamin B Complex/ Vitamin C (Allbee C) 1 tab DAILY PO 10/12/16 09:00 10/15/16 08:26 Famotidine (Pepcid) 20 mg BID PO 10/12/16 09:00 10/16/16 08:08 Pravastatin Sodium 40 mg 40 mg DAILY PO CM 10/12/16 09:00 10/16/16 08:08 Potassium Chloride 100 ml @ 50 mls/hr Q2H PRN IV For Potassium 2.8 - 3.2 mEq/L 10/11/16 23:45 Potassium Chloride (KCl 20 Meq Premix Inj) 100 ml @ 50 mls/hr Q2H PRN IV For Potassium 2.8 - 3.2 mEq/L 10/11/16 23:45 Potassium Bicarb/ Potassium Chloride 50 meq 50 meq UNSCH PRN PO For Potassium 3.3 - 3.5 mEq/L 10/11/16 23:45 Potassium Chloride 100 ml @ 25 mls/hr UNSCH PRN IV For Potassium 3.3 - 3.5 mEq/L 10/11/16 23:45 Potassium Chloride 100 ml @ 50 mls/hr Q2H PRN IV For Potassium 3.3 - 3.5 mEq/L 10/11/16 23:45 Magnesium Sulfate/ Sodium Chloride (Magnesium Sulfate Inj/NS Inj) 100 ml @ 50 mls/hr UNSCH PRN IV For Magnesium 0.9 - 1.1 mg/dL 10/11/16 23:45 Magnesium Oxide 800 mg 800 mg UNSCH PRN PO For Magnesium 1.2 - 1.6 mg/dL 10/11/16 23:45 Magnesium Sulfate/ Sodium Chloride (Magnesium Sulfate Inj/NS Inj) 100 ml @ 50 mls/hr UNSCH PRN IV For Magnesium 1.2 - 1.6 mg/dL 10/11/16 23:45 Potassium Phosphate 2000 mg 2,000 mg Q4H PRN PO For Phosphorus < 2.5 mg/dL 10/11/16 23:45 Sodium Phosphate/ Sodium Chloride (Sodium Phosphate Inj/NS 250 ml Inj) 250 ml @ 42 mls/hr UNSCH PRN IV For Phosphorus < 2.5 mg/dL 10/11/16 23:45 Potassium Phosphate 2000 mg 2,000 mg UNSCH PRN PO/TUBE SEE LABEL COMMENTS 10/11/16 23:45 Potassium Phosphate/Sodium Chloride (Potassium Phosphate Inj/NS 250 ml Inj) 260 ml @ 42 mls/hr UNSCH PRN IV SEE LABEL COMMENTS 10/11/16 23:45 Docusate Sodium (Colace) 100 mg BID PO 10/12/16 09:00 10/16/16 08:08 Magnesium Hydroxide (Milk Of Magnesia Liq) 30 ml HS PO 10/12/16 21:00 10/15/16 20:16 IV Flush (NS Flush) 2 ml UNSCH PRN IVF FLUSH AFTER USING IV ACCESS 10/13/16 19:00 IV Flush (NS Flush) 2 ml BID IVF 10/13/16 21:00 10/16/16 08:09 Morphine Sulfate (Morphine Inj) 2 mg Q2H PRN IV PUSH PAIN SCALE 1 TO 6 10/13/16 19:00 10/14/16 02:35 Morphine Sulfate (Morphine Inj) 4 mg Q2H PRN IV PUSH PAIN SCALE 7 TO 10 10/13/16 19:00 10/14/16 08:19 Acetaminophen (Tylenol) 650 mg Q4H PRN PO TEMPERATURE > 101.5 F 10/13/16 19:00 Oxycodone/ Acetaminophen (Percocet 10-325 Mg) 1 tab Q4H PRN PO PAIN SCALE 1 TO 7 10/14/16 12:45 10/16/16 08:21 Assessment and Plan Problem List: (1) L2 vertebral fracture Status: Acute (2) Hypertension Status: Chronic (3) Diabetes mellitus Status: Chronic (4) A-fib Status: Chronic Plan: inr now 1.5 Assessment and Plan cxr shows questionable inflt left lung base ct recomended would wait untill lumbar spine is stabilized to asses ct anticipate orif in am post op day 1 stable will add po percocet for pain and attempt to avoid MS and Dilaudid post op day 2 some confusion morphine and dilaudid minimized will follow may be early dementia as he does have some problems at home prior to this fall post op day 3 constipated add dulcolax Problem Qualifiers (1) L2 vertebral fracture: Qualified Code: S32.021A - Closed stable burst fracture of second lumbar vertebra, initial encounter (2) Diabetes mellitus: (3) A-fib: Qualified Code: I48.2 - Chronic atrial fibrillation Dante Manning DO Oct 16, 2016 14:40
[2016-10-16] MEDS ORDERED: BISACODYL 10 MG SUPP RECTAL PRN (14:45)
[2016-10-16] MEDS: LISINOPRIL 10 MG TAB PO SCH (21:09)
[2016-10-16] MEDS: MAGNESIUM HYDROXIDE SUSP 30 ML CUP PO SCH (21:09)
[2016-10-17] VITALS (7 sets, daily range): BP systolic 103–140; BP diastolic 56–77; PULSE 71–102; RESP 16–18; TEMP 95.8–97.7; O2SAT 96–98
[2016-10-17] MEDS: oxyCODONE/ACETAMINOPHEN 10 MG/325 MG TAB PO PRN ×5 (02:50→20:49)
[2016-10-17] MEDS: CHLORHEXIDINE GLUCONATE 2 % 1 PACK (2 CLOTHS) TOP SCH (04:00)
[2016-10-17] MEDS: INSULIN NovoLIN REGULAR SUPPLEMENTAL SCALE SQ SCH ×4 (06:59→20:43)
[2016-10-17] MEDS: POTASSIUM CHLORIDE 10 MEQ CONTROLLED RELEASE TAB PO SCH (08:57)
[2016-10-17] MEDS: SPIRONOLACTONE 25 MG TAB PO SCH (08:57)
[2016-10-17] MEDS: SODIUM CHLORIDE 0.9% FLUSH 10 ML FLUSH IV FLUSH SCH ×2 (08:57→20:50)
[2016-10-17] MEDS: GABAPENTIN 100 MG CAP PO SCH ×3 (08:57→17:07)
[2016-10-17] MEDS: FAMOTIDINE 20 MG TAB PO SCH ×2 (08:57→20:50)
[2016-10-17] MEDS: FUROSEMIDE 40 MG TAB PO SCH (08:57)
[2016-10-17] MEDS: VITAMIN B COMPLEX/VIT C TAB PO SCH (08:57)
[2016-10-17] MEDS: LACTULOSE SYRUP 20 GM/30 ML CUP PO SCH (08:57)
[2016-10-17] MEDS: DOCUSATE SODIUM 100 MG CAP PO SCH ×2 (08:57→20:51)
[2016-10-17] MEDS: PRAVASTATIN SOD 40 MG TAB PO SCH (08:57)
[2016-10-17] MEDS: METOPROLOL TARTRATE 25 MG TAB PO SCH ×2 (08:57→20:51)
[2016-10-17] MEDS: SODIUM CHLORIDE 0.9% FLUSH 5 ML FLUSH IVF SCH ×2 (08:58→20:53)
[2016-10-17] MEDS: ENOXAPARIN SODIUM 30 MG/0.3 ML SYRINGE SQ SCH ×2 (09:03→20:50)
[2016-10-17] MEDS: HYDROmorphone HCL PF 1 MG/ML VIAL IV PUSH PRN (10:05)
--- NOTE | 2016-10-17 11:18 | HHI.PR ---
Subjective Remarks Patient is alert and cooperative. Denies any CP or SOB. Difficulty turning from side to side. Son reported that yesterday patient got out of bed and took some steps Objective Vital Signs Date Time Temp Pulse Resp B/P Pulse Ox O2 Delivery O2 Flow Rate FiO2 10/17/16 10:44 18 10/17/16 08:15 96 Nasal Cannula 2.00 10/17/16 08:00 96.6 102 18 108/59 98 10/17/16 07:57 18 10/17/16 00:40 95.8 71 18 140/66 97 10/16/16 22:00 94 10/16/16 20:00 96 10/16/16 20:00 98.4 97 17 155/77 96 10/16/16 19:33 97 Nasal Cannula 3.00 10/16/16 19:00 96 Nasal Cannula 4.00 Humidified 10/16/16 18:00 94 10/16/16 16:00 98.2 98 23 133/69 92 10/16/16 16:00 98 10/16/16 14:00 93 10/16/16 12:00 98.2 84 20 96/53 97 10/16/16 12:00 75 I/O 10/16/16 10/16/16 10/16/16 10/17/16 10/17/16 10/17/16 07:00 15:00 23:00 07:00 15:00 23:00 Intake Total 210 ml 240 ml 625 ml 360 ml Output Total 305 ml 750 ml 305 ml 250 ml Balance -95 ml -510 ml 320 ml 110 ml Intake Oral 210 ml 240 ml 625 ml 360 ml Output Urine Total 300 ml 750 ml 300 ml 250 ml Drainage Total 5 ml 0 ml 5 ml # Bowel Movements 1 0 0 0 Result Diagram: 10/16/1641910/16/16 0420 Procedures stabilazation of lumbar burst fx Objective Remarks GENERAL: Very pleasant elderly male. SKIN: Warm and dry.Dressing dry and intact on back HEAD: Atraumatic. Normocephalic. ENT: No nasal bleeding or discharge. Mucous membranes pink and moist. Dentures in place NECK: Trachea midline. CARDIOVASCULAR: irregular, afib on monitor. No murmurs rubs or gallops. No JVD. RESPIRATORY: No accessory muscle use. Clear to auscultation. Breath sounds equal bilaterally. GASTROINTESTINAL: Abdomen soft, non-tender, nondistended. bowel sounds present. MUSCULOSKELETAL: Extremities without clubbing, cyanosis, or edema. Well perfused. NEUROLOGICAL: Awake and alert. No obvious cranial nerve deficits. Sensation decreased in feet bilaterally up to ankles. Normal sensation upper leg.Strength 5/5 throughout. Oriented to self, hospital, year, president. Has difficulty with memory and appears to have mild dementia; family states he is at baseline Medications and IVs Current Medications Medications (Trade) Dose Ordered Sig/Rachel Route Start Time Stop Time Status Last Admin (NS Flush) 2 ml UNSCH PRN IV FLUSH 10/11/16 21:15 (NS Flush) 2 ml BID IV FLUSH 10/11/16 21:15 10/17/16 08:57 (Zofran Inj) 4 mg Q6H PRN IV 10/11/16 21:15 10/12/16 03:09 (Lactulose Liq) 30 ml DAILY PO 10/12/16 09:00 10/17/16 08:57 (Dilaudid Pf Inj) 0.5 mg Q3HR PRN IV PUSH 10/11/16 21:15 10/17/16 10:05 (Dilaudid Pf Inj) 0.2 mg Q3HR PRN IV PUSH 10/11/16 21:15 10/14/16 04:51 (Lasix) 40 mg DAILY PO 10/12/16 09:00 10/17/16 08:57 (Neurontin) 100 mg TID PO 10/12/16 09:00 10/17/16 08:57 (Prinivil) 10 mg HS PO 10/12/16 21:00 10/16/16 21:09 (Lopressor) 25 mg BID PO 10/12/16 09:00 10/17/16 08:57 (KCl) 10 meq DAILY PO 10/12/16 09:00 10/17/16 08:57 (Aldactone) 25 mg DAILY PO 10/12/16 09:00 10/17/16 08:57 (Allbee C) 1 tab DAILY PO 10/12/16 09:00 10/17/16 08:57 (Pepcid) 20 mg BID PO 10/12/16 09:00 10/17/16 08:57 (Pravachol) 40 mg DAILY PO 10/12/16 09:00 10/17/16 08:57 (Colace) 100 mg BID PO 10/12/16 09:00 10/17/16 08:57 (Milk Of Magnmode Liq) 30 ml HS PO 10/12/16 21:00 10/16/16 21:09 (NS Flush) 2 ml UNSCH PRN IVF 10/13/16 19:00 (NS Flush) 2 ml BID IVF 10/13/16 21:00 10/16/16 21:00 (Morphine Inj) 2 mg Q2H PRN IV PUSH 10/13/16 19:00 10/14/16 02:35 (Morphine Inj) 4 mg Q2H PRN IV PUSH 10/13/16 19:00 10/14/16 08:19 (Tylenol) 650 mg Q4H PRN PO 10/13/16 19:00 (Percocet 10-325 Mg) 1 tab Q4H PRN PO 10/14/16 12:45 10/17/16 06:57 (Dulcolax Supp) 10 mg DAILY PRN RECTAL 10/16/16 14:45 (Lovenox Inj) 30 mg Q12H SQ 10/17/16 07:45 10/17/16 09:03 Assessment and Plan Problem List: (1) L2 vertebral fracture Status: Acute Plan: POD 4 s/p ORIF L2 fx, Dressing on with no drainage noted (2) Hypertension Status: Chronic Plan: Continue current treatment well controlled (3) A-fib Status: Chronic Plan: Rate controlled. On Lovenox (4) GERD (gastroesophageal reflux disease) Status: Chronic Plan: Continue H2 shanell asymptomatic (5) Diabetes mellitus Status: Chronic Plan: BS all well controlled (6) Constipation Status: Resolved Plan: Positive BM yesterday. (7) Dementia Status: Chronic Plan: Will continue to monitor Assessment and Plan Assessment and plan discussed with Dr. Manning Problem Qualifiers (1) L2 vertebral fracture: Qualified Code: S32.021A - Closed stable burst fracture of second lumbar vertebra, initial encounter (2) A-fib: Qualified Code: I48.2 - Chronic atrial fibrillation (3) Diabetes mellitus: Ninoska Brasher Oct 17, 2016 11:18
--- NOTE | 2016-10-17 11:42 | HHI.PR ---
Subjective Subjective Notes PTD; 6 Patient sitting on the side of the bed, and is being assisting back to bed by staff. Daughter at bedside. Patient remains confused. Objective Vitals/I&O Vital Signs Date Time Temp Pulse Resp B/P Pulse Ox O2 Delivery O2 Flow Rate FiO2 10/17/16 10:44 18 10/17/16 08:15 96 Nasal Cannula 2.00 10/17/16 08:00 96.6 102 108/59 10/14/16 04:03 40 Labs Laboratory Tests Test 10/13/16 10/13/16 10/14/16 10/16/16 07:30 11:08 03:36 04:20 Blood Bank Comment Prothrombin Time 13.0 SEC Prothromb Time International 1.2 RATIO Ratio Phosphorus Level 2.8 MG/DL White Blood Count 7.9 TH/MM3 Red Blood Count 3.67 MIL/MM3 Hemoglobin 10.6 GM/DL Hematocrit 31.5 % Mean Corpuscular Volume 86.0 FL Mean Corpuscular Hemoglobin 28.9 PG Mean Corpuscular Hemoglobin 33.6 % Concent Red Cell Distribution Width 14.2 % Platelet Count 196 TH/MM3 Mean Platelet Volume 8.0 FL Neutrophils (%) (Auto) 67.7 % Lymphocytes (%) (Auto) 19.7 % Monocytes (%) (Auto) 9.6 % Eosinophils (%) (Auto) 2.8 % Basophils (%) (Auto) 0.2 % Neutrophils # (Auto) 5.4 TH/MM3 Lymphocytes # (Auto) 1.6 TH/MM3 Monocytes # (Auto) 0.8 TH/MM3 Eosinophils # (Auto) 0.2 TH/MM3 Basophils # (Auto) 0.0 TH/MM3 CBC Comment DIFF FINAL Differential Comment Sodium Level 139 MEQ/L Potassium Level 4.2 MEQ/L Chloride Level 102 MEQ/L Carbon Dioxide Level 31.8 MEQ/L Anion Gap 5 MEQ/L Blood Urea Nitrogen 19 MG/DL Creatinine 0.74 MG/DL Estimat Glomerular Filtration 102 ML/MIN Rate Random Glucose 107 MG/DL Calcium Level 8.4 MG/DL Magnesium Level 2.4 MG/DL Total Bilirubin 0.7 MG/DL Aspartate Amino Transf 49 U/L (AST/SGOT) Alanine Aminotransferase 18 U/L (ALT/SGPT) Alkaline Phosphatase 64 U/L Total Protein 5.9 GM/DL Albumin 2.6 GM/DL Radiology Last Impressions Chest X-Ray 10/14/16 0600 Signed Impressions: Service Date/Time: Friday, October 14, 2016 05:08 - CONCLUSION: 1. The cardiac silhouette is enlarged in transverse diameter. 2. Left lower lobe atelectasis versus pneumonia. 3. There has been no significant change when compared to the prior exam. Cresencio Parekh MD Lumbar Spine X-Ray 10/13/16 0000 Signed Impressions: Service Date/Time: Thursday, October 13, 2016 13:01 - CONCLUSION: Satisfactory operative appearance Jm Saldivar MD Pelvis X-Ray 10/11/16 1854 Signed Impressions: Service Date/Time: Tuesday, October 11, 2016 19:04 - CONCLUSION: Intact pelvis. Jm Chong MD Lumbar Spine CT 10/11/16 1550 Signed Impressions: Service Date/Time: Tuesday, October 11, 2016 17:24 - CONCLUSION: 1. Moderate to severe compression/burst fracture of L2 that appears acute. Mild retropulsion and mild fracture-associated spinal stenosis, slightly eccentric towards the left. No epidural hematoma. 2. Mild chronic appearing wedge deformity of T12 and L1. 3. Mild multilevel degenerative changes as above. No high-grade foraminal or spinal stenosis demonstrated. Jm Chong MD Lumbar Spine MRI 10/11/16 0000 Signed Impressions: Service Date/Time: Tuesday, October 11, 2016 22:04 - CONCLUSION: 1. Moderate to severe acute compression/burst fracture superiorly of the L2 vertebral body without significant fracture-associated foraminal or spinal stenosis. Very indistinct thecal sac contents from L1 to L2/L3 suggesting intradural blood. No large epidural hematoma. Conus terminus is just below T12/L1 and above the fracture and presumed intrathecal blood. 2. Other findings are chronic/degenerative without significant foraminal or spinal stenosis. Jm Chong MD Head CT 10/11/16 0000 Signed Impressions: Service Date/Time: Tuesday, October 11, 2016 21:09 - CONCLUSION: No bleed or other acute intracranial abnormality. Jm Chong MD Chest CT 10/11/16 0000 Signed Impressions: Service Date/Time: Tuesday, October 11, 2016 21:17 - CONCLUSION: 1. Other than trace bibasilar atelectasis, no acute abnormality demonstrated. 2. Old, healed left rib fractures with callus formation and mild deformity as well as mild, chronic pleural thickening. No acute fracture. 3. Moderate hiatal hernia. 4. Cardiomegaly and coronary artery calcification. Jm Chong MD Cervical Spine CT 10/11/16 0000 Signed Impressions: Service Date/Time: Tuesday, October 11, 2016 21:09 - CONCLUSION: Degenerative changes of the cervical spine as above. No fracture or acute malalignment. Jm Chong MD Abdomen/Pelvis CT 10/11/16 0000 Signed Impressions: Service Date/Time: Tuesday, October 11, 2016 21:17 - CONCLUSION: 1. No visceral organ injury or other acute abnormality within the abdomen or pelvis. 2. Acute L2 burst fracture. 3. Nodular focus posteriorly of the urinary bladder. This is nonspecific. Patient has had previous prostatectomy and a localized area of mildly masslike scarring possible. True mass not excludable by the CT appearance. Direct visualization with cystoscopy recommended when clinically feasible. 4. Bilateral inguinal hernias containing fat and the appendix on the right and containing fat only on the left. No acute complication demonstrated. Jm Chong MD Narrative Exam GENERAL: This is a 81-year-old male who is sitting in a exited the bedside, and staff are assisting him back into bed. SKIN: Warm and dry. HEAD: Atraumatic. Normocephalic. EYES: PERRLA ENT: No nasal bleeding or discharge. Mucous membranes pink and moist. NECK: Trachea midline. No JVD. CARDIOVASCULAR: Regular rate and rhythm. RESPIRATORY: No accessory muscle use. Lungs are clear to auscultation. Breath sounds equal bilaterally. No distress or dyspnea. GASTROINTESTINAL: BS + x 4 quads. Abdomen soft, non-tender, nondistended. Bourne catheter in place to bedside drainage bag with clear yellow urine. MUSCULOSKELETAL: Extremities without cyanosis, or edema. + peripheral pulses x 4 extremities. Warm with good capillary refill and sensation. MAEW. NEUROLOGICAL: Awake and alert. Normal speech and pattern, however remains confused. A/P Problem List: (1) L2 vertebral fracture (2) A-fib Assessment and Plan BOIS FORTE: This is a 81-year-old male who sustained a fall of approximately 10 feet from a ladder. INJURIES: L2 compression/burst fx (mild retropulsion w/ associated spinal stenosis) T12 chronic wedge deformity Procedures: 10/13: ORIF L2 fracture. L4 posterior fixation Consults: CCM. Neurosurgery. Diet: Regular diet. Tolerating po diet. Encourage good po intake with each meal. Pulmonary: Encourage good pulmonary toileting. IS at bedside and pt encouraged to use. Rationale for use explained to patient, and verbalized understanding. PAIN Management: Percocet po. Morphine IV for breakthrough pain. Neurontin po Activity: OOB. PT and OT ordered. TLSO brace when out of bed. GI prophylaxis: Pepcid po Bowel regimen: Colace and MOM. Lactulose daily. Bisacodyl daily . LBM: 10/16. DC Bourne catheter. DVT prophylaxis: Mechanical VTE with SCDs. Chemical management with Lovenox 30 BID. (This has been okay'd by neurosurgery) DC Planning: Case management consulted for assistance with final discharge disposition. Patient will most likely need placement. Consult placed for admission to [facility], and they will evaluate him for admission. Emotional support provided to patient and family at bedside and plan of care discussed. Discussed with RN and at bedside on rounds . Patient is hemodynamically stable and managed on the med/surg floor in a room close to the nursing station due to his confusion. The exam, history, and the medical decision-making described in the above note were completed with the assistance of the mid-level provider. I reviewed and agree with the findings presented. I attest that I had a [id number] encounter with the patient on the same day, and personally performed and documented my assessment and findings in the medical record. Problem Qualifiers (1) L2 vertebral fracture: Qualified Code: S32.021A - Closed stable burst fracture of second lumbar vertebra, initial encounter (2) A-fib: Qualified Code: I48.2 - Chronic atrial fibrillation Brittany Young Oct 17, 2016 11:42 Jensen Sutton MD Oct 25, 2016 13:00
--- NOTE | 2016-10-17 12:56 | HHI.NSPN ---
(Kiara Luna) Note Status Status: Progress Note (Kiara Luna) Interval History Interval History This is a 81 year old male who was up a ladder trimming some trees when the ladder swayed causing him to fall. He estimates that he fell about 10 feet. He is not sure if he landed on his back or on his buttocks. Sudden onset of low back pain. No LOC. N sezire activity. No tongue bitting. No incontnence of stool or urine. He comes to the emergency department complaining of severe low back pain. His pain is located in the upper lumbar and thoracolumbar region. Severity 10/10. He describes a sharp, stabbing pain. he has numbness in his lower extremities and feet, which is chronic. CT lumbar spine showed a L2 fracture. Neurosurgical consultation was requested. 10/12: pain stable when not moving. denies new neuro complaint. MRI L spine completed. Received FFP last night as he was previously anticoagulated on Coumadin. 10/14: POD 1 s/p ORIF L2 fx, mildly confused, required CPAP last night 10/15: POD 2, stable confusion, coughing up phlegm daughter reports has chronic hx of phlegm in the am, lumbar pain with movement 10/16: POD 3, stable confusion, coughing improved today 10/17: POD 4, moderate surgical pain (Kiara Luna) Labs, Micro, & Vital Signs Results Date Time Temp Pulse Resp B/P Pulse Ox O2 Delivery O2 Flow Rate FiO2 10/17/16 10:44 18 10/17/16 08:15 96 Nasal Cannula 2.00 10/17/16 08:00 96.6 102 18 108/59 98 10/17/16 07:57 18 10/17/16 00:40 95.8 71 18 140/66 97 10/16/16 22:00 94 10/16/16 20:00 96 10/16/16 20:00 98.4 97 17 155/77 96 10/16/16 19:33 97 Nasal Cannula 3.00 10/16/16 19:00 96 Nasal Cannula 4.00 Humidified 10/16/16 18:00 94 10/16/16 16:00 98.2 98 23 133/69 92 10/16/16 16:00 98 10/16/16 14:00 93 10/17/16 07:00 Intake Total 1225 ml Output Total 1305 ml Balance -80 ml Constitutional Vital Signs Date Time Temp Pulse Resp B/P Pulse Ox O2 Delivery O2 Flow Rate FiO2 10/17/16 10:44 18 10/17/16 08:15 96 Nasal Cannula 2.00 10/17/16 08:00 96.6 102 18 108/59 98 10/17/16 07:57 18 10/17/16 00:40 95.8 71 18 140/66 97 10/16/16 22:00 94 10/16/16 20:00 96 10/16/16 20:00 98.4 97 17 155/77 96 10/16/16 19:33 97 Nasal Cannula 3.00 10/16/16 19:00 96 Nasal Cannula 4.00 Humidified 10/16/16 18:00 94 10/16/16 16:00 98.2 98 23 133/69 92 10/16/16 16:00 98 10/16/16 14:00 93 10/17/16 07:00 Intake Total 1225 ml Output Total 1305 ml Balance -80 ml (Kiara Luna) Review of Systems/Exam Exam Mr. Terry is alert, follows simple commands, conversant. Resting in bed, appears comfortable. Cranial nerve examination: pupils equal, round, and reactive to light. Facial motor are normal and symmetrical. Neck is soft and supple. Motor: moves major muscle groups of lower extremities well, proximal strength continues to be limited due to surgical pain bilateral plantar flexion response. no ankle clonus (Kiara Luna) Medications Current Medications Current Medications Medications (Trade) Dose Ordered Sig/Rachel Route PRN Reason Start Time Stop Time Status Last Admin Dose Admin Sodium Chloride (NS Flush) 2 ml UNSCH PRN IV FLUSH FLUSH AFTER USING IV ACCESS 10/11/16 21:15 Sodium Chloride (NS Flush) 2 ml BID IV FLUSH 10/11/16 21:15 10/17/16 08:57 Ondansetron HCl (Zofran Inj) 4 mg Q6H PRN IV NAUSEA OR VOMITING 10/11/16 21:15 4/13/17 03:09 Lactulose (Lactulose Liq) 30 ml DAILY PO 10/12/16 09:00 10/17/16 08:57 Hydromorphone HCl (Dilaudid Pf Inj) 0.5 mg Q3HR PRN IV PUSH PAIN SCALE 5 TO 10 10/11/16 21:15 10/17/16 10:05 Hydromorphone HCl (Dilaudid Pf Inj) 0.2 mg Q3HR PRN IV PUSH PAIN SCALE 1 TO 5 10/11/16 21:15 10/14/16 04:51 Furosemide (Lasix) 40 mg DAILY PO 10/12/16 09:00 10/17/16 08:57 Gabapentin (Neurontin) 100 mg TID PO 10/12/16 09:00 10/17/16 12:27 Lisinopril (Prinivil) 10 mg HS PO 10/12/16 21:00 10/16/16 21:09 Metoprolol Tartrate (Lopressor) 25 mg BID PO 10/12/16 09:00 10/17/16 08:57 Potassium Chloride (KCl) 10 meq DAILY PO 10/12/16 09:00 10/17/16 08:57 Spironolactone (Aldactone) 25 mg DAILY PO 10/12/16 09:00 10/17/16 08:57 Vitamin B Complex/ Vitamin C (Allbee C) 1 tab DAILY PO 10/12/16 09:00 10/17/16 08:57 Famotidine (Pepcid) 20 mg BID PO 10/12/16 09:00 10/17/16 08:57 Pravastatin Sodium (Pravachol) 40 mg DAILY PO CM 10/12/16 09:00 10/17/16 08:57 Docusate Sodium (Colace) 100 mg BID PO 10/12/16 09:00 10/17/16 08:57 Magnesium Hydroxide (Milk Of Magnesia Liq) 30 ml HS PO 10/12/16 21:00 10/16/16 21:09 IV Flush (NS Flush) 2 ml UNSCH PRN IVF FLUSH AFTER USING IV ACCESS 10/13/16 19:00 IV Flush (NS Flush) 2 ml BID IVF 10/13/16 21:00 10/16/16 21:00 Morphine Sulfate (Morphine Inj) 2 mg Q2H PRN IV PUSH PAIN SCALE 1 TO 6 10/13/16 19:00 10/14/16 02:35 Morphine Sulfate (Morphine Inj) 4 mg Q2H PRN IV PUSH PAIN SCALE 7 TO 10 10/13/16 19:00 10/14/16 08:19 Acetaminophen (Tylenol) 650 mg Q4H PRN PO TEMPERATURE > 101.5 F 10/13/16 19:00 Oxycodone/ Acetaminophen (Percocet 10-325 Mg) 1 tab Q4H PRN PO PAIN SCALE 1 TO 7 10/14/16 12:45 10/17/16 12:28 Bisacodyl (Dulcolax Supp) 10 mg DAILY PRN RECTAL CONSTIPATION 10/16/16 14:45 Enoxaparin Sodium (Lovenox Inj) 30 mg Q12H SQ 10/17/16 07:45 10/17/16 09:03 (Kiara Luna) Medical Decision Making MDM Remarks 81 y/o male s/p fall off ladder presents with intractable lumbar pain,with acute L2 burst fracture with minimal canal retropulsion, s/p ORIF L2 fracture with T12 to L4 posterolateral fixation 10/13/16, lumbar pain slowly improving, neuro stable (Kiara Luna) Plan Plan Remarks cont current care, cont pain control prn cont daily PT, don TLSO when out of bed, encouraged mobilization - rehab efforts started on lovenox for dvt proph dc sommer dc planning to rehab (Kiara Luna) Attending Statement The exam, history, and the medical decision-making described in the above note were completed with the assistance of the mid-level provider. I reviewed and agree with the findings presented. I attest that I had a [id number] encounter with the patient on the same day, and personally performed and documented my assessment and findings in the medical record. (Mj Perez MD) Kiara Luna Oct 17, 2016 12:56 Mj Perez MD Oct 18, 2016 16:14
[2016-10-17] MEDS: LISINOPRIL 10 MG TAB PO SCH (20:49)
[2016-10-17] MEDS: MAGNESIUM HYDROXIDE SUSP 30 ML CUP PO SCH (20:50)
[2016-10-18 00:24] VITALS: BP 115/53; PULSE 95; RESP 18; TEMP 96.1; O2SAT 97
[2016-10-18] MEDS: oxyCODONE/ACETAMINOPHEN 10 MG/325 MG TAB PO PRN ×2 (01:48→10:09)
[2016-10-18] MEDS: INSULIN NovoLIN REGULAR SUPPLEMENTAL SCALE SQ SCH ×2 (06:05→10:52)
--- NOTE | 2016-10-18 07:05 | HHI.PR ---
Subjective Remarks Patient is alert. Denies any CP or SOB. Reports discomfort with movement. Objective Vital Signs Date Time Temp Pulse Resp B/P Pulse Ox O2 Delivery O2 Flow Rate FiO2 10/18/16 00:24 96.1 95 18 115/53 97 10/17/16 20:27 97.7 98 16 103/70 97 10/17/16 19:22 Nasal Cannula 2.00 10/17/16 18:22 15 10/17/16 16:46 97.4 93 16 118/77 97 10/17/16 16:45 98 Nasal Cannula 2.00 10/17/16 12:00 96.6 74 18 112/56 98 10/17/16 10:44 18 10/17/16 08:15 96 Nasal Cannula 2.00 10/17/16 08:00 96.6 102 18 108/59 98 I/O 10/17/16 10/17/16 10/17/16 10/18/16 10/18/16 10/18/16 07:00 15:00 23:00 07:00 15:00 23:00 Intake Total 360 ml 480 ml 480 ml 720 ml Output Total 250 ml Balance 110 ml 480 ml 480 ml 720 ml Intake Oral 360 ml 480 ml 480 ml 720 ml Output Urine Total 250 ml # Voids 0 0 2 # Bowel Movements 0 0 0 0 Result Diagram: 10/16/1641910/16/16419 Procedures stabilazation of lumbar burst fx Objective Remarks GENERAL: Very pleasant elderly male. SKIN: Warm and dry.Dressing dry and intact on back HEAD: Atraumatic. Normocephalic. ENT: No nasal bleeding or discharge. Mucous membranes pink and moist. Dentures in place NECK: Trachea midline. CARDIOVASCULAR: irregular, afib on monitor. No murmurs rubs or gallops. No JVD. RESPIRATORY: No accessory muscle use. Clear to auscultation. Breath sounds equal bilaterally. GASTROINTESTINAL: Abdomen soft, non-tender, nondistended. bowel sounds present. MUSCULOSKELETAL: Extremities without clubbing, cyanosis, or edema. Well perfused. NEUROLOGICAL: Awake and alert. No obvious cranial nerve deficits. Sensation decreased in feet bilaterally up to ankles. Normal sensation upper leg.Strength 5/5 throughout. Oriented to self, hospital, year, president. Has difficulty with memory and appears to have mild dementia; family states he is at baseline Medications and IVs Current Medications Medications (Trade) Dose Ordered Sig/Rachel Route Start Time Stop Time Status Last Admin (NS Flush) 2 ml UNSCH PRN IV FLUSH 10/11/16 21:15 (NS Flush) 2 ml BID IV FLUSH 10/11/16 21:15 10/17/16 20:50 (Zofran Inj) 4 mg Q6H PRN IV 10/11/16 21:15 10/12/16 03:09 (Lactulose Liq) 30 ml DAILY PO 10/12/16 09:00 10/17/16 08:57 (Dilaudid Pf Inj) 0.5 mg Q3HR PRN IV PUSH 10/11/16 21:15 10/17/16 10:05 (Dilaudid Pf Inj) 0.2 mg Q3HR PRN IV PUSH 10/11/16 21:15 10/14/16 04:51 (Lasix) 40 mg DAILY PO 10/12/16 09:00 10/17/16 08:57 (Neurontin) 100 mg TID PO 10/12/16 09:00 10/17/16 17:07 (Prinivil) 10 mg HS PO 10/12/16 21:00 10/17/16 20:49 (Lopressor) 25 mg BID PO 10/12/16 09:00 10/17/16 20:51 (KCl) 10 meq DAILY PO 10/12/16 09:00 10/17/16 08:57 (Aldactone) 25 mg DAILY PO 10/12/16 09:00 10/17/16 08:57 (Allbee C) 1 tab DAILY PO 10/12/16 09:00 10/17/16 08:57 (Pepcid) 20 mg BID PO 10/12/16 09:00 10/17/16 20:50 (Pravachol) 40 mg DAILY PO 10/12/16 09:00 10/17/16 08:57 (Colace) 100 mg BID PO 10/12/16 09:00 10/17/16 20:51 (Milk Of Magnesia Liq) 30 ml HS PO 10/12/16 21:00 10/17/16 20:50 (NS Flush) 2 ml UNSCH PRN IVF 10/13/16 19:00 (NS Flush) 2 ml BID IVF 10/13/16 21:00 10/17/16 20:53 (Morphine Inj) 2 mg Q2H PRN IV PUSH 10/13/16 19:00 10/14/16 02:35 (Morphine Inj) 4 mg Q2H PRN IV PUSH 10/13/16 19:00 10/14/16 08:19 (Tylenol) 650 mg Q4H PRN PO 10/13/16 19:00 (Percocet 10-325 Mg) 1 tab Q4H PRN PO 10/14/16 12:45 10/18/16 01:48 (Dulcolax Supp) 10 mg DAILY PRN RECTAL 10/16/16 14:45 (Lovenox Inj) 30 mg Q12H SQ 10/17/16 07:45 10/17/16 20:50 Assessment and Plan Problem List: (1) L2 vertebral fracture Status: Acute Plan: POD 5 s/p ORIF L2 fx, Dressing on with no drainage noted (2) Hypertension Status: Chronic Plan: Continue current treatment well controlled 115/53 (3) A-fib Status: Chronic Plan: Rate controlled in the 90's. On Lovenox (4) GERD (gastroesophageal reflux disease) Status: Chronic Plan: Continue H2 shanell asymptomatic (5) Diabetes mellitus Status: Chronic Plan: BS all well controlled all under 200 (6) Constipation Status: Resolved Plan: Positive BM yesterday on the . Miralax and senna added (7) Dementia Status: Chronic Plan: Will continue to monitor Assessment and Plan Assessment and plan discussed with Dr. Manning Labs ordered and pending Discussed Condition With Nursing Discharge Planning rehab Problem Qualifiers (1) L2 vertebral fracture: Qualified Code: S32.021A - Closed stable burst fracture of second lumbar vertebra, initial encounter (2) A-fib: Qualified Code: I48.2 - Chronic atrial fibrillation (3) Diabetes mellitus: Ninoska Brasher Oct 18, 2016 07:05
[2016-10-18] MEDS ORDERED: BISACODYL EC 5 MG TABEC PO ONE (07:45)
[2016-10-18] MEDS ORDERED: BISACODYL 10 MG SUPP RECTAL ONE ×2 (07:45→12:00)
[2016-10-18 08:00] VITALS: BP 118/70; PULSE 73; RESP 18; TEMP 96.1; O2SAT 98
[2016-10-18 08:05] VITALS: O2SAT 98
[2016-10-18] MEDS: POTASSIUM CHLORIDE 10 MEQ CONTROLLED RELEASE TAB PO SCH (08:26)
[2016-10-18] MEDS: METOPROLOL TARTRATE 25 MG TAB PO SCH (08:26)
[2016-10-18] MEDS: LACTULOSE SYRUP 20 GM/30 ML CUP PO SCH (08:26)
[2016-10-18] MEDS: FUROSEMIDE 40 MG TAB PO SCH (08:27)
[2016-10-18] MEDS: GABAPENTIN 100 MG CAP PO SCH ×2 (08:27→12:22)
[2016-10-18] MEDS: PRAVASTATIN SOD 40 MG TAB PO SCH (08:27)
[2016-10-18] MEDS: ENOXAPARIN SODIUM 30 MG/0.3 ML SYRINGE SQ SCH (08:33)
[2016-10-18 08:54] LABS: AUTOMATED NEUTROPHIL # 5.9 TH/MM3 (1.8-7.7); BASOPHIL % 0.3 % (0.0-2.0); EOSINOPHIL # 0.3 TH/MM3 (0-0.4); EOSINOPHIL % 2.9 % (0.0-4.0); HEMATOCRIT 34.1 % (39.0-51.0); HEMO FLAGS DIFF FINAL; LYMPH % 19.4 % (9.0-44.0); LYMPHOCYTE # 1.7 TH/MM3 (1.0-4.8); MEAN CELL VOLUME 85.8 FL (80.0-100.0); MEAN CORPUSCULAR HEMOGLOBIN 29.1 PG (27.0-34.0); MEAN CORPUSCULAR HGB CONC 33.9 % (32.0-36.0); MONO % 8.9 % (0.0-8.0); NEUT % 68.5 % (16.0-70.0); PLATELET COUNT 277 TH/MM3 (150-450); RED BLOOD COUNT 3.98 MIL/MM3 (4.50-5.90); RED CELL DISTRIBUTION WIDTH 14.3 % (11.6-17.2); WHITE BLOOD COUNT 8.6 TH/MM3 (4.0-11.0)
[2016-10-18] MEDS: SODIUM CHLORIDE 0.9% FLUSH 10 ML FLUSH IV FLUSH SCH (09:00)
[2016-10-18] MEDS ORDERED: DOCUSATE SODIUM 50 MG/SENNA 8.6 MG TAB PO SCH (09:00)
[2016-10-18] MEDS: FAMOTIDINE 20 MG TAB PO SCH (09:00)
[2016-10-18] MEDS: SODIUM CHLORIDE 0.9% FLUSH 5 ML FLUSH IVF SCH (09:00)
[2016-10-18] MEDS ORDERED: POLYETHYLENE GLYCOL 17 GM PKG PO SCH (09:00)
[2016-10-18 09:08] LABS: BICARBONATE 29.6 MEQ/L (21.0-32.0)
[2016-10-18] MEDS ORDERED: MAGNESIUM CITRATE SOLN 300 ML BTL PO ONE (09:30)
[2016-10-18] MEDS: SPIRONOLACTONE 25 MG TAB PO SCH (10:07)
[2016-10-18] MEDS: VITAMIN B COMPLEX/VIT C TAB PO SCH (10:07)
--- NOTE | 2016-10-18 10:10 | HHI.NSPN ---
(Kiara Luna) Note Status Status: Progress Note (Kiara Luna) Interval History Interval History This is a 81 year old male who was up a ladder trimming some trees when the ladder swayed causing him to fall. He estimates that he fell about 10 feet. He is not sure if he landed on his back or on his buttocks. Sudden onset of low back pain. No LOC. N sezire activity. No tongue bitting. No incontnence of stool or urine. He comes to the emergency department complaining of severe low back pain. His pain is located in the upper lumbar and thoracolumbar region. Severity 10/10. He describes a sharp, stabbing pain. he has numbness in his lower extremities and feet, which is chronic. CT lumbar spine showed a L2 fracture. Neurosurgical consultation was requested. 10/12: pain stable when not moving. denies new neuro complaint. MRI L spine completed. Received FFP last night as he was previously anticoagulated on Coumadin. 10/14: POD 1 s/p ORIF L2 fx, mildly confused, required CPAP last night 10/15: POD 2, stable confusion, coughing up phlegm daughter reports has chronic hx of phlegm in the am, lumbar pain with movement 10/16: POD 3, stable confusion, coughing improved today 10/17: POD 4, moderate surgical pain 10/18: POD 5, c/o constipation and abdominal discomfort. persistent moderate surgical pain with movement, sat up in chair yesterday (Kiara Luna) Labs, Micro, & Vital Signs Results Date Time Temp Pulse Resp B/P Pulse Ox O2 Delivery O2 Flow Rate FiO2 10/18/16 08:00 96.1 73 18 118/70 98 10/18/16 00:24 96.1 95 18 115/53 97 10/17/16 20:27 97.7 98 16 103/70 97 10/17/16 19:22 Nasal Cannula 2.00 10/17/16 18:22 15 10/17/16 16:46 97.4 93 16 118/77 97 10/17/16 16:45 98 Nasal Cannula 2.00 10/17/16 12:00 96.6 74 18 112/56 98 10/17/16 10:44 18 10/18/16 07:00 Intake Total 1680 ml Balance 1680 ml Constitutional Vital Signs Date Time Temp Pulse Resp B/P Pulse Ox O2 Delivery O2 Flow Rate FiO2 10/18/16 08:00 96.1 73 18 118/70 98 10/18/16 00:24 96.1 95 18 115/53 97 10/17/16 20:27 97.7 98 16 103/70 97 10/17/16 19:22 Nasal Cannula 2.00 10/17/16 18:22 15 10/17/16 16:46 97.4 93 16 118/77 97 10/17/16 16:45 98 Nasal Cannula 2.00 10/17/16 12:00 96.6 74 18 112/56 98 10/17/16 10:44 18 10/18/16 07:00 Intake Total 1680 ml Balance 1680 ml (Kiara Luna) Review of Systems/Exam Exam Mr. Terry is alert, follows simple commands, conversant. Surgical wound healing well, clean and dry. New Prim[place] dressing placed. Cranial nerve examination: pupils equal, round, and reactive to light. Facial motor are normal and symmetrical. Neck is soft and supple. Motor: moves major muscle groups of lower extremities well, proximal strength continues to be limited due to surgical pain, 5/5 distal LEs bilateral plantar flexion response. no ankle clonus Abdomen: full, nontender to palpate (Kiara Luna) Medications Current Medications Current Medications Medications (Trade) Dose Ordered Sig/Rachel Route PRN Reason Start Time Stop Time Status Last Admin Dose Admin Sodium Chloride (NS Flush) 2 ml UNSCH PRN IV FLUSH FLUSH AFTER USING IV ACCESS 10/11/16 21:15 Sodium Chloride (NS Flush) 2 ml BID IV FLUSH 10/11/16 21:15 10/17/16 20:50 Ondansetron HCl (Zofran Inj) 4 mg Q6H PRN IV NAUSEA OR VOMITING 10/11/16 21:15 10/12/16 03:09 Lactulose (Lactulose Liq) 30 ml DAILY PO 10/12/16 09:00 10/18/16 08:26 Hydromorphone HCl (Dilaudid Pf Inj) 0.5 mg Q3HR PRN IV PUSH PAIN SCALE 5 TO 10 10/11/16 21:15 10/17/16 10:05 Hydromorphone HCl (Dilaudid Pf Inj) 0.2 mg Q3HR PRN IV PUSH PAIN SCALE 1 TO 5 10/11/16 21:15 10/14/16 04:51 Furosemide (Lasix) 40 mg DAILY PO 10/12/16 09:00 10/18/16 08:27 Gabapentin (Neurontin) 100 mg TID PO 10/12/16 09:00 10/18/16 08:27 Lisinopril (Prinivil) 10 mg HS PO 10/12/16 21:00 10/17/16 20:49 Metoprolol Tartrate (Lopressor) 25 mg BID PO 10/12/16 09:00 10/18/16 08:26 Potassium Chloride (KCl) 10 meq DAILY PO 10/12/16 09:00 10/18/16 08:26 Spironolactone (Aldactone) 25 mg DAILY PO 10/12/16 09:00 10/18/16 10:07 Vitamin B Complex/ Vitamin C (Allbee C) 1 tab DAILY PO 10/12/16 09:00 10/18/16 10:07 Famotidine (Pepcid) 20 mg BID PO 10/12/16 09:00 10/17/16 20:50 Pravastatin Sodium (Pravachol) 40 mg DAILY PO CM 10/12/16 09:00 10/18/16 08:27 Magnesium Hydroxide (Milk Of Magnmode Liq) 30 ml HS PO 10/12/16 21:00 10/17/16 20:50 IV Flush (NS Flush) 2 ml UNSCH PRN IVF FLUSH AFTER USING IV ACCESS 10/13/16 19:00 IV Flush (NS Flush) 2 ml BID IVF 10/13/16 21:00 10/17/16 20:53 Morphine Sulfate (Morphine Inj) 2 mg Q2H PRN IV PUSH PAIN SCALE 1 TO 6 10/13/16 19:00 10/14/16 02:35 Morphine Sulfate (Morphine Inj) 4 mg Q2H PRN IV PUSH PAIN SCALE 7 TO 10 10/13/16 19:00 10/14/16 08:19 Acetaminophen (Tylenol) 650 mg Q4H PRN PO TEMPERATURE > 101.5 F 10/13/16 19:00 Oxycodone/ Acetaminophen (Percocet 10-325 Mg) 1 tab Q4H PRN PO PAIN SCALE 1 TO 7 10/14/16 12:45 10/18/16 10:09 Bisacodyl (Dulcolax Supp) 10 mg DAILY PRN RECTAL CONSTIPATION 10/16/16 14:45 Enoxaparin Sodium (Lovenox Inj) 30 mg Q12H SQ 10/17/16 07:45 10/18/16 08:33 Senna/Docusate Sodium (Gracia-Colace) 2 tab DAILY PO 10/18/16 09:00 10/18/16 08:29 Polyethylene Glycol (Miralax) 17 gm DAILY PO 10/18/16 09:00 10/18/16 08:30 Magnesium Citrate (Citroma Liq) 300 ml ONCE ONCE PO 10/18/16 09:30 10/18/16 09:31 UNV (Kiara Luna) Medical Decision Making MDM Remarks 81 y/o male s/p fall off ladder presents with intractable lumbar pain,with acute L2 burst fracture with minimal canal retropulsion, s/p ORIF L2 fracture with T12 to L4 posterolateral fixation 10/13/16, lumbar pain slowly improving, neuro stable (Kiara Luna) Plan Plan Remarks mag citrate for constipation dw pt weaning down narcotics, cont daily PT, don TLSO when out of bed, encouraged mobilization - rehab efforts (Kiara Luna) Attending Statement The exam, history, and the medical decision-making described in the above note were completed with the assistance of the mid-level provider. I reviewed and agree with the findings presented. I attest that I had a [id number] encounter with the patient on the same day, and personally performed and documented my assessment and findings in the medical record. (Mj Perez MD) Kiara Luna Oct 18, 2016 10:10 Mj Perez MD Oct 18, 2016 16:18
[2016-10-18] MEDS ORDERED: POLY17S PO (11:11)
[2016-10-18] MEDS ORDERED: ENOX30P SQ (11:11)
[2016-10-18] MEDS ORDERED: LACT10SO PO (11:11)
[2016-10-18] MEDS ORDERED: OXYC1TAB36 PO (11:11)
[2016-10-18] MEDS ORDERED: SENN1TAB PO (11:11)
[2016-10-18] MEDS ORDERED: MILKSUS PO (11:11)
[2016-10-18] MEDS ORDERED: BISA10R RECTAL (11:11)
--- NOTE | 2016-10-18 11:53 | HHI.DS ---
Discharge Summary Admission Date Oct 11, 2016 at 18:59 Discharge Date: Oct 18, 2016 Admitting Diagnosis L2 burst fx (1) L2 vertebral fracture Diagnosis: Principal (2) A-fib Diagnosis: Principal Brief History Fall from a ladder. CBC/BMP: 10/18/16 0800 10/18/16 0800 Significant Findings Laboratory Tests Test 10/16/16 10/18/16 04:20 08:00 Red Blood Count 3.67 MIL/MM3 3.98 MIL/MM3 (4.50-5.90) (4.50-5.90) Hemoglobin 10.6 GM/DL 11.6 GM/DL (13.0-17.0) (13.0-17.0) Hematocrit 31.5 % 34.1 % (39.0-51.0) (39.0-51.0) Monocytes (%) (Auto) 9.6 % (0.0-8.0) 8.9 % (0.0-8.0) Blood Urea Nitrogen 19 MG/DL (7-18) 23 MG/DL (7-18) Random Glucose 107 MG/DL (74-106) Calcium Level 8.4 MG/DL (8.5-10.1) Aspartate Amino Transf 49 U/L (15-37) (AST/SGOT) Total Protein 5.9 GM/DL (6.4-8.2) Albumin 2.6 GM/DL (3.4-5.0) Imaging Last Impressions Chest X-Ray 10/14/16 0600 Signed Impressions: Service Date/Time: Friday, October 14, 2016 05:08 - CONCLUSION: 1. The cardiac silhouette is enlarged in transverse diameter. 2. Left lower lobe atelectasis versus pneumonia. 3. There has been no significant change when compared to the prior exam. Cresencio Parekh MD Lumbar Spine X-Ray 10/13/16 0000 Signed Impressions: Service Date/Time: Thursday, October 13, 2016 13:01 - CONCLUSION: Satisfactory operative appearance Jm Saldivar MD Pelvis X-Ray 10/11/16 1854 Signed Impressions: Service Date/Time: Tuesday, October 11, 2016 19:04 - CONCLUSION: Intact pelvis. Jm Chong MD Lumbar Spine CT 10/11/16 1550 Signed Impressions: Service Date/Time: Tuesday, October 11, 2016 17:24 - CONCLUSION: 1. Moderate to severe compression/burst fracture of L2 that appears acute. Mild retropulsion and mild fracture-associated spinal stenosis, slightly eccentric towards the left. No epidural hematoma. 2. Mild chronic appearing wedge deformity of T12 and L1. 3. Mild multilevel degenerative changes as above. No high-grade foraminal or spinal stenosis demonstrated. Jm Chong MD Lumbar Spine MRI 10/11/16 0000 Signed Impressions: Service Date/Time: Tuesday, October 11, 2016 22:04 - CONCLUSION: 1. Moderate to severe acute compression/burst fracture superiorly of the L2 vertebral body without significant fracture-associated foraminal or spinal stenosis. Very indistinct thecal sac contents from L1 to L2/L3 suggesting intradural blood. No large epidural hematoma. Conus terminus is just below T12/L1 and above the fracture and presumed intrathecal blood. 2. Other findings are chronic/degenerative without significant foraminal or spinal stenosis. Jm Chong MD Head CT 10/11/16 0000 Signed Impressions: Service Date/Time: Tuesday, October 11, 2016 21:09 - CONCLUSION: No bleed or other acute intracranial abnormality. Jm Chong MD Chest CT 10/11/16 0000 Signed Impressions: Service Date/Time: Tuesday, October 11, 2016 21:17 - CONCLUSION: 1. Other than trace bibasilar atelectasis, no acute abnormality demonstrated. 2. Old, healed left rib fractures with callus formation and mild deformity as well as mild, chronic pleural thickening. No acute fracture. 3. Moderate hiatal hernia. 4. Cardiomegaly and coronary artery calcification. Jm Chong MD Cervical Spine CT 10/11/16 0000 Signed Impressions: Service Date/Time: Tuesday, October 11, 2016 21:09 - CONCLUSION: Degenerative changes of the cervical spine as above. No fracture or acute malalignment. Jm Chong MD Abdomen/Pelvis CT 10/11/16 0000 Signed Impressions: Service Date/Time: Tuesday, October 11, 2016 21:17 - CONCLUSION: 1. No visceral organ injury or other acute abnormality within the abdomen or pelvis. 2. Acute L2 burst fracture. 3. Nodular focus posteriorly of the urinary bladder. This is nonspecific. Patient has had previous prostatectomy and a localized area of mildly masslike scarring possible. True mass not excludable by the CT appearance. Direct visualization with cystoscopy recommended when clinically feasible. 4. Bilateral inguinal hernias containing fat and the appendix on the right and containing fat only on the left. No acute complication demonstrated. Jm Chong MD PE at Discharge GENERAL: This is a 81-year-old male who is sitting in a exited the bedside, and staff are assisting him back into bed. SKIN: Warm and dry. HEAD: Atraumatic. Normocephalic. EYES: PERRLA ENT: No nasal bleeding or discharge. Mucous membranes pink and moist. NECK: Trachea midline. No JVD. CARDIOVASCULAR: Regular rate and rhythm. RESPIRATORY: No accessory muscle use. Lungs are clear to auscultation. Breath sounds equal bilaterally. No distress or dyspnea. GASTROINTESTINAL: BS + x 4 quads. Abdomen soft, non-tender, nondistended. Bourne catheter in place to bedside drainage bag with clear yellow urine. MUSCULOSKELETAL: Extremities without cyanosis, or edema. + peripheral pulses x 4 extremities. Warm with good capillary refill and sensation. MAEW. NEUROLOGICAL: Awake and alert. Normal speech and pattern, however remains confused. Hospital Course [place]: This is a 81-year-old male who sustained a fall of approximately 10 feet from a ladder. INJURIES: L2 compression/burst fx (mild retropulsion w/ associated spinal stenosis) T12 chronic wedge deformity Procedures: 10/13: ORIF L2 fracture. L4 posterior fixation Consults: [facility]. Neurosurgery. The patient is now tolerating a po diet. Eating and drinking well. Pain is being managed well with PO pain medications, all current hospital medications will continue while at [facility] Pt is having regular bowel movements, and have recommended to patient to continue with stool softeners while taking narcotic pain medications to prevent constipation. Pt has been participating in PT and OT while admitted at [facility] and has been ambulating with their assistance and independently . PT and OT will continue at [facility]. All follow up appointments have been provided and discussed with the patient. It is recommended that the patient keeps all his follow up appointments for continued recovery. Therefore, the patient is stable to be safely discharged to [facility] from a trauma surgery standpoint. Thank you for allowing us to participate in his care. We wish Zeeshan the best in his recovery. Pt Condition on Discharge: Stable Discharge Disposition: Rehab Inpatient Discharge Instructions DIET: Follow Instructions for: As Tolerated, No Restrictions Activities you can perform: Regular-No Restrictions Activities to Avoid: Driving for 24 hrs, Concussion Sports, Contact Sports, Lifting/Bending, Strenuous Activity Other Activity Instructions: OOB with TLSO brace Brittany Young Oct 18, 2016 11:53
[2016-10-18 12:00] VITALS: BP 131/88; PULSE 80; RESP 18; TEMP 96.4; O2SAT 93
[2016-10-27] MEDS ORDERED: GETGO ROLLING W1 MI1 (11:20)
[2016-10-30] MEDS ORDERED: COMMODE 3-IN-11 MIS (12:52)
[2016-11-03] MEDS ORDERED: COUM2.5T PO (08:23)
[2016-11-03] MEDS ORDERED: OXYC1TAB36 PO (08:23)
[2016-11-03] MEDS ORDERED: K-TA10TA PO (08:23)
[2016-11-03] MEDS ORDERED: TAMS5CAP PO (08:23)
[2016-11-03] MEDS ORDERED: SENN1TAB PO (08:23)
[2016-11-03] MEDS ORDERED: METO25TA3 PO (08:23)
[2016-11-03] MEDS ORDERED: GABA100C4 PO (08:23)
[2016-11-03] MEDS ORDERED: METF500 PO (08:23)
[2016-11-03] MEDS ORDERED: SIMV20TA PO (08:23)
[2016-11-03] MEDS ORDERED: RANI150T PO (08:23)
[2016-11-03] MEDS ORDERED: VITATAB11 PO (08:23)
[2016-11-03] MEDS ORDERED: COUM4TAB PO (08:23)
[2016-11-17] MEDS ORDERED: CEPH-460 PO ×2 (12:30→13:50)
[2016-11-29] MEDS ORDERED: OXYC1TAB36 PO (13:31)
[2016-12-05] MEDS ORDERED: FURO1TAB62 PO (10:05)
== END 2016-10-18 13:32 | DRG 460 ==
LOC: NEPC 15:30 → NEDA 18:59 → N03B 10-12 05:54 → N06A 10-16 22:25
PROVIDERS: ADMIT Surgery Trauma Surgery; ATTEND Surgery Trauma Surgery
PROC: 30233K1 Transfusion of Nonautologous Frozen Plasma into Peripheral Vein, Percutaneous Approach (ICD-10-PCS; 2016-10-12)
PROC: 0QS004Z Reposition Lumbar Vertebra with Internal Fixation Device, Open Approach (ICD-10-PCS; 2016-10-13)
PROC: 0QB20ZZ Excision of Right Pelvic Bone, Open Approach (ICD-10-PCS; 2016-10-13)
PROC: 5A09357 Assistance with Respiratory Ventilation, Less than 24 Consecutive Hours, Continuous Positive Airway Pressure (ICD-10-PCS; 2016-10-13)
PROC: 0RGA071 Fusion of Thoracolumbar Vertebral Joint with Autologous Tissue Substitute, Posterior Approach, Posterior Column, Open Approach (ICD-10-PCS; principal; 2016-10-13 11:45)
DX: S32.022A Unstable burst fracture of second lumbar vertebra, initial encounter for closed fracture (principal); E11.42 Type 2 diabetes mellitus with diabetic polyneuropathy; F03.90 Unspecified dementia, unspecified severity, without behavioral disturbance, psychotic disturbance, mood disturbance, and anxiety; J98.11 Atelectasis; I10 Essential (primary) hypertension; I48.2 Chronic atrial fibrillation; E78.00 Pure hypercholesterolemia, unspecified; K21.9 Gastro-esophageal reflux disease without esophagitis; G47.30 Sleep apnea, unspecified; M48.06 Spinal stenosis, lumbar region; E78.5 Hyperlipidemia, unspecified; K40.20 Bilateral inguinal hernia, without obstruction or gangrene, not specified as recurrent; K44.9 Diaphragmatic hernia without obstruction or gangrene; M43.8X4 Other specified deforming dorsopathies, thoracic region; D72.823 Leukemoid reaction; R79.1 Abnormal coagulation profile; I51.7 Cardiomegaly; I35.1 Nonrheumatic aortic (valve) insufficiency; K59.00 Constipation, unspecified; Z79.01 Long term (current) use of anticoagulants; Z79.84 Long term (current) use of oral hypoglycemic drugs; Z79.899 Other long term (current) drug therapy; Z90.79 Acquired absence of other genital organ(s); Z85.46 Personal history of malignant neoplasm of prostate; Z87.891 Personal history of nicotine dependence; W11.XXXA Fall on and from ladder, initial encounter; Y93.H2 Activity, gardening and landscaping
CPT/HCPCS: 36430; 70450; 71010; 71260; 72100; 72125; 72131; 72148; 72170; 74177; 76000; 76937; 80048; 80053; 81001; 82948; 83735; 84100; 85025; 85027; 85610; 85730; 86850; 86900; 86901; 86927; 93005; 93306; 94002; 94003; 94150; 94640; 94667; 94668; 96372; C1713; C9113; J0131; J0690; J1170; J1580; J1644; J1650; J1940; J2250; J2270; J2370; J2405; J3010; J3370; J3430; J3480; J7030; J7050; J7120; L0200; L0484; P9017; Q9967